=== PATIENT | female | born 1955 | race Caucasian/White ===

== ENCOUNTER → 2017-08-07 09:09 | Outpatient (POV) | payer MEDICARE, SELFPAY | PROVIDERS: PCP Family Medicine; Visit Provider Otolaryngology | DX: Z00.00 Encounter for general adult medical examination without abnormal findings (principal) ==

== ENCOUNTER → 2018-07-03 14:05 | Outpatient (CLI) | payer MEDICARE, SELFPAY ==
--- NOTE | 2018-07-03 14:16 | XR_ITS ---
XR ribs LT min 3V w CXR1V HISTORY: ITS.REASON: LT SIDE RIB PAIN ORDERING PHYSICIAN: Fanta Molina MD PATIENT AGE: 62 years Comparison: 12/15/2016 FINDINGS: A frontal view of the chest shows no acute finding. Multiple views of the Left ribs were obtained. No acute fracture or dislocation. No lytic or blastic change. There are old fractures of the right sixth and seventh ribs. IMPRESSION: Negative left RIBS. If pain persists, consider follow-up exam in 7-[address] with 3-D reformats.
--- NOTE | 2018-07-03 14:16 | XR_ITS ---
EXAM: XR thoracic spine 3V HISTORY: Posttraumatic pain ITS.REASON: THORACIC PAIN Comparison: 09/12/2016 FINDINGS: Normal alignment. No fracture or dislocation. No lytic or blastic change. Degenerative disc disease involves the mid and lower thoracic spine with prominent anterior osteophytes at T9, T10, and T11. IMPRESSION: Degenerative change, no acute finding
== END ==
PROVIDERS: PCP Family Medicine; Visit Provider Family Medicine
DX: M54.6 Pain in thoracic spine (principal); R07.81 Pleurodynia
CPT/HCPCS: 71101; 72072

== ENCOUNTER → 2018-12-09 12:07 | Outpatient (CLI) | payer MEDICARE, SELFPAY ==
--- NOTE | 2018-12-09 12:12 | XR_ITS ---
EXAM: XR cervical spine 5V HISTORY: Neck pain ITS.REASON: CERVICAL PAIN ORDERING PHYSICIAN: Carole Orozco APRN PATIENT AGE: 63 years COMPARISON: None FINDINGS: There is slight reversal of the cervical lordosis. This could be due to patient positioning or muscle spasm. There is minimal anterolisthesis of C3 on C4 with mild kyphosis at that level. No prevertebral soft tissue swelling. There is degenerative disc disease at C3 C4 C4 C5 C5 C6 and C6-C7. This is most severe at C5-C6 and C6-C7. There are anterior osteophytes at C4, C5, and C6. Foraminal narrowing is present on the right at C4-C5 and on the left at C4-C5 and C5-C6. Facet hypertrophic changes are present from C3 to C6. No fracture or dislocation. No lytic or blastic change. IMPRESSION: Spondylosis of the cervical spine with multilevel degenerative disc disease and facet arthritic change. Please see above for detailed description
== END ==
PROVIDERS: PCP Nurse Practitioner Family; Visit Provider Nurse Practitioner Family
DX: M54.2 Cervicalgia (principal)
CPT/HCPCS: 72050

== ENCOUNTER → 2018-12-10 08:42 | Outpatient (CLI) | payer MEDICARE, SELFPAY ==
[2018-12-10 09:05] LABS: Basophils % 0.5 % (0.1-2.0); Eosinophils # 0.2 K/mm3 (0.0-0.4); Eosinophils % 3.6 % (0.1-12.0); Hematocrit 43.2 % (37.0-47.0); Hemoglobin 13.9 g/dL (12.2-16.2); Lymphocytes # 1.4 K/mm3 (0.7-4.5); Lymphocytes % 25.5 % (10-50); Mean Corpuscular HGB Conc 32.1 g/dL (31.8-35.4); Mean Corpuscular Hemoglobin 25.7 pg (27.0-31.2); Mean Corpuscular Volume 80.1 fl (81-99); Mean Platelet Volume 8.9 fl (7.4-10.4); Monocytes # 0.4 K/mm3 (0.1-1.0); Monocytes % 7.2 % (1.7-9.3); Neutrophils # 3.4 K/mm3 (1.8-7.8); Neutrophils % 63.1 % (37.0-80.0); Platelet Count 166 K/mm3 (142-424); Red Blood Count 5.39 M/mm3 (4.20-5.40); Red Cell Distribution Width 13.3 % (11.5-17.5); White Blood Count 5.3 K/mm3 (4.8-10.8)
[2018-12-10 12:11] LABS: Alanine Aminotransferase 35 U/L (12-78); Albumin Level 3.9 gm/dL (3.4-5.0); Albumin/Globulin Ratio 1.3 (1.1-1.8); Alkaline Phosphatase 141 U/L (46-116); Aspartate Amino Transferase 17 U/L (15-37); Bilirubin,Total 0.4 mg/dL (0.2-1.0); Blood Urea Nitrogen 19 mg/dL (7-18); Calcium 8.9 mg/dL (8.5-10.1); Carbon Dioxide 28 mmol/L (21.0-32.0); Chloride 105 mmol/L (98-107); Chol/HDL Ratio 7.4 (1-3.5); Cholesterol 237 mg/dL (140-200); Creatinine,Serum 0.72 mg/dL (0.55-1.02); Estimated Glomerular Filt Rate 81 ml/min (>60); GFR (African American) 98 ML/MIN (>60); Glucose 188 mg/dL (74-106); HDL Cholesterol 32 mg/dL (29-89); Sodium 141 mmol/L (136-145); Total Protein,Serum 6.9 gm/dL (6.4-8.2)
[2018-12-10 12:20] LABS: Triglycerides 457 mg/dL (30-200)
[2018-12-10 12:21] LABS: Hemoglobin A1C 7.4 % (0.0-7.0)
== END ==
PROVIDERS: Visit Provider Nurse Practitioner Family
DX: E11.9 Type 2 diabetes mellitus without complications (principal); Z13.220 Encounter for screening for lipoid disorders
CPT/HCPCS: 36415; 80053; 80061; 83036; 85025

== ENCOUNTER → 2019-12-15 09:32 | Outpatient (CLI) | payer MEDICARE, SELFPAY ==
--- NOTE | 2019-12-15 09:42 | MR_ITS ---
PROCEDURE: MR HEAD/BRAIN WO/W CON CLINICAL INDICATION: IMBALANCE Imbalance when walking, shifts to the right COMPARISON: HWWO CT HEAD-W/WO CONTRAST from 04/19/2015 TECHNIQUE: Routine multiplanar multi echo sequences are performed without and with gadolinium enhancement. FINDINGS: No midline shift, mass effect, intracranial hemorrhage, or hydrocephalus. No evidence of acute infarction. The cerebellopontine angle, cerebellum, midbrain, and brainstem have an unremarkable appearance. No evidence of acute infarction. No enhancing lesions are evident. There are a few periventricular and subcortical T2 white matter hyperintensities noted. These do not demonstrate restricted diffusion and do not enhance with contrast. The pituitary, optic chiasm, corpus callosum, and craniocervical junction have an unremarkable appearance. No mastoid effusion or sinus air-fluid level. IMPRESSION: 1. No acute intracranial finding. 2. Nonspecific scattered periventricular and subcortical T2 white matter hyperintensities. This may represent ischemic gliotic foci from microvascular disease. Migraine headache also included in the differential diagnosis. Demyelinating process not totally excluded but felt to be less likely based on characteristics Dictated by: Edgar Otoole MD 12/16/2019 11:37 Electronically signed by Edgar Otoole MD in [place] 12/16/2019 11:37
--- NOTE | 2019-12-15 10:39 | CA_ITS ---
APPROVED REPORT Travel Professional: ELLEN Laterality: Bilateral Indications: imbalance Risk Factors Hypertension: Hyperlipidemia Doppler Spectral Velocity Analysis ECA (R) 111.40/15.40 cm/s ECA (L) 89.10/19.70 cm/s dICA (R) 77.10/24.40 cm/s dICA (L) 100.20/35.10 cm/s Lili (R) 80.30/28.30 cm/s Lili (L) 91.70/30.80 cm/s pICA (R) 71.30/18.00 cm/s pICA (L) 54.00/15.00 cm/s dCCA (R) 54.00/9.40 cm/s dCCA (L) 74.80/19.50 cm/s pCCA (R) 127.20/24.60 cm/s pCCA (L) 101.00/17.20 cm/s Vert (R) 51.40/9.00 cm/s Vert (L) 57.40/12.90 cm/s ICA/CCA 1.49 ICA/CCA 1.34 Findings Duplex evaluation demonstrates stenosis of the right proximal internal carotid artery <20% with PSV <140 cm/sec, EDV <100 cm/sec, and IC/CC Ratio <4.0.Duplex evaluation demonstrates stenosis of the left proximal internal carotid artery <20% with PSV <140 cm/sec, EDV <100 cm/sec, and IC/CC Ratio <4.0. Conclusion No increased velocities to suggest hemodynamically significant stenosis in either internal carotid artery. Electronically signed by : Edgar Otoole MD 12/15/2019 18:06:56
== END ==
PROVIDERS: PCP Family Medicine; Visit Provider Family Medicine
DX: R26.89 Other abnormalities of gait and mobility (principal)
CPT/HCPCS: 70553; 93880; A9576

== ENCOUNTER → 2020-08-03 11:26 | Outpatient (CLI) | payer MEDICARE, SELFPAY ==
--- NOTE | 2020-08-03 11:46 | CT_ITS ---
PROCEDURE: CT ABDOMEN PELVIS W CON CLINICAL INDICATION: DIVERTICULITIS Left sided abdominal pain with diarrhea COMPARISON: CT ABDPELW CT ABD PELVIS W/ CONTRAST from 05/19/2016 TECHNIQUE: IV Contrast: 75ML Isovue 370 Oral Contrast None Axial images obtained with sagittal and coronal reformats. All CT scans at the facility use one or more dose reduction, viz: automated exposure control, ma/kV adjustment per patient size (including targeted exams where dose is matched to indication, i.e. head), or iterative reconstruction technique. FINDINGS: LOWER THORAX: 12 mm noncalcified nodules present in the left lung base posteriorly. This has developed since the previous exam. ABDOMEN & PELVIS: The liver has an unremarkable appearance. There is a small hiatal hernia. The spleen is enlarged at 18 cm. There are some small periportal lymph nodes. The adrenal glands and pancreas have an unremarkable appearance. No renal or ureteral calculi. No hydronephrosis. There is diverticulosis of the transverse descending and sigmoid colon. There is focal thickening of the junction of the descending and sigmoid colon with stranding of the pericolic fat consistent with acute diverticulitis. No abscess. No free air.. Suspect hemangioma involvement of T9 with some mild compression changes. There are degenerative changes of the lumbar spine. IMPRESSION: 1. Acute diverticulitis of the junction of the descending and sigmoid colon in the left lower quadrant. No evidence of abscess or perforation. 2. Colonic diverticulosis 3. Small hiatal hernia. 4. Splenomegaly. 5. 12 mm noncalcified nodule left lower lobe. Nonemergent dedicated CT chest may provide further evaluation. This has developed since the previous exam. Neoplasm is not excluded. Dictated by: Edgar Otoole MD 08/03/2020 15:55 Edgar Otoole MD in [place] 08/03/2020 15:55
[2020-08-03 11:55] LABS: Blood Urea Nitrogen 10 mg/dl (7-17); Estimated Glomerular Filt Rate 100 ml/min (>60); GFR (African American) 121 ML/MIN (>60)
== END ==
PROVIDERS: Visit Provider Family Medicine
DX: K57.92 Diverticulitis of intestine, part unspecified, without perforation or abscess without bleeding (principal)
CPT/HCPCS: 36415; 74177; 82565; 84520; Q9967

== ENCOUNTER → 2020-08-06 11:13 | Outpatient (CLI) | payer MEDICARE, SELFPAY ==
--- NOTE | 2020-08-06 11:17 | CT_ITS ---
PROCEDURE: CT CHEST W CON CLINCAL INDICATION: LUNG NODULE lung nodule seen on ct a/p, 08/03/20 COMPARISON: CT ABDPELW CT ABD PELVIS W/ CONTRAST from 05/19/[address] ABDOMEN PELVIS W CON from 08/03/2020 TECHNIQUE: IV Contrast: 75ml Isovue 370 Axial images obtained with sagittal and coronal reformats. All CT scans at the facility use one or more dose reduction, viz: automated exposure control, ma/kV adjustment per patient size (including targeted exams where dose is matched to indication, i.e. head), or iterative reconstruction technique. FINDINGS: HEART AND MEDIASTINAL STRUCTURES: There are few small mediastinal lymph nodes. No dominant adenopathy. No mediastinal or hilar mass. 1 cm hypodensity left lobe of the thyroid gland with small calcification. The left lobe of the thyroid gland is slightly enlarged. LUNGS AND PLEURAL SPACES: There are scattered areas of scarring. Subpleural opacity is present in the left upper lobe laterally at 4 mm nonspecific. 4 mm nodular opacity is present in the lingula posteriorly image 36 series 3. There is a 15 mm spiculated nodule in the left lower lobe with some micro nodularity along its inferior aspect. This is suspicious for neoplasm. This nodule abuts the hemidiaphragm along its inferior margin. BONY STRUCTURES: There is sclerosis of the T10 vertebral body with a corrugated appearance which may be due to hemangiomatous involvement UPPER ABDOMEN: Unremarkable. ADDITIONAL FINDINGS: No other significant abnormalities. IMPRESSION: 15 mm spiculated nodule in the left lower lobe suspicious for neoplasm. Pulmonology consult may be in order. PET CT and or tissue sampling considered for further evaluation.. Dictated by: Edgar Otoole MD 08/08/2020 11:31 Edgar Otoole MD in [place] 08/08/2020 11:31
== END ==
PROVIDERS: PCP Family Medicine; Visit Provider Family Medicine
DX: R91.1 Solitary pulmonary nodule (principal)
CPT/HCPCS: 71260; Q9967

== ENCOUNTER → 2020-09-13 09:40 | Outpatient (CLI) | payer MEDICARE, SELFPAY ==
--- NOTE | 2020-09-13 10:45 | PC.NURSE ---
PFT completed without incident. Pt given Albuterol 0.083% via [facility] per written protocol, Pt tolerated tx well. 6 Minute Walk Test ordered however Pt refuses. 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 Contreras.
== END ==
PROVIDERS: PCP Family Medicine; Visit Provider Internal Medicine Pulmonary Disease
DX: R06.09 Other forms of dyspnea (principal)
CPT/HCPCS: 94060; 94726; 94729

== ENCOUNTER → 2020-10-19 09:40 | Outpatient (CLI) | payer MEDICARE, SELFPAY ==
--- NOTE | 2020-10-19 09:40 | US_ITS ---
PROCEDURE: US FNA THYROID CLINICAL INDICATION: Thyroid nodule COMPARISON: US US THYROID from 10/19/2020 TECHNIQUE: There is a dominant nodule in the lower pole on the left. This area was targeted for biopsy. Following obtaining informed consent, using aseptic technique and local anesthesia with buffered lidocaine, fine-needle aspiration was performed of the nodule of interest using sonographic guidance. 3 passes were made into the nodule with a 21 gauge needle. Specimen was given to cytology. The patient tolerated the procedure well without evidence of immediate complications and left the ultrasound suite in stable condition. FINDINGS: There is a dominant nodule in the lower pole on the left. CYTOLOGY: Atypical follicular lesion of undetermined significance, Hurthle cell type IMPRESSION: Uneventful ultrasound-guided fine needle aspiration the left thyroid nodule. 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
--- NOTE | 2020-10-19 10:06 | US_ITS ---
PROCEDURE: US THYROID CLINICAL INDICATION: LT THYROID NODULE COMPARISON: CT CT CHEST W CON from 08/06/2020 FINDINGS: Right lobe: 3.2 x 1.2 x 1 cm. Homogeneous echogenicity. No discrete nodule Left lobe: 3.9 x 1.9 x 1.9 cm. In the upper pole there is a slightly hyperechoic 5 mm nodule. In the mid polar region there is a 3 mm hypoechoic nodule. In the lower pole there is a dominant 2 x 1.8 cm nodule with some internal calcifications. The nodule is wider than tall with a lobular contour. T rads level 4. FNA recommended. Isthmus: Unremarkable Additional findings: IMPRESSION: Dominant 2 cm nodule in the lower pole of the left lobe of the thyroid gland T rads level 4. FNA suggested which was performed on the same day. Dictated by: Edgar Otoole MD 10/19/2020 11:03 Edgar Otoole MD in [place] 10/19/2020 11:03
== END ==
PROVIDERS: PCP Family Medicine; Visit Provider Internal Medicine Pulmonary Disease
DX: E04.1 Nontoxic single thyroid nodule (principal)
CPT/HCPCS: 10005; 76536; 88173

== ENCOUNTER → 2020-11-15 15:51 | Outpatient (CLI) | payer MEDICARE, SELFPAY ==
--- NOTE | 2020-11-15 15:57 | XR_ITS ---
PROCEDURE: XR ANKLE LT MIN 3V CLINICAL INDICATION: FELL OFF PORCH 24 HOURS AGO..PAIN AND SWELLING COMPARISON: CR FTL3 FOOT-LT-3 VIEWS from 07/22/2015 FINDINGS: Prominent soft tissue swelling is present along the lateral malleolus. There is a faint calcific density distal to the tip of the lateral malleolus suspicious for an avulsion fracture. The fracture fragment measures approximately 9 x 2 mm. The bone of origin is undetermined based on this exam. Bone of origin may be either from the talus or the distal fibula. There is also noted prior ORIF with fusion of the 1st carpal and medial cuneiform. The proximal screw within the bone plate is fractured and the screw fragments are distracted by 5 mm. The longitudinal screw within the 1st metacarpal and medial cuneiform is also fracture proximally. The prosthesis is incompletely imaged. IMPRESSION: 1. Avulsion fracture at the distal aspect of the fibula/proximal talus with soft tissue swelling 2. At least 2 screws fractured at the 1st metacarpal carpal bone plate. Dictated by: Edgar Otoole MD 11/15/2020 16:30 Edgar Otoole MD in [place] 11/15/2020 16:30
== END ==
PROVIDERS: PCP Family Medicine; Visit Provider Family Medicine
DX: M25.572 Pain in left ankle and joints of left foot (principal)
CPT/HCPCS: 73610

== ENCOUNTER 2020-11-17 09:24 | Outpatient (RCR) | payer MEDICARE, SELFPAY | END 2020-11-17 10:47 | disposition home or self-care (01) | LOC: PT 09:24 | PROVIDERS: Visit Provider Family Medicine | DX: S82.892A Other fracture of left lower leg, initial encounter for closed fracture (principal) | CPT/HCPCS: 97760 ==

== ENCOUNTER → 2020-11-17 09:56 | Outpatient (CLI) | payer MEDICARE, SELFPAY ==
--- NOTE | 2020-11-17 10:07 | XR_ITS ---
PROCEDURE: XR FOOT WT BEARING LT 3V CLINICAL INDICATION: Pain, hardware failure COMPARISON: CR FTL3 FOOT-LT-3 VIEWS from 05/13/2015 CR FTL3 FOOT-LT-3 VIEWS from 07/22/2015 CR FTL3 FOOT-LT-3 VIEWS from 02/15/2016 FINDINGS: Hallux valgus with osteoarthritis 1st metatarsophalangeal joint slightly worse. Two screws are present in the distal aspect of the 2nd metatarsal with an old fracture at this area. There is a dorsal bone plate at the 1st metatarsal tarsal junction with prominent zone of lucency deep to the bone plate. There is a fractured screw which is along the medial and proximal aspect of this bone plate. Along the distal and medial aspect of the bone plate there is an additional screw which appears to be distracting withdrawing approximately 4 mm from the surface of the bone plate. A longitudinal screw extending from the base of the 1st metatarsal into the medial cuneiform is fractured in the medial cuneiform area. There is pes planus. There is prominent bony spurring along the dorsal aspect of the 1st tarsal metatarsal junction. Osteoarthritic changes are present at the navicular cuneiform and tarsal metatarsal junction. There is pes planus. IMPRESSION: Findings are compatible with hardware failure from prior 1st tarsal metatarsal fusion as detailed above. Hallux valgus with osteoarthritis Prior ORIF distal aspect of 2nd metatarsal. Dictated by: Edgar Otoole MD 11/17/2020 12:18 Edgar Otoole MD in [place] 11/17/2020 12:18
== END ==
PROVIDERS: PCP Family Medicine; Visit Provider Podiatrist
DX: M79.673 Pain in unspecified foot (principal); Z96.9 Presence of functional implant, unspecified
CPT/HCPCS: 73630

== ENCOUNTER → 2020-12-03 14:53 | Outpatient (CLI) | payer MEDICARE, SELFPAY ==
--- NOTE | 2020-12-03 14:53 | CT_ITS ---
PROCEDURE: CT CHEST WO CON CLINICAL INDICATION: 3 moth F/U from 09/13/20 Follow-up pulmonary nodule COMPARISON: CT ABDPELW CT ABD PELVIS W/ CONTRAST from 04/05/[address] ABD PELVIS W/ CONTRAST from 05/19/[address] CHEST W CON from 08/06/2020 TECHNIQUE: Axial images obtained with sagittal and coronal reformats. All CT scans at the facility use one or more dose reduction, viz: automated exposure control, ma/kV adjustment per patient size (including targeted exams where dose is matched to indication, i.e. head), or iterative reconstruction technique. FINDINGS: HEART AND MEDIASTINAL STRUCTURES: Left lobe of the thyroid gland is prominent with a 1 cm nodule as previously described. No mediastinal or hilar mass. There are few small mediastinal nodes unchanged. Coronary artery calcifications are present. There is a small hiatal hernia. LUNGS AND PLEURAL SPACES: Scattered areas of scarring are once again noted. A spiculated nodule is once again noted in the left lower lobe in the lung base posteriorly. The nodule does not appear significantly changed in size and at the largest dimensions measures approximately 16 x 14 mm. No new nodules are evident. BONY STRUCTURES: There is mixed sclerotic and lucent changes of the T9 vertebral body with a corrugated appearance consistent with a hemangioma not significantly changed dating back to 04/05/2016. UPPER ABDOMEN: Fatty liver changes. Unremarkable adrenal glands. ADDITIONAL FINDINGS: There is a nodular density in the right breast superior and lateral to the nipple measuring approximately 8 mm. IMPRESSION: Overall stable CT appearance of the chest. No change in the sclerotic lesion of the left lower lobe. Continued follow-up suggested. Neoplasm is not excluded. 8 mm nodular opacity in the right breast laterally. Suggest mammogram and ultrasound for further evaluation. Dictated by: Edgar Otoole MD 12/06/2020 08:30 Edgar Otoole MD in [place] 12/06/2020 08:30
== END ==
PROVIDERS: PCP Family Medicine; Visit Provider Internal Medicine Pulmonary Disease
DX: R91.8 Other nonspecific abnormal finding of lung field (principal)
CPT/HCPCS: 71250

== ENCOUNTER → 2020-12-17 13:24 | Outpatient (CLI) | payer MEDICARE, SELFPAY ==
--- NOTE | 2020-12-17 13:25 | XR_ITS ---
PROCEDURE: XR DEXA AXIAL SKELETON CLINICAL HISTORY: surgical planning COMPARISON: CR BONE3 BONE DENSITOMETRY(HIP:LT SPINE from 09/15/2016 FINDINGS: The right hip BMD is 0.595 with a T-score of -2.3. The left hip BMD is 0.602 with a T-score of -2.2. The lumbar spine BMD is 0.988 with a T-score of -0.5. IMPRESSION: This patient is considered osteopenic according to the World Health Organization criteria. Bone density is between 10 and 25 percent below young normal. Fracture risk is moderate. Treatment is advised. Based on these results a follow-up exam is recommended in 2 years. Dictated by: Andrea Faulkner MD 12/17/2020 14:33 Andrea Faulkner MD in [place] 12/17/2020 14:33
--- NOTE | 2020-12-17 13:57 | CT_ITS ---
PROCEDURE INFORMATION: Exam: CT Left Lower Extremity Without Contrast, Foot Exam date and time: 12/17/2020 1:57 PM Age: 65 years old Clinical indication: Pain; Foot; Right; Prior surgery; Surgery date: 6+ months; Additional info: HX of bunionectomy, hardware failure. TECHNIQUE: Imaging protocol: CT of the Left lower extremity without contrast was performed. Exam focused on the foot. 3D rendering (Not supervised by radiologist): MIP and/or 3D reconstructed images were created by the technologist. Radiation optimization: All CT scans at this facility use at least one of these dose optimization techniques: automated exposure control; mA and/or kV adjustment per patient size (includes targeted exams where dose is matched to clinical indication); or iterative reconstruction. COMPARISON: EXTLLWO CT EXT.LOWER-LT-W/O CONTRAST 02/22/2016 8:00 AM FINDINGS: Bones/joints: Postoperative changes of the 1st tarsometatarsal joint are present with plate and screws in place. There is loosening of the hardware noted. There is a fracture of a screw along the medial bony plate at the 1st tarsometatarsal joint with a 2nd screw noted with slight distraction. There is a fracture of the screw present at the base of the 1st metatarsal into the medial cuneiform. Hallux valgus deformity is present. Postoperative changes of the distal 2nd metatarsal with pins in place. There is no evidence of acute fracture. There is no evidence of acute fracture. There is no evidence of joint malalignment or dislocation. Arthritic changes of the 1st metatarsophalangeal joint present. Soft tissues: Normal. IMPRESSION: 1. Postoperative changes of the 1st tarsometatarsal joint are present with plate and screws in place. There is loosening of the hardware noted. 2. There is a fracture of a screw along the medial bony plate at the 1st tarsometatarsal joint with a 2nd screw noted with slight distraction. 3. There is a fracture of the screw present at the base of the 1st metatarsal into the medial cuneiform. 4. Hallux valgus deformity is present. 5. Postoperative changes of the distal 2nd metatarsal with pins in place. 6. No evidence of acute fracture. 7. No evidence of acute fracture. 8. No evidence of acute dislocation. 9. Arthritic changes of the 1st metatarsophalangeal joint present.
== END ==
PROVIDERS: PCP Family Medicine; Visit Provider Nurse Practitioner
DX: M81.0 Age-related osteoporosis without current pathological fracture (principal); Z98.890 Other specified postprocedural states
CPT/HCPCS: 73700; 77080

== ENCOUNTER → 2021-01-12 15:22 | Outpatient (CLI) | payer MEDICARE, SELFPAY | PROVIDERS: Visit Provider Otolaryngology | DX: Z01.818 Encounter for other preprocedural examination (principal); Z11.52 Encounter for screening for COVID-19; E07.9 Disorder of thyroid, unspecified | CPT/HCPCS: U0003 ==

== ENCOUNTER → 2021-06-13 14:50 | Outpatient (CLI) | payer MEDICARE, SELFPAY ==
--- NOTE | 2021-06-13 14:50 | CT_ITS ---
PROCEDURE INFORMATION: Exam: CT Chest Without Contrast; Diagnostic Exam date and time: 06/13/2021 2:50 PM Age: 65 years old Clinical indication: Abnormal findings; Lung mass or nodule; Not specified; Patient HX: 6 month f/ u left lung nodule; Additional info: 6-month follow-up TECHNIQUE: Imaging protocol: Diagnostic computed tomography of the chest without contrast. Radiation optimization: All CT scans at this facility use at least one of these dose optimization techniques: automated exposure control; mA and/or kV adjustment per patient size (includes targeted exams where dose is matched to clinical indication); or iterative reconstruction. COMPARISON: CT CHEST WO CON 12/03/2020 3:[address] chest dated 08/06/2020 FINDINGS: Lungs: Irregular noncalcified nodule within the left lower lobe measuring 16 x 14 mm (series 3, image 56), not significantly changed from comparison studies. No new pulmonary nodules. Pleural spaces: Unremarkable. No pneumothorax. No pleural effusion. Heart: Mild three-vessel coronary artery atherosclerotic calcification. Aorta: No aortic aneurysm. Lymph nodes: No enlarged lymph nodes. Diaphragm: Small-sized hiatal hernia. Liver: Mild hepatic steatosis. Bones/joints: Hemangioma within the T9 vertebral body, unchanged. Multilevel thoracic spine degenerative disc space narrowing and osteophyte formation. Soft tissues: No significant change in previously described 8 mm soft tissue attenuation nodule within the right breast. IMPRESSION: 1. Irregular noncalcified nodule within the left lower lobe measuring 16 x 14 mm (series 3, image 56), not significantly changed from comparison studies. No new pulmonary nodules.For both low risk and high risk patients, consider CT Chest at 3 months, PET/CT, or biopsy. (Reference: Tory) 2. No acute thoracic abnormality. REFERENCES: Tory Marie et al. Guidelines for Management of Incidental Pulmonary Nodules Detected on CT Images: From the Fleischner Society 2017. Radiology. 2017;284(1):228-243.
== END ==
PROVIDERS: PCP Family Medicine; Visit Provider Internal Medicine Pulmonary Disease
DX: R91.8 Other nonspecific abnormal finding of lung field (principal)
CPT/HCPCS: 71250

== ENCOUNTER → 2021-08-12 09:25 | Outpatient (CLI) | payer MEDICARE, SELFPAY ==
[2021-08-12 10:19] LABS: Basophils # 0.1 K/mm3 (0-0.2); Basophils % 1.2 % (0.1-2.0); Eosinophils # 0.2 K/mm3 (0.0-0.4); Eosinophils % 4.1 % (0.1-12.0); Hematocrit 41.9 % (37.0-47.0); Hemoglobin 13.5 g/dL (12.2-16.2); Lymphocytes # 1.2 K/mm3 (0.7-4.5); Mean Corpuscular HGB Conc 32.1 g/dL (31.8-35.4); Mean Corpuscular Hemoglobin 28.8 pg (27.0-31.2); Mean Corpuscular Volume 89.5 fl (81-99); Monocytes # 0.3 K/mm3 (0.1-1.0); Monocytes % 5.3 % (1.7-9.3); Neutrophils # 3.5 K/mm3 (1.8-7.8); Neutrophils % 66.4 % (37.0-80.0); Platelet Count 154 K/mm3 (142-424); Red Blood Count 4.67 M/mm3 (4.20-5.40); Red Cell Distribution Width 14.1 % (11.5-17.5); White Blood Count 5.2 K/mm3 (4.8-10.8)
[2021-08-12 11:22] LABS: Alanine Aminotransferase 26 U/L (12-78); Albumin Level 4.6 g/dl (3.5-5.0); Albumin/Globulin Ratio 1.9 (1.1-1.8); Alkaline Phosphatase 104 U/L (38-126); Aspartate Amino Transferase 26 U/L (14-36); Bilirubin,Total 0.6 mg/dl (0.2-1.3); Blood Urea Nitrogen 12 mg/dl (7-17); Calcium 8.9 mg/dl (8.4-10.2); Carbon Dioxide 26 mmol/L (22.0-30.0); Chloride 104 mmol/L (98-107); Estimated Glomerular Filt Rate 83 ml/min (>60); GFR (African American) 101 ML/MIN (>60); Globulin 2.4 g/dL (1.3-3.2); Glucose 283 mg/dl (74-100); Sodium 138 mmol/L (136-145)
[2021-08-12 11:28] LABS: C-Reactive Protein 5.1 mg/L (0-4)
[2021-08-12 11:33] LABS: Intact Parathyroid Hormone 60.2 pg/mL (7.5-53.5)
[2021-08-12 11:38] LABS: T4 (Thyroxine) 6.5 ug/dl (5.53-11.0)
[2021-08-12 12:50] LABS: Erythrocyte Sedimentation Rate 25 mm/hr (0-30)
[2021-08-22 09:10] LABS: 1,25 Dihydroxy Vitamin D 66 pg/mL (.); 1,25-Dihydroxy, Vitamin D-2 <10 pg/mL (.); 1,25-Dihydroxy, Vitamin D-3 57 pg/mL (.)
[2021-08-26 21:43] LABS: Cotinine 19.8; Nicotine 1.6
== END ==
PROVIDERS: Podiatrist; PCP Family Medicine; Visit Provider Otolaryngology
DX: E04.1 Nontoxic single thyroid nodule (principal); E11.40 Type 2 diabetes mellitus with diabetic neuropathy, unspecified; M20.12 Hallux valgus (acquired), left foot; M21.612 Bunion of left foot; Z98.890 Other specified postprocedural states; L02.619 Cutaneous abscess of unspecified foot; L03.119 Cellulitis of unspecified part of limb; T85.698A Other mechanical complication of other specified internal prosthetic devices, implants and grafts, initial encounter; Z79.899 Other long term (current) drug therapy; Z79.84 Long term (current) use of oral hypoglycemic drugs
CPT/HCPCS: 36415; 80053; 80323; 82652; 83970; 84436; 84443; 85025; 85651; 86140

== ENCOUNTER → 2021-10-10 13:20 | Outpatient (CLI) | payer MEDICARE, SELFPAY ==
--- NOTE | 2021-10-10 13:24 | XR_ITS ---
FINAL REPORT CLINICAL HISTORY: LEFT FOOT PAIN COMPARISON: November 17, 2020 FINDINGS: 3 views of the left foot were obtained. There is a sideplate and screws securing the 1st tarsometatarsal joint. There are orthopedic screws in the 2nd metatarsal head. There are moderate hypertrophic changes at the 1st MTP joint. IMPRESSION: Postoperative changes, stable. Reviewed, Interpreted and Dictated by Meek Roy MD Transcribed by Kurt Herrera Authenticated by Meek Roy MD on 10/10/2021 02:41:42 PM [facility]
== END ==
PROVIDERS: PCP Family Medicine; Visit Provider Podiatrist
DX: M20.12 Hallux valgus (acquired), left foot (principal); M21.612 Bunion of left foot; Z96.9 Presence of functional implant, unspecified; Z98.890 Other specified postprocedural states
CPT/HCPCS: 73630

== ENCOUNTER 2021-10-19 17:01 | Emergency (ER) | payer MEDICARE, SELFPAY ==
[2021-10-19 19:15] VITALS: BP 0/0; PULSE 0; RESP 0; TEMP -17.7; TEMP 0; O2SAT 0
== END 2021-10-19 19:17 | disposition left against medical advice (07) ==
PROVIDERS: Emergency Provider Emergency Medicine; PCP Family Medicine
DX: Z53.21 Procedure and treatment not carried out due to patient leaving prior to being seen by health care provider (principal)
CPT/HCPCS: 99211

== ENCOUNTER → 2021-11-14 14:14 | Outpatient (CLI) | payer MEDICARE, SELFPAY ==
[2021-11-14 17:17] LABS: Free T4 (Free Thyroxine) 2.14 ng/dl (0.78-2.19)
== END ==
PROVIDERS: Visit Provider Otolaryngology
DX: E89.0 Postprocedural hypothyroidism (principal)
CPT/HCPCS: 36415; 84439; 84443

== ENCOUNTER → 2022-03-16 09:13 | Outpatient (CLI) | payer MEDICARE, SELFPAY ==
--- NOTE | 2022-03-16 09:17 | XR_ITS ---
FINAL REPORT TECHNIQUE: Bone densitometry calculations of the lumbar spine and left hip were obtained. CLINICAL HISTORY: .OSTEOPOROSIS COMPARISON: December 17, 2020 FINDINGS: DEXA BONE DENSITY AXIAL SKELETON Using L1-4, the bone mineral density of the spine is 0.955 g/cm2, corresponding to T-score of -0.8. Previously measured 0.988 g/cm2, corresponding to T-score of -0.5. Using the left hip, the bone mineral density of the femoral neck is 0.638 g/cm2, corresponding to a T-score of -1.9. Previously measured 0.602 g/cm2, corresponding to T-score of -2.2. NOTE: T-score: Standard deviation compared with peak bone mass of young adult mean. *Following the recommendations of the International Society of Bone densitometry, classification of hip BMD is based on the lower of two T-scores; total hip or femoral neck. IMPRESSION: Diminished bone mineral density of the lumbar spine and left hip consistent with osteopenia. FRAX 10 year fracture risk is 2.6% for a hip fracture and 11% for a major osteoporotic fracture. Reviewed, Interpreted and Dictated by Marco Herrera III, MD Transcribed by Heather Hamilton Authenticated and [facility]
== END ==
PROVIDERS: PCP Family Medicine; Visit Provider Family Medicine
DX: Z78.0 Asymptomatic menopausal state (principal)
CPT/HCPCS: 77080

== ENCOUNTER → 2022-06-07 10:59 | Outpatient (CLI) | payer MEDICARE, SELFPAY ==
--- NOTE | 2022-06-07 11:01 | CT_ITS ---
FINAL REPORT CLINICAL HISTORY: LUNG LESION COMPARISON: August 2020 FINDINGS: Before and after the administration of intravenous contrast, axial images through the chest were performed by computed tomography. This study was performed with techniques to keep radiation doses as low as reasonably achievable, (ALARA). Individualized dose reduction techniques using automated exposure control or adjustment of mA and/or kV according to the patient's size were employed. There is no axillary adenopathy. There is no hilar or mediastinal adenopathy. The heart size is normal. There is no pericardial or pleural effusion. Limited images of the upper abdomen demonstrate a small amount of ascites, new from prior. One there is a 16 mm left lower lobe nodule that previously measured 16 mm. No new infiltrate or nodule identified. IMPRESSION: Stable left lower lobe nodule is very likely benign. Additional follow-up in 1 year is recommended to evaluate for continued stability. Small amount of ascites in the upper abdomen, new. Reviewed, Interpreted and Dictated by Marco Herrera III, MD Transcribed by Kurt Herrera Authenticated and . [facility]
== END ==
PROVIDERS: PCP Family Medicine; Visit Provider Family Medicine
DX: R91.1 Solitary pulmonary nodule (principal)
CPT/HCPCS: 71270; Q9967

== ENCOUNTER → 2022-06-14 08:37 | Outpatient (CLI) | payer MEDICARE, SELFPAY ==
--- NOTE | 2022-06-14 08:43 | NM_ITS ---
FINAL REPORT CLINICAL HISTORY: DIFFUSE PAIN, lt hip pain, h/o breast cancer and thyroid cancer COMPARISON: Chest CT June 07, 2022 FINDINGS: Multiple projection images of the axial and appendicular skeleton were obtained after the intravenous injection of 26.2 mCi technetium 99m MDP. A focal area of increased tracer activity is seen in the lower thoracic spine. This corresponds to a mixed lytic and sclerotic lesion on the CT and is consistent with a bony metastasis. There is increased tracer activity involving the shoulders, knees and feet felt to represent degenerative change. No other area of abnormal tracer activity is identified to suggest neoplastic involvement. IMPRESSION: Focal increased tracer activity in the lower thoracic spine corresponding to a bony lesion on CT, and consistent with bony metastatic disease. No other abnormality identified to suggest neoplastic involvement. Authenticated and [facility]
== END ==
PROVIDERS: PCP Family Medicine; Visit Provider Family Medicine
DX: R52 Pain, unspecified (principal)
CPT/HCPCS: 78306; A9503

== ENCOUNTER → 2022-06-22 08:23 | Outpatient (CLI) | payer MEDICARE, SELFPAY ==
--- NOTE | 2022-06-22 08:25 | US_ITS ---
FINAL REPORT CLINICAL HISTORY: EPIGASTRIC PAIN FINDINGS: Limited sonographic images were obtained of the abdomen to evaluate the abdominal aorta and iliac arteries. The images are partially obscured secondary to bowel gas. There is no evidence of abdominal aortic aneurysm, the aorta measures up to 1.8 cm in greatest dimension. IMPRESSION: Partially obscured secondary to bowel gas. No evidence of abdominal aortic aneurysm. Reviewed, Interpreted and Dictated by Marco Herrera III, MD Transcribed by Heather Hamilton Authenticated and [facility]
== END ==
PROVIDERS: PCP Family Medicine; Visit Provider Family Medicine
DX: R10.13 Epigastric pain (principal)
CPT/HCPCS: 76705

== ENCOUNTER → 2022-06-29 08:14 | Outpatient (CLI) | payer MEDICARE, SELFPAY ==
--- NOTE | 2022-06-29 08:20 | US_ITS ---
FINAL REPORT CLINICAL HISTORY: PAIN FINDINGS: Sonographic images of the right upper quadrant were obtained. The pancreas is partially obscured. The liver has increased echogenicity consistent with fatty infiltration. The gallbladder appears normal without evidence of gallstones.There is no evidence of biliary ductal dilatation.The common duct measures 2 mm. Limited images of the right kidney are unremarkable. There is a small to moderate amount of ascites. IMPRESSION: Fatty liver. Small to moderate amount of ascites. Reviewed, Interpreted and Dictated by Marco Herrera III, MD Transcribed by Heather Hamilton Authenticated and [facility]
== END ==
PROVIDERS: PCP Family Medicine; Visit Provider Family Medicine
DX: R10.11 Right upper quadrant pain (principal)
CPT/HCPCS: 76705

== ENCOUNTER → 2022-07-07 10:47 | Outpatient (CLI) | payer MEDICARE, SELFPAY ==
--- NOTE | 2022-07-07 10:51 | CT_ITS ---
FINAL REPORT TECHNIQUE: Noncontrast CT exam of the abdomen and pelvis. This study was performed with techniques to keep radiation doses as low as reasonably achievable (ALARA). Individualized dose reduction techniques using automated exposure control or adjustment of mA and/or kV according to the patient''s size were employed. CLINICAL HISTORY: ABD PAIN COMPARISON: 08/03/2020 FINDINGS: Abdomen: There is a left lower lobe nodule measuring 16 mm, unchanged from prior. There is moderate hiatal hernia, significantly enlarged from prior. The gallbladder is present. There is mild splenomegaly. Liver, pancreas and adrenal glands have a normal CT appearance in their limited unenhanced state. There is moderate diffuse ascites of uncertain etiology. There is suggestion of omental nodularity raising question of underlying malignancy. The kidneys show no stone disease or obstruction. No obvious renal mass is present. No ureteral stones are present. Pelvis: There is distended small bowel suggesting partial obstruction although etiology of obstruction is not readily evident, ischemia is not excluded. There is a moderate amount fluid in the pelvis. There is fluid-filled mildly distended jejunum. Note is made of mild fecal impaction of the colon. Uterus is obstructed by free fluid. No distal ureteral stones are seen. Bladder is unremarkable. No adenopathy is seen. IMPRESSION: Distended fluid-filled small bowel, favor partial obstruction although ileus/ischemia could have a similar appearance. Moderate ascites with subtle omental nodularity, metastatic disease is not excluded. Follow-up CT with IV and oral contrast can better assess obstruction and potential malignancy. Reviewed, Interpreted and Dictated by Fanta Porter MD Transcribed by Carole Larios Authenticated and . [facility]
== END ==
PROVIDERS: PCP Family Medicine; Visit Provider Family Medicine
DX: R10.9 Unspecified abdominal pain (principal)
CPT/HCPCS: 74176

== ENCOUNTER 2022-07-24 09:57 | Observation (INO) | payer MEDICARE, SELFPAY ==
[2022-07-24] VITALS (22 sets, daily range): BP systolic 94–147; BP diastolic 47–85; PULSE 57–76; RESP 18–20; TEMP 36.4–36.8; O2SAT 93–100; BMI 30.9; BMI 31.2
--- NOTE | 2022-07-24 10:08 | CT_ITS ---
FINAL REPORT TECHNIQUE: Thin section axial images were obtained through the abdomen after intravenous contrast. Reconstruction images were obtained from the axial data. Exam was performed using dose reduction techniques. CLINICAL HISTORY: abdominal pain, new diagnosis of malignancy, vomit COMPARISON: 07/07/2022, 08/03/2020 FINDINGS: There is a stable 17 mm left lower lobe pulmonary nodule. The liver is fatty infiltrated without focal hepatic lesion. There is sludge or stones small stones in the gallbladder. The spleen, adrenal glands, and pancreas are without acute abnormality. The kidneys demonstrate no stones, mass, or hydronephrosis. A stable moderate hiatal hernia is seen. Proximal small bowel loops are decompressed. Again seen is distension of the more distal small bowel loops. There is a stable amount of abdominal ascites as described on the noncontrast exam from 07/07/2022. There is subtle nodularity to the omentum reason concern for peritoneal metastases. The uterus is either small or the patient has had partial hysterectomy. The ovaries are not well visualized. There is a mass in the right lower quadrant. A separate appendix is not identified. This is well seen on axial images 62-72. This lies along the inferior cecum and appears to contain some calcifications. This could be arising from the cecal wall or appendix, (separate appendix not identified), or may be a peritoneal metastasis. There is diverticulosis of the colon with no evidence of diverticulitis. No pelvic lymphadenopathy is seen. There are no acute osseous abnormalities. There is increased density to the entire T9 vertebral body. This is present on study from August 2020 and could be a large hemangioma. No additional bony lesions are seen. IMPRESSION: Stable left lower lobe pulmonary nodules. Metastasis is not excluded. Findings concerning for peritoneal metastases. Right lower quadrant cystic mass, organ origin unclear could be GI tract in origin, ovarian is not entirely excluded. Could also be a peritoneal metastasis. Persistent small bowel dilatation. Partial obstruction is not excluded. Stable ascites. Reviewed, Interpreted and Dictated by Mel Hopper MD Transcribed by Nidia Bhatia Authenticated and [facility]
--- NOTE | 2022-07-24 10:12 | PC.NURSE ---
spoke with dr thomas who states her concern for sending pt to ed was r/o sbo. dr thomas states she read a CT from 07/[address] littlejohn that suggested concern for sbo. in the office today pt reported to her she has been having abd pain x4 weeks and vomiting.
[2022-07-24 10:37] LABS: Basophils # 0.1 K/mm3 (0-0.2); Basophils % 0.8 % (0.1-2.0); Eosinophils # 0.1 K/mm3 (0.0-0.4); Eosinophils % 1.2 % (0.1-12.0); Hematocrit 40.1 % (37.0-47.0); Hemoglobin 13.3 g/dL (12.2-16.2); Lymphocytes # 0.8 K/mm3 (0.7-4.5); Mean Corpuscular HGB Conc 33.2 g/dL (31.8-35.4); Mean Corpuscular Hemoglobin 26.6 pg (27.0-31.2); Mean Corpuscular Volume 80.3 fl (81-99); Mean Platelet Volume 9.7 fl (7.4-10.4); Monocytes # 0.4 K/mm3 (0.1-1.0); Neutrophils # 4.9 K/mm3 (1.8-7.8); Platelet Count 267 K/mm3 (142-424); Red Cell Distribution Width 14.6 % (11.5-17.5); White Blood Count 6.1 K/mm3 (4.8-10.8)
[2022-07-24 10:41] LABS: Chloride 107 mmol/L (98-107); Potassium 4.4 mmoL/L (3.5-5.1); Sodium 139 mmol/L (136-145)
[2022-07-24 10:43] LABS: Alanine Aminotransferase 12 U/L (12-78); Alkaline Phosphatase 74 U/L (38-126); Anion Gap 11.4 mEq/L (5-15); Aspartate Amino Transferase 25 U/L (14-36); Bilirubin,Total 0.8 mg/dl (0.2-1.3); Blood Urea Nitrogen 16 mg/dl (7-17); Carbon Dioxide 25 mmol/L (22.0-30.0); Creatinine Clearance Estimated 65 mL/min (50-200); Estimated Glomerular Filt Rate 71 ml/min (>60); GFR (African American) 86 ML/MIN (>60); Lactic Acid 1.6 mmol/L (0.7-2.1)
[2022-07-24 10:44] LABS: Albumin Level 3.9 g/dl (3.5-5.0); Albumin/Globulin Ratio 1.2 (1.1-1.8); Calcium 8.9 mg/dl (8.4-10.2); Globulin 3.2 g/dL (1.3-3.2); Glucose 130 mg/dl (74-100); Lipase 28 U/L (23-300); Total Protein,Serum 7.1 g/dl (6.3-8.2)
[2022-07-24 10:46] LABS: Activated Partial Thrombo Time 26.6 seconds (22.8-30.6); INR 0.96 (0.9-1.1); Prothrombin Time 10.4 seconds (10.1-12.5)
[2022-07-24 10:50] LABS: Ethyl Alcohol < 10 mg/dl (0-10)
--- NOTE | 2022-07-24 10:58 | PC.NURSE ---
Rounded on patient, she is lying on ED stretcher and reports her pain is much better. No other needs at this time
--- NOTE | 2022-07-24 11:12 | PC.NURSE ---
pt to CT via wc with histotechnician
--- NOTE | 2022-07-24 11:22 | HMH.EDGENADL ---
Discharge Plan Disposition Patient Disposition: Admitted As Inpatient Condition: Good Clinical Impressions Clinical Impression: Intraabdominal mass, Peritoneal carcinomatosis, Partial small bowel obstruction, Multiple pulmonary nodules Abdominal ascites Qualifiers: Ascites type: malignant Qualified Code(s): R18.0 - Malignant ascites Discharge ED Provider: Ana Shah General Adult HPI General Chief complaint: Abdominal Pain Stated complaint: constipation,pain Time Seen by Provider: 07/24/22 10:00 Mode of Arrival: Ambulatory Source of Information: Patient Limitations: No Limitations Description of Symptoms (Recalled from ER Triage Doc. by RN): PT STATES SHE HAS HAD ABDOMINAL PAIN SINCE THE BEGINNING OF JUNE, SHE STATES SHE WAS DIAGNOSED WITH DIVERTICULITIS, REPORTS NAUSEA AND VOMITING, STATES PAIN IS EVERYWHERE AND DESCRIPTION CHANGES DAILY, TODAY SHE EXPLAIN IT MOSTLY IN HER RIGHT SIDE AND A DULL, ACHING PAIN, SHE REPORTS WEIGHT LOSS AND STATES SHE CAN'T EAT, ALSO REPORTS DIARRHEA, STATES SHE HASN'T HAD A BM IN 3 DAYS, REPORTS PASSING FLATUS, DENIES BLOOD IN STOOL, REPORTS HEARTBURN, SENT OVER FROM DR YAN'S OFFICE, PER HIM PT HAD CT SCAN ON THE AND WAS DIAGNOSED WITH SMALL BOWEL OBSTRUCTION THAT SHE WAS NEVER CALLED ABOUT AND DIAGNOSED WITH CANCER TODAY History of Present Illness HPI narrative: This patient is a 66-year-old female sent over from hematology/oncology, where she was being evaluated with concern for new metastatic disease, for evaluation of abdominal pain, nausea, and vomiting. She also states that she has had unintentional weight loss and significant abdominal bloating. She is not able to eat or drink. She states that she has been having significant heartburn as well. She has been taking Linzess in order to have bowel movements, she states that she is only able to pass straight water. She denies having any significant relieving bowel movements. She states she is vomiting every few days. Her last bowel movement was 3 days ago. She denies any blood in her stools or dark tarry stools. She is still passing gas. Nothing seems to make her symptoms better or worse. This started at the beginning of June, and she believes that it started with an episode of diverticulitis. She states that she had a CT scan done at that time, but she was never told anything. She had a CT scan done on 07/07/2022, which Dr. Yan reports is concerning for small bowel obstruction. Given this, that is why they sent her over today. Related Data Home Medications Medication Instructions Recorded Confirmed alprazolam 0.5 mg tablet 0.5 mg PO TID Anxiety 09/30/20 07/24/22 metoprolol succinate 50 mg 50 mg PO DAILY Hypertension 09/30/20 07/24/22 tablet,extended release 24 hr metformin 500 mg tablet 500 mg PO DAILY Diabetes 11/24/20 07/24/22 sertraline 100 mg tablet 100 mg PO DAILY Depression 11/24/20 07/24/22 naproxen 500 mg tablet 500 mg PO BID Pain 10/10/21 07/24/22 cholecalciferol (vitamin D3) 1,250 50,000 unit PO QWEEK Supplement 07/24/22 07/24/22 mcg (50,000 unit) capsule fentanyl 25 mcg/hr transdermal 1 patch transdermal Q48H Pain 07/24/22 07/24/22 patch glimepiride 2 mg tablet 2 mg PO DAILY Diabetes 07/24/22 07/24/22 levothyroxine 175 mcg tablet 175 mcg PO DAILY HYPOTHYROID 07/24/22 07/24/22 linaclotide 145 mcg capsule 145 mcg PO DAILY BOWEL ISSUES 07/24/22 07/24/22 (Linzess) omeprazole 40 mg capsule,delayed 40 mg PO DAILY GERD 07/24/22 07/24/22 release oxycodone-acetaminophen 5 mg-325 1 tab PO ONCE Pain 07/24/22 07/24/22 mg tablet pregabalin 75 mg capsule 75 mg PO DAILY Pain 07/24/22 07/24/22 Allergies Allergy/AdvReac Type Severity Reaction Status Date / Time No Known Allergies Allergy Verified 07/24/22 09:19 [facility] Disclaimer: The information contained in this section may have been updated after the patient was seen, as this information can be updated by other users. Medical History (Revi
[2022-07-24 11:41] LABS: Microscopic, Urine URINE MICROSCOPIC (MICROSCOPIC)
[2022-07-24 11:42] LABS: Appearance,Urine SL CLOUDY (Clear); Blood, Urine Negative (Negative); Color,Urine YELLOW (Yellow); Glucose,Urine (UA) Negative (Negative); Ketones,Urine TRACE (Negative); Leukocyte Esterase,Urine Negative (Negative); Nitrate,Urine Negative (Negative); Protein,Urine TRACE (Negative); Specific Gravity, Urine >= 1.030 (1.005-1.030)
[2022-07-24 11:45] LABS: Bilirubin,Urine 1+ (Negative)
[2022-07-24 11:56] LABS: Bacteria,Urine Trace /lpf; Calcium Oxalate Crystals,Urine 3+ /lpf; Squamous Epithelial Cell,Urine Occasional #/hpf (0-5)
[2022-07-24 11:57] LABS: Coronavirus 19, PCR Not Detected (NotDetected); Influenza A, PCR Not Detected (NotDetected); Influenza B, PCR Not Detected (NotDetected)
--- NOTE | 2022-07-24 13:32 | PC.NURSE ---
Consulting Dr. Patterson, waiting for call back to ER
--- NOTE | 2022-07-24 13:55 | PC.NURSE ---
ESTELLA JIMENEZ speaking with Dr. Patterson at this time
--- NOTE | 2022-07-24 14:05 | PC.NURSE ---
Consulting [facility]s
--- NOTE | 2022-07-24 14:48 | PC.NURSE ---
DR DIETRICH IS TALKING TO [facility] AT THIS TIME.
--- NOTE | 2022-07-24 14:55 | PC.NURSE ---
FACESHEET FAXED TO [facility].
--- NOTE | 2022-07-24 15:54 | PC.NURSE ---
DELORES SAVAGE AT BEDSIDE TALKING WITH PT.
--- NOTE | 2022-07-24 16:00 | PC.NURSE ---
ESTELLA JIMENEZ speaking with Dr. Molina
--- NOTE | 2022-07-24 16:04 | PC.NURSE ---
CALLED [facility] AND SPOKE WITH EILEEN ABOUT ADMISSION.
--- NOTE | 2022-07-24 16:47 | PC.NURSE ---
Called report to Génesis Damon RN.
--- NOTE | 2022-07-24 16:58 | PC.NURSE ---
arrived by wheelchair to [id number] from ED
--- NOTE | 2022-07-24 19:55 | EXP.HP ---
History of Present Illness *Admission Date: 07/24/22 *Reason for visit:: Abdominal distention and pain *History of present illness: This 66-year-old white female with a history of breast cancer (July 2007) and history of thyroid cancer and partial thyroidectomy (2020) was admitted today through the emergency room. She was seen today by Dr. Albert hematology oncology, on referral from Dr. Molina her primary care physician. The patient has been experiencing abdominal pain and distention since early June. An ultrasound on June 29 showed ascites. Subsequently a CT scan on July 07, 2022 showed a partial small bowel obstruction versus an ileus. It was suggested that omental nodularity seen on the scan was of concern for metastatic disease. With this report she was scheduled to see hematology oncology. She was seen today by Dr. Albert who sent her to the emergency room for possible transfer to [facility] for surgical oncology evaluation. Dr. Patterson was consulted. He reviewed her studies and concurred with need for transfer to [facility]. [facility] has accepted her on transfer but has no beds at the present time. Clinically the patient has had abdominal distention watery bowel movements over the past several weeks. She has been seen in Dr. Molina's office and treated for pain and for constipation. Recently she has been treated with a fentanyl patch which is given significant relief pending her evaluation by oncology. There is also concern on the CT for possible bony involvement of the spine but this may correlate with past images that were deemed to be hemangiomatous in nature. Also on the CT obtained today 07/24/2022 there was a comment about a right lower quadrant cystic mass. There is concerned that this could also be related to metastatic peritoneal disease. It should be mentioned however that in 2016 she suffered a ruptured appendix. She states that she was treated by Dr. Patterson at that time. The patient has been cared for by Dr. Grijalva for bunionectomy and for Charcot joint of the foot. Those notes are in her record. [facility] Disclaimer: The information contained in this section may have been updated after the patient was seen, as this information can be updated by other users. Medical History (Updated 07/24/22 @ 20:17 by Fanta Molina MD) Anxiety Cancer Diabetes mellitus History of breast cancer History of hypertension Surgical History H/O bilateral mastectomy History of appendectomy Family History Other Coronary artery disease Hypertension Stroke Social History (Updated 07/24/22 @ 17:35 by Génesis Damon, JULIETA) Smoking Status: Current every day smoker alcohol intake: never current occupational status: other Travel in the last 8 weeks: None Review of Systems Review of Systems Review of systems:: pertinent systems reviewed and negative unless documented below Constitutional Constitutional: Reports body ache(s), Reports difficulty sleeping, Denies fever(s), Denies frequent falls, Reports lethargy, Reports malaise and Reports weight loss Eyes Eyes: Reports system reviewed and no additional complaints, except as documented and Denies loss of vision ENT Ears, Nose, Mouth, and Throat: Denies disequilibrium, Denies dizziness, Denies dysphagia, Reports mouth lesions (Past history of a lip lesion, excised), Denies sore throat and Denies tongue swelling *Cardiovascular Cardiovascular: Reports system reviewed and no additional complaints, except as documented, Denies chest pain with activity, Denies dyspnea on exertion and Denies irregular heart rhythm *Respiratory Respiratory: Denies dyspnea on exertion *Gastrointestinal Gastrointestinal: Reports abdominal pain, Reports belching, Reports bloating, Reports change in bowel habits (Usually loose stool), Reports change in stool charact
--- NOTE | 2022-07-25 02:04 | PC.NURSE ---
Pt is resting in bed at this time, has been A/Ox 4. Resp even and non labored this morning lungs diminished. Pt has had one PRN dose of pain medication. Reports it did relieve back pain. Pt has had visitors this shift. Waiting on a bed at for a surgical Oncology eval. No updates on a bed this shift. Pt has ambulated to the restroom, tolerated well. Abdomen is firm and large, bowel sounds hypoactive. Pt has not reported any Diarrhea this shift. IV is patent. Educated pt on pain medications and Plan of care. Bed locked in low position, side rails up x 2, encouraged pt to report any needs.
[2022-07-25 04:00] VITALS: BP 136/66; PULSE 64; RESP 18; TEMP 36.8; O2SAT 99; BMI 31.1
[2022-07-25 06:49] LABS: Basophils % 0.3 % (0.1-2.0); Eosinophils # 0.1 K/mm3 (0.0-0.4); Eosinophils % 1.7 % (0.1-12.0); Hematocrit 36.9 % (37.0-47.0); Hemoglobin 12.1 g/dL (12.2-16.2); Lymphocytes # 0.7 K/mm3 (0.7-4.5); Lymphocytes % 21.9 % (10-50); Mean Corpuscular HGB Conc 32.8 g/dL (31.8-35.4); Mean Corpuscular Hemoglobin 26.3 pg (27.0-31.2); Mean Corpuscular Volume 80.2 fl (81-99); Mean Platelet Volume 9.6 fl (7.4-10.4); Monocytes # 0.2 K/mm3 (0.1-1.0); Neutrophils # 2.2 K/mm3 (1.8-7.8); Neutrophils % 69.1 % (37.0-80.0); Platelet Count 185 K/mm3 (142-424); Red Blood Count 4.61 M/mm3 (4.20-5.40); Red Cell Distribution Width 14.7 % (11.5-17.5); White Blood Count 3.2 K/mm3 (4.8-10.8)
[2022-07-25 06:56] LABS: Blood Urea Nitrogen 11 mg/dl (7-17); Calcium 8.5 mg/dl (8.4-10.2); Carbon Dioxide 28 mmol/L (22.0-30.0); Chloride 105 mmol/L (98-107); Creatinine Clearance Estimated 67 mL/min (50-200); Estimated Glomerular Filt Rate 71 ml/min (>60); GFR (African American) 86 ML/MIN (>60); Glucose 92 mg/dl (74-100); Sodium 138 mmol/L (136-145)
--- NOTE | 2022-07-25 07:43 | EXP.PN ---
Subjective *Date: 07/25/22 *Time: 07:43 Interval history: Patient states she has been sleeping well. She wants to sleep more. She has some abdominal pain relieved with meds. She denies any nausea. She may try the clear liquids. Exam Data for Last 24 hours Vital signs and Labs for Last 24 Hours: Temp Pulse Resp BP Pulse Ox 98.3 F 64 18 136/66 99 07/25/22 04:00 07/25/22 04:00 07/25/22 04:00 07/25/22 04:00 07/25/22 04:00 Laboratory Results - last 24 hr 07/24/22 10:15: WBC 6.1, RBC 5.00, Hgb 13.3, Hct 40.1, MCV 80.3 L, MCH 26.6 L, MCHC 33.2, RDW 14.6, Plt Count 267, MPV 9.7, Neut % (Auto) 79.0, Lymph % (Auto) 13.0, [place]ison % (Auto) 6.0, Eos % (Auto) 1.2, Baso % (Auto) 0.8, Neut # (Auto) 4.9, Lymph # (Auto) 0.8, Addison # (Auto) 0.4, Eos # (Auto) 0.1, Baso # (Auto) 0.1 07/24/22 10:15: PT 10.4, INR 0.96, APTT 26.6 07/24/22 10:15: Sodium 139, Potassium 4.4, Chloride 107, Carbon Dioxide 25, Anion Gap 11.4, BUN 16, Creatinine 0.80, Estimated Creat Clear 65, Estimated GFR 71, Est GFR ( Amer) 86, Glucose 130 H, Calcium 8.9, Total Bilirubin 0.8, AST 25, ALT 12, Alkaline Phosphatase 74, Total Protein 7.1, Albumin 3.9, Globulin 3.2, Albumin/Globulin Ratio 1.2, Lipase 28 07/24/22 10:15: Lactate 1.6 07/24/22 10:15: Plasma/Serum Alcohol < 10 07/24/22 10:15: SARS-CoV-2 (PCR) Not detected, Influenza A Untype (PCR) Not detected, Influenza Type B (PCR) Not detected 07/24/22 11:37: Urine Color Yellow, Urine Appearance Sl cloudy, Urine pH 5.0, Ur Specific [place] >= 1.030, Urine Protein Trace, Urine Glucose (UA) Negative, Urine Ketones Trace, Urine Blood Negative, Urine Nitrate Negative, Urine Bilirubin 1+ A, Urine Urobilinogen 1.0, Ur Leukocyte Esterase Negative, Urine RBC None, Urine WBC None, Ur Squamous Epith Cells Occasional, Calcium Oxalate Crystal 3+, Urine Bacteria Trace 07/25/22 06:34: WBC 3.2 L D, RBC 4.61, Hgb 12.1 L, Hct 36.9 L, MCV 80.2 L, MCH 26.3 L, MCHC 32.8, RDW 14.7, Plt Count 185 D, MPV 9.6, Neut % (Auto) 69.1, Lymph % (Auto) 21.9, Addison % (Auto) 7.0, Eos % (Auto) 1.7, Baso % (Auto) 0.3, Neut # (Auto) 2.2, Lymph # (Auto) 0.7, Addison # (Auto) 0.2, Eos # (Auto) 0.1, Baso # (Auto) 0.0 07/25/22 06:34: Sodium 138, Potassium 4.0, Chloride 105, Carbon Dioxide 28, Anion Gap 9.0, BUN 11 D, Creatinine 0.80, Estimated Creat Clear 67, Estimated GFR 71, Est GFR ( Amer) 86, Glucose 92 D, Calcium 8.5 I & O for Last 24 hours: Intake & Output 07/22/22 07/23/22 07/24/22 07/25/22 11:59 11:59 11:59 11:59 Intake Total 840 / 840 Output Total 0 / 0 Balance 840 / 840 Weight 169 lb 173 lb 15.115 oz Constitutional Constitutional: no acute distress Comments: Awakened for exam. She acts comfortable. *Routine Respiratory Exam Respiratory: Present CTA bilaterally *Routine Cardiovascular Exam Cardiovascular: Present RRR *Routine Abdominal Exam Abdominal: Present normoactive bowel sounds and distended *Routine Extremities Exam Extremities: Absent edema or calf tenderness *Routine Neurological Exam Neurological: Present alert and oriented X3 Assessment and Plan *Assessment and plan (1) Abdominal pain: Status: Acute Category: Medical Code(s): R10.9 - Unspecified abdominal pain (2) Abdominal ascites: Status: Acute Qualifiers: Ascites type: malignant Qualified Code(s): R18.0 - Malignant ascites Category: Medical Code(s): R18.8 - Other ascites (3) Peritoneal carcinomatosis: Status: Acute Category: Medical Code(s): C78.6 - Secondary malignant neoplasm of retroperitoneum and peritoneum (4) Partial small bowel obstruction: Status: Acute Category: Medical Code(s): K56.600 - Partial intestinal obstruction, unspecified as to cause (5) History of bunionectomy of left great toe: Status: Acute Category: Surgical Code(s): Z98.890 - Other specified postprocedural states (6) History of breast cancer: Status: Acute
[2022-07-25 08:00] VITALS: BP 119/62; PULSE 66; RESP 16; TEMP 36.3; O2SAT 98
--- NOTE | 2022-07-25 08:00 | HMH.PHAINT1 ---
Pharmacy Intervention Comments: MEDICATION RECONCILIATION COMPLETED ON PATIENT USING EXTERNAL FILL HISTORY FROM PHARMACY, [facility] REPORT, AND LIST FROM [facility] OFFICE. -JESUS MANUEL BELLD
--- NOTE | 2022-07-25 09:00 | PC.NURSE ---
Dr Molina ordered a dulcolax suppository, pt refused at this time stating that she doesn't feel like she needs to have a bm and doesn't feel constipated; She requests to hold off for now but says she will let me know if she changes her mind; She also refused her zoloft saying that she hasn't taken it in a long time, doesn't feel as though she needs it, and doesn't want to start taking it now;
--- NOTE | 2022-07-25 09:35 | PC.NURSE ---
[facility] called for update, stated they don't have any beds available at this time but will continue to call daily to get updates until one becomes available
--- NOTE | 2022-07-25 14:26 | PC.NURSE ---
Pt has requested the dulcolax suppository that was ordered this am. Dulcolax suppository administered.
--- NOTE | 2022-07-25 15:00 | EXP.SURG.CON ---
History of Present Illness *Admission Date: 07/24/22 *Reason for visit:: Paracentesis *History of present illness: This 66-year-old white female with a history of breast cancer in 2005 at which time she states she was recommended chemotherapy and radiation which she declined. She also has a history of thyroid cancer and partial thyroidectomy (2020). She was admitted yesterday through the emergency room. She was seen yesterday by Dr. Albert hematology oncology, on referral from Dr. Molina her primary care physician. The patient has been experiencing abdominal pain and distention for quite some time but much worse since early June. An ultrasound on June [address] scan on July 07, 2022 revealed distended fluid-filled small bowel which is felt to favor partial obstruction although ileus/ischemia could have similar appearance. Moderate ascites with subtle omental nodularity, metastatic disease is not excluded. With this report she was scheduled to see hematology oncology. She was seen yesterday by Dr. Albert who sent her to the emergency room. She was evaluated in the emergency department. I was contacted by the ER physician. After review of her studies with imaging findings consistent with probable malignant ascites with omental caking and findings of possible bony involvement it was felt that she would need to be served in a tertiary facility with medical oncology, surgical oncology and gynecology oncology. [facility] accepted her in transfer but has no beds at the present time. Patient was therefore admitted at this facility. I had previously seen the patient for perforated abscessed appendicitis. She presented with established peritonitis and retroperitoneal abscess consistent with perforated appendicitis and underwent laparoscopic drainage of abscess with placement of close suction drain April 2016. It appeared that the appendix was completely obliterated. Her cecum was actually in the right upper quadrant where her retroperitoneal abscess was located from presumed appendix. Plan was for follow-up CT scan imaging to ensure complete evacuation of abscess with planned ultimate colonoscopy. Patient was followed in the office for some time regularly postoperatively. Discussion was held with her for possible interval appendectomy and she wished to not pursue this. I also strongly advocated for colonoscopy on multiple occassions with the patient to evaluate any other pathology at the site of the appendix such as neoplasm. She never proceeded through with a colonoscopy. While awaiting transfer to [facility] surgery was consulted for possible paracentesis for cytology for diagnosis. [facility] Disclaimer: The information contained in this section may have been updated after the patient was seen, as this information can be updated by other users. Medical History (Updated 07/24/22 @ 20:17 by Fanta Molina MD) Anxiety Cancer Diabetes mellitus History of breast cancer History of hypertension Surgical History H/O bilateral mastectomy History of appendectomy Family History Other Coronary artery disease Hypertension Stroke Social History (Updated 07/24/22 @ 17:35 by Génesis Damon RN) Smoking Status: Current every day smoker alcohol intake: never current occupational status: other Travel in the last 8 weeks: None Review of Systems Constitutional Constitutional: Denies frequent falls Eyes Eyes: Denies loss of vision ENT Ears, Nose, Mouth, and Throat: Denies disequilibrium and Denies dizziness *Neurologic Neurologic: Denies behavioral changes, Denies disequilibrium, Denies dizziness, Denies frequent falls, Denies lack of coordination, Denies loss of vision and Denies seizure-like activity Psychiatric Psychiatric: Denies behavioral changes Meds Home Medicatio
[2022-07-25 15:22] VITALS: BP 140/58; PULSE 64; RESP 16; TEMP 36.9; O2SAT 96
--- NOTE | 2022-07-25 17:24 | PC.NURSE ---
Pt is alert and oriented x4. She ambulates independently to the bathroom and tolerates well. Abdomen is large, round and distended. She reports passing flatus. She also reports having a bm this shift after administration of suppository. She is tolerating clear liquid diet. No other complaints at this time. Bed is locked and in the lowest position, call light is within reach.
[2022-07-25 18:21] LABS: Chloride 107 mmol/L (98-107); Potassium 4.1 mmoL/L (3.5-5.1); Sodium 137 mmol/L (136-145)
[2022-07-25 18:24] LABS: Alanine Aminotransferase 10 U/L (12-78); Albumin Level 3.5 g/dl (3.5-5.0); Albumin/Globulin Ratio 1.3 (1.1-1.8); Alkaline Phosphatase 84 U/L (38-126); Anion Gap 10.1 mEq/L (5-15); Aspartate Amino Transferase 18 U/L (14-36); Bilirubin,Total 0.6 mg/dl (0.2-1.3); Blood Urea Nitrogen 9 mg/dl (7-17); Calcium 8.4 mg/dl (8.4-10.2); Carbon Dioxide 24 mmol/L (22.0-30.0); Creatinine Clearance Estimated 67 mL/min (50-200); Estimated Glomerular Filt Rate 83 ml/min (>60); GFR (African American) 101 ML/MIN (>60); Globulin 2.6 g/dL (1.3-3.2); Glucose 104 mg/dl (74-100); Total Protein,Serum 6.1 g/dl (6.3-8.2)
[2022-07-25 18:55] LABS: Lactate Dehydrogenase 115 U/L (313-618)
[2022-07-25 20:00] VITALS: BP 113/58; PULSE 61; RESP 20; TEMP 36.5; O2SAT 96
--- NOTE | 2022-07-26 01:56 | PC.NURSE ---
Pt has been A/O X 4 this shift. Had a shower, also had a BM. Pt has been NPO since Midnight. Pt will have Paracentesis this AM. Has had pain medication one time this shift. Resting well at this time. Pt has been educated on Plan of care and medications. Encouraged to report any needs. Bed locked in low position, side rails up x 2, call light in reach.
[2022-07-26 04:00] VITALS: BP 125/56; PULSE 65; RESP 17; TEMP 36.7; O2SAT 97; BMI 30.6
[2022-07-26 07:21] VITALS: BP 119/67; PULSE 66; RESP 18; TEMP 36.9; O2SAT 98
--- NOTE | 2022-07-26 07:58 | EXP.PN ---
Subjective *Date: 07/26/22 *Time: 07:58 Interval history: Patient states she is having a paracentesis today. Mostly her pain medicine is very helpful for her abdominal pain. She denies chest pain and shortness of breath. She had clear liquids yesterday with a good p.o. intake. She did have a suppository with small results. She is passing flatus. She does ambulate to the bathroom without difficulty. Exam Data for Last 24 hours Vital signs and Labs for Last 24 Hours: Temp Pulse Resp BP Pulse Ox 98.5 F 66 18 119/67 98 07/26/22 07:21 07/26/22 07:21 07/26/22 07:21 07/26/22 07:21 07/26/22 07:21 Laboratory Results - last 24 hr 07/25/22 17:53: Sodium 137, Potassium 4.1, Chloride 107, Carbon Dioxide 24, Anion Gap 10.1, BUN 9, Creatinine 0.70, Estimated Creat Clear 67, Estimated GFR 83, Est GFR ( Amer) 101, Glucose 104 H, Calcium 8.4, Total Bilirubin 0.6, AST 18 D, ALT 10 L, Alkaline Phosphatase 84, Lactate Dehydrogenase 115 L, Total Protein 6.1 L, Albumin 3.5 D, Globulin 2.6, Albumin/Globulin Ratio 1.3 I & O for Last 24 hours: Intake & Output 07/23/22 07/24/22 07/25/22 07/26/22 11:59 11:59 11:59 11:59 Intake Total 1080 / 1080 1080 / 1080 Output Total 0 / 0 0 / 0 Balance 1080 / 1080 1080 / 1080 Weight 169 lb 173 lb 15.115 oz 170 lb 9.6 oz Constitutional Constitutional: no acute distress *Routine Respiratory Exam Respiratory: Present CTA bilaterally (Anteriorly and posteriorly) *Routine Cardiovascular Exam Cardiovascular: Present RRR *Routine Abdominal Exam Abdominal: Present soft, normoactive bowel sounds, tenderness and distended (Girth is greater today.) *Routine Extremities Exam Extremities: Absent edema or calf tenderness *Routine Neurological Exam Neurological: Present alert and oriented X3 Assessment and Plan *Assessment and plan (1) Abdominal ascites: Status: Acute Qualifiers: Ascites type: malignant Qualified Code(s): R18.0 - Malignant ascites Category: Medical Code(s): R18.8 - Other ascites (2) History of breast cancer: Status: Acute Category: Medical Code(s): Z85.3 - Personal history of malignant neoplasm of breast (3) Abdominal pain: Status: Acute Category: Medical Code(s): R10.9 - Unspecified abdominal pain (4) Intraabdominal mass: Status: Acute Category: Medical Code(s): R19.00 - Intra-abdominal and pelvic swelling, mass and lump, unspecified site (5) Peritoneal carcinomatosis: Status: Acute Category: Medical Code(s): C78.6 - Secondary malignant neoplasm of retroperitoneum and peritoneum (6) Partial small bowel obstruction: Status: Acute Category: Medical Code(s): K56.600 - Partial intestinal obstruction, unspecified as to cause (7) Multiple pulmonary nodules: Status: Acute Category: Medical Code(s): R91.8 - Other nonspecific abnormal finding of lung field Plan Narrative as per Dr. Patterson yesterday 07/25/2022. Patient does have moderate amount of ascites. However, she also has some chronic diffuse bowel distention from partial obstruction. Given the potential for viscus injury as it is impossible to discern fluid from bowel blindly I feel that she would best be served with radiologic guided paracentesis. I will see if this can be set up for tomorrow morning for diagnostic and therapeutic paracentesis. Continue with pain management. Continues to await bed at .
--- NOTE | 2022-07-26 08:00 | US_ITS ---
FINAL REPORT CLINICAL HISTORY: ASCITES 2500 ml drained-- mercedez guerra FINDINGS: ULTRASOUND-GUIDED PARACENTESIS HISTORY: Ascites Procedure performed by LANCE Han under the supervision of Dr. Porter. TECHNIQUE: The left lower quadrant abdomen was prepped and routine sterile fashion. Appropriate pocket was localized for drainage. The patient was prepped and draped in routine fashion. Local anesthesia was achieved with 1% lidocaine. Using imaging guidance with images acquired, an 18-gauge sheath needle was directed into the peritoneal fluid. Approximately 2.5 liters of yellow serous fluid was aspirated. A portion of the fluid was sent for laboratory analysis. IMPRESSION: Successful ultrasound guided therapeutic and diagnostic paracentesis Authenticated and ERN
[2022-07-26 10:21] VITALS: BMI 30.4
--- NOTE | 2022-07-26 10:35 | PC.NURSE ---
PT WENT DOWN WITH RADIOLOGY
--- NOTE | 2022-07-26 12:23 | PC.NURSE ---
Addendum entered by Gale Bustillos RN 07/26/22 12:28: spoke with eron regarding pts wanting an advanced diet. per eron, pt can have full liquid diet Original Note: [facility] called, update given.
[2022-07-26 14:22] LABS: Appearance,Body Fld. Normal; Source, Body Fld. Peritoneal Fluid; Volume,Body Fld. 2500 mL
[2022-07-26 14:23] LABS: Mononuclear WBCs,Body Fluid 97 %; Polynuclear WBC,Body Fluid 3 %; RBC,Body Fluid < 10 cells/uL (< 10 X 10^3); TNC,Body Fluid 534 cells/uL (< 1000)
[2022-07-26 15:16] VITALS: BP 126/59; PULSE 63; RESP 17; TEMP 37; O2SAT 95
--- NOTE | 2022-07-26 17:02 | PC.NURSE ---
paracentesis today with 2500ml output according to radiology. pt tolerated it well and states she feels relief. no other changes from previous shift. c/o pain multiple times t/o shift in various places, abd, gunnar sides, back, legs, relieved with prescribed pain meds. c/o nausea x1, treated per aug. pt has no complaints at this time. still waiting for bed at .
[2022-07-27 08:45] LABS: CA 19-9 35 U/mL (0-35); CEA 16.4 ng/mL (0.0-4.7)
--- NOTE | 2022-07-27 11:05 | CARE MANAGER ---
CM called and spoke with patient regarding post discharge status. Patient stated that she is feeling better, no complaints or concerns at time of call. She has scheduled her f/u appt for Sunday with Dr. Molina.
[2022-07-27 13:12] LABS: Albumin, Body Fluid 2.6 g/dL (Not Estab.); Glucose, Body Fluid 99 mg/dL (.); LD, Body Fluid 166 IU/L (.); Protein, Body Fluid 4.2 g/dL (.)
--- NOTE | 2022-07-31 23:03 | EXP.DC.SUM ---
General Admission date:: 07/24/22 Discharge date: 07/26/22 HPI HPI HPI: This 66-year-old white female with a history of breast cancer in 2005 at which time she states she was recommended chemotherapy and radiation which she declined. She also has a history of thyroid cancer and partial thyroidectomy (2020). She was admitted yesterday through the emergency room. She was seen yesterday by Dr. Albert hematology oncology, on referral from Dr. Molina her primary care physician. The patient has been experiencing abdominal pain and distention for quite some time but much worse since early June. An ultrasound on June [address] scan on July 07, 2022 revealed distended fluid-filled small bowel which is felt to favor partial obstruction although ileus/ischemia could have similar appearance. Moderate ascites with subtle omental nodularity, metastatic disease is not excluded. With this report she was scheduled to see hematology oncology. She was seen yesterday by Dr. Albert who sent her to the emergency room. She was evaluated in the emergency department. I was contacted by the ER physician. After review of her studies with imaging findings consistent with probable malignant ascites with omental caking and findings of possible bony involvement it was felt that she would need to be served in a tertiary facility with medical oncology, surgical oncology and gynecology oncology. [facility] accepted her in transfer but has no beds at the present time. Patient was therefore admitted at this facility. I had previously seen the patient for perforated abscessed appendicitis. She presented with established peritonitis and retroperitoneal abscess consistent with perforated appendicitis and underwent laparoscopic drainage of abscess with placement of close suction drain April 2016. It appeared that the appendix was completely obliterated. Her cecum was actually in the right upper quadrant where her retroperitoneal abscess was located from presumed appendix. Plan was for follow-up CT scan imaging to ensure complete evacuation of abscess with planned ultimate colonoscopy. Patient was followed in the office for some time regularly postoperatively. Discussion was held with her for possible interval appendectomy and she wished to not pursue this. I also strongly advocated for colonoscopy on multiple occassions with the patient to evaluate any other pathology at the site of the appendix such as neoplasm. She never proceeded through with a colonoscopy. While awaiting transfer to [facility] surgery was consulted for possible paracentesis for cytology for diagnosis. Hospital Course Hospital Course Hospital Course: The patient was accepted at [facility] for transfer, but there were no beds available. She was therefore admitted to [facility] awaiting transfer. She was started on IV fluids, clear liquids, and IV pain medication. She was seen in consultation by Dr. Patterson and he felt she had a moderate amount of ascites along with chronic diffuse bowel distention from partial obstruction. Given the potential for viscus injury, he felt it was impossible to discern fluid from bowel blindly, therefore she would best be served with radiologic guided paracentesis. She had a suppository with small results and was able to pass flatus. Dr. Patterson was able to arrange paracentesis under fluoroscopy. She had 2500 cc removed by paracentesis and sent for cell pathology. She did feel somewhat better. It was felt she was stable to discharge as she had pain medications at home and she will follow-up at [facility]. Exam Data for Last 24 hours Vital signs and Labs for Last 24 Hours: Temp Pulse Resp BP Pulse Ox 98.6 F 63 17 126/59 L 95 07/26/22 15:16 07/26/22 15:16 07/26/22 15:16 07/26/22 15:16 07/26/22 15:16 Microbiology Reports for the Last 24 Hours: Microbiology 07/26/22 10:45 Ascites Fluid Gr
== END 2022-07-26 18:16 | disposition home or self-care (01) ==
LOC: ER 16:05 → 2ND 16:34
PROVIDERS: Surgery; Admitting Provider Family Medicine; Emergency Provider Emergency Medicine; PCP Family Medicine; Visit Provider Family Medicine
DX: K56.600 Partial intestinal obstruction, unspecified as to cause (principal); R18.0 Malignant ascites; R10.9 Unspecified abdominal pain; C78.6 Secondary malignant neoplasm of retroperitoneum and peritoneum; R19.00 Intra-abdominal and pelvic swelling, mass and lump, unspecified site; Z20.822 Contact with and (suspected) exposure to COVID-19; C50.919 Malignant neoplasm of unspecified site of unspecified female breast; R91.8 Other nonspecific abnormal finding of lung field; E11.9 Type 2 diabetes mellitus without complications; Z79.84 Long term (current) use of oral hypoglycemic drugs; F17.210 Nicotine dependence, cigarettes, uncomplicated; I10 Essential (primary) hypertension
CPT/HCPCS: G0378; 36415; 49083; 74177; 80048; 80053; 81001; 82042; 82378; 82945; 83605; 83615; 83690; 84155; 85025; 85610; 85730; 86316; 87070; 87205; 88112; 89051; 99285; C9803; J2405; Q9967; U0003; U0005

== ENCOUNTER → 2022-08-09 07:46 | Outpatient (CLI) | payer MEDICARE, SELFPAY ==
--- NOTE | 2022-08-09 07:50 | US_ITS ---
FINAL REPORT CLINICAL HISTORY: ASCITES-- FINDINGS: ULTRASOUND-GUIDED PARACENTESIS HISTORY:Ascites ATTENDING PHYSICIAN: Dr. Roy PHYSICIAN HEAD ORTHOPEDIC TEAM PHYSICIAN: Raciel Metzger PA-C FINDINGS: After informed consent was obtained and timeout procedure performed, fluid was localized in the right lower quadrant under ultrasound guidance and marked on the skin appropriately. The patient was then prepped and draped in the usual sterile fashion and the skin was anesthetized with 1% lidocaine. An ultrasound guided paracentesis was then performed using a Turkel needle. Approximately 2.7 liters of fluid was removed. No fluid was sent to lab. The patient tolerated the procedure well and there were no immediate complications. IMPRESSION: Ultrasound guided right lower quadrant paracentesis as discussed above. Films reviewed , interpreted and dictated by Dr. Roy. Transcribed by Raciel Metzger PA-C. Reviewed, Interpreted and Dictated by Meek Roy MD Transcribed by LANCE Han Authenticated and [facility]
== END ==
PROVIDERS: PCP Family Medicine; Visit Provider Internal Medicine Medical Oncology
DX: R18.8 Other ascites (principal); C78.6 Secondary malignant neoplasm of retroperitoneum and peritoneum
CPT/HCPCS: 49083

== ENCOUNTER 2022-08-21 15:28 | Emergency (ER) | payer MEDICARE, SELFPAY ==
[2022-08-21] VITALS (10 sets, daily range): BP systolic 117–156; BP diastolic 57–100; PULSE 73–104; RESP 16–20; TEMP 36.7–36.8; O2SAT 95–99; BMI 29.0
--- NOTE | 2022-08-21 16:00 | PC.NURSE ---
PT up to the bathroom, unable to give urine sample at this time
[2022-08-21 16:12] LABS: Basophils # 0.1 K/mm3 (0-0.2); Basophils % 0.8 % (0.1-2.0); Chloride 107 mmol/L (98-107); Eosinophils # 0.1 K/mm3 (0.0-0.4); Eosinophils % 1.8 % (0.1-12.0); Hematocrit 49.6 % (37.0-47.0); Hemoglobin 16.4 g/dL (12.2-16.2); Lymphocytes # 1.2 K/mm3 (0.7-4.5); Lymphocytes % 15.2 % (10-50); Mean Corpuscular HGB Conc 33.1 g/dL (31.8-35.4); Mean Corpuscular Hemoglobin 26.1 pg (27.0-31.2); Mean Corpuscular Volume 79.1 fl (81-99); Mean Platelet Volume 9.7 fl (7.4-10.4); Monocytes # 0.5 K/mm3 (0.1-1.0); Monocytes % 6.1 % (1.7-9.3); Neutrophils # 5.9 K/mm3 (1.8-7.8); Neutrophils % 76.1 % (37.0-80.0); Platelet Count 405 K/mm3 (142-424); Potassium 4.4 mmoL/L (3.5-5.1); Red Blood Count 6.27 M/mm3 (4.20-5.40); Red Cell Distribution Width 15.2 % (11.5-17.5); Sodium 137 mmol/L (136-145); White Blood Count 7.8 K/mm3 (4.8-10.8)
[2022-08-21 16:15] LABS: Alanine Aminotransferase 19 U/L (12-78); Albumin Level 3.8 g/dl (3.5-5.0); Albumin/Globulin Ratio 1.1 (1.1-1.8); Alkaline Phosphatase 124 U/L (38-126); Anion Gap 14.4 mEq/L (5-15); Aspartate Amino Transferase 29 U/L (14-36); Bilirubin,Total 0.8 mg/dl (0.2-1.3); Blood Urea Nitrogen 12 mg/dl (7-17); Carbon Dioxide 20 mmol/L (22.0-30.0); Creatinine Clearance Estimated 61 mL/min (50-200); Estimated Glomerular Filt Rate 71 ml/min (>60); GFR (African American) 86 ML/MIN (>60); Globulin 3.4 g/dL (1.3-3.2); Total Protein,Serum 7.2 g/dl (6.3-8.2)
[2022-08-21 16:16] LABS: Calcium 8.9 mg/dl (8.4-10.2); Glucose 208 mg/dl (74-100)
--- NOTE | 2022-08-21 16:42 | HMH.EDGENADL ---
Discharge Plan Disposition Chief Complaint: Abdominal Pain Prescriptions Prescriptions: No Action metoprolol succinate 50 mg tablet extended release 24 hr 50 mg PO DAILY alprazolam 0.5 mg tablet 0.5 mg PO DAILYP PRN (Reason: Anxiety) metformin 500 mg tablet 500 mg PO BIDWMEAL sertraline 100 mg tablet 200 mg PO DAILY Rx Instructions: pt states she hasn't taken this in along time naproxen 500 mg tablet 500 mg PO BID fentanyl 25 mcg/hr patch 72 hour 1 patch transdermal Q72H Rx Instructions: pt states she removed the patch at 1000 on 07/24/22 Linzess 145 mcg capsule 145 mcg PO DAILY oxycodone-acetaminophen 5-325 mg tablet 1 tab PO Q6HP PRN (Reason: Moderate Pain (Scale Score 5-6)) glimepiride 2 mg tablet 2 mg PO DAILY omeprazole 40 mg capsule,delayed release(DR/EC) 40 mg PO DAILY pregabalin 75 mg capsule 75 mg PO DAILY levothyroxine 175 mcg tablet 175 mcg PO DAILY cholecalciferol (vitamin D3) 1,250 mcg (50,000 unit) capsule 50,000 unit PO WEEKLY ondansetron HCl 4 mg tablet 4 mg PO Q6HP PRN (Reason: Nausea And Vomiting) Label Comments: TAKE ONE TABLET BY MOUTH EVERY 6 HOURS NEEDED FOR NAUSEA Referrals Follow up/Referrals: Fanta Molina MD [Primary Care Provider] - See instructions Instructions Patient Instructions: DI for Acute Abdominal Pain Discharge ED Provider: Richar Hand General Adult HPI General Chief complaint: Abdominal Pain Stated complaint: abdomina pain Time Seen by Provider: 08/21/22 16:42 Mode of Arrival: EMS Source of Information: Patient Limitations: No Limitations Description of Symptoms (Recalled from ER Triage Doc. by RN): pt to ED with abd. distention and pain accompanied by nausea and vomiting since last night. pt reports a current diagnosis of primary peritoneal carcinomatosis and is being treated at gen. oncology. pt had a paracentesis 2 weeks ago. History of Present Illness HPI narrative: Patient is a 66-year-old female followed at for peritoneal carcinomatosis. Presents with recurrent ascites and abdominal distention abdominal pain. States she has had to have 2 large-volume paracenteses over the last month and her ascites continues to reaccumulate. She states that this time it is more painful than normal and that she is very uncomfortable. Associated with nausea and vomiting. Pain is severe at the moment. No fevers or chills. Does not have a history of SBP that she is aware of. She has follow-up with at the beginning of next week. Related Data Home Medications Medication Instructions Recorded Confirmed alprazolam 0.5 mg tablet 0.5 mg PO DAILYP PRN Anxiety 09/30/20 08/04/22 metoprolol succinate 50 mg 50 mg PO DAILY Hypertension 09/30/20 08/04/22 tablet,extended release 24 hr metformin 500 mg tablet 500 mg PO BIDWMEAL Diabetes 11/24/20 08/04/22 sertraline 100 mg tablet 200 mg PO DAILY Depression 11/24/20 08/04/22 naproxen 500 mg tablet 500 mg PO BID Pain 10/10/21 08/04/22 cholecalciferol (vitamin D3) 1,250 50,000 unit PO WEEKLY Supplement 07/24/22 08/04/22 mcg (50,000 unit) capsule fentanyl 25 mcg/hr transdermal 1 patch transdermal Q72H Pain 07/24/22 08/04/22 patch glimepiride 2 mg tablet 2 mg PO DAILY Diabetes 07/24/22 08/04/22 levothyroxine 175 mcg tablet 175 mcg PO DAILY THYROID 07/24/22 08/04/22 linaclotide 145 mcg capsule 145 mcg PO DAILY CONSTIPATION 07/24/22 08/04/22 (Linzess) omeprazole 40 mg capsule,delayed 40 mg PO DAILY GERD 07/24/22 08/04/22 release oxycodone-acetaminophen 5 mg-325 1 tab PO Q6HP PRN Moderate Pain 07/24/22 08/04/22 mg tablet (Scale Score 5-6) pregabalin 75 mg capsule 75 mg PO DAILY Pain 07/24/22 08/04/22 ondansetron HCl 4 mg tablet 4 mg PO Q6HP PRN Nausea And 07/25/22 08/04/22 Vomiting Allergies Allergy/AdvReac Type Severity Reaction Status Date / Time No Known Allergies Allergy Verified 08/04/22 10:44
--- NOTE | 2022-08-21 17:47 | CT_ITS ---
PROCEDURE INFORMATION: Exam: CT Abdomen And Pelvis With Contrast Exam date and time: 08/21/2022 5:55 PM Age: 66 years old Clinical indication: Abdominal pain; Generalized; Patient HX: Abd distention, C/O pain all over w n/v; Additional info: Diffuse abd pain, n/v distention TECHNIQUE: Imaging protocol: Computed tomography of the abdomen and pelvis with contrast. Radiation optimization: All CT scans at this facility use at least one of these dose optimization techniques: automated exposure control; mA and/or kV adjustment per patient size (includes targeted exams where dose is matched to clinical indication); or iterative reconstruction. Contrast material: ISOVUE; Contrast volume: 75 ml; Contrast route: IV; Other protocol: This patient has received 3 known CTs and 0 known cardiac nuclear medicine studies in the 12 months prior to the current study. COMPARISON: CT ABDOMEN PELVIS W CON 07/24/2022 11:17 AM FINDINGS: Lungs: 17 mm left lower lobe solid pulmonary nodule is unchanged. Diaphragm: Moderate-sized hiatal hernia. Liver: Fatty infiltration of the liver. Gallbladder and bile ducts: Normal. No calcified stones. No ductal dilation. Pancreas: Normal. No ductal dilation. Spleen: Mild splenomegaly with 14 cm spleen is unchanged. Adrenal glands: Normal. No mass. Kidneys and ureters: Normal. No hydronephrosis. Stomach and bowel: Decompressed proximal small bowel loops with dilated distal small bowel loops containing numerous air-fluid levels in a similar configuration of the previous study. Maximum small bowel dimension is 5.3 cm in the left anterior midabdomen previously 4.1 cm in the same region increasing. The point of transition appears to be in the right lower quadrant near the mass at the ileocecal valve level. The colon is mostly decompressed with scattered diverticuli. Mass in the right lower quadrant which appears partly calcified and partly cystic potentially arising from the wall of the cecum measuring approximately 6 cm on series 3, image 70 is similar. Appendix: The appendix is not visualized and is not definitely seen separate from the right lower quadrant mass. Intraperitoneal space: Moderate volume ascites is similar to the comparison CT. Omental nodularity suspicious for peritoneal metastasis is again present. A prominent right-sided nodule in the pelvis measures 1.5 cm on series 3, image 94 which is similar. Vasculature: Unremarkable. No abdominal aortic aneurysm. Lymph nodes: 1 cm node in the candy hepatis on series 3, image 32 is unchanged. Urinary bladder: The bladder is decompressed. Reproductive: Small-sized of the uterus with probable partial hysterectomy changes again visualized. Bones/joints: Sclerosis of the T9 vertebrae is again present. Soft tissues: Unremarkable. IMPRESSION: 1. Mildly increasing small bowel dilatation with persistent apparent distal obstruction at the level of the right lower quadrant mass near the ileocecal valve. This mass is again unclear in origin potentially the cecum, appendix, or possibly the right adnexa. 2. Moderate volume ascites is unchanged. Stable findings suspicious for peritoneal metastasis. 3. Stable sclerosis of the T9 vertebrae suspicious for osseous metastasis. 4. Stable 17 mm left lower lobe pulmonary nodule suspicious for metastasis as well.
--- NOTE | 2022-08-21 19:17 | PC.NURSE ---
on the phone with @ this time.
--- NOTE | 2022-08-21 19:20 | PC.NURSE ---
pt accepted to ER by Dr. Ham
--- NOTE | 2022-08-21 19:20 | PC.NURSE ---
Kevan Sun MD accepted Patient to go to ER.
--- NOTE | 2022-08-21 20:23 | PC.NURSE ---
Addendum entered by Fabiana Aldrich RN 08/21/22 20:23: REPORT CALLED TO JULIETA HOBBS AT Original Note: JULIETA HOBBS
== END 2022-08-21 22:44 | disposition short-term general hospital (02) ==
PROVIDERS: Emergency Provider Student in an Organized Health Care Education/Training Program; PCP Family Medicine
DX: R10.9 Unspecified abdominal pain (principal); R11.2 Nausea with vomiting, unspecified; F41.9 Anxiety disorder, unspecified; E11.9 Type 2 diabetes mellitus without complications; I10 Essential (primary) hypertension; Z85.3 Personal history of malignant neoplasm of breast; Z90.49 Acquired absence of other specified parts of digestive tract; Z90.13 Acquired absence of bilateral breasts and nipples; Z82.3 Family history of stroke; Z82.49 Family history of ischemic heart disease and other diseases of the circulatory system
CPT/HCPCS: 74177; 80053; 85025; 96361; 96374; 96375; 96376; 99285; J2405; Q9967

== ENCOUNTER 2022-10-24 15:29 | Emergency (ER) | payer MEDICARE, SELFPAY ==
--- NOTE | 2022-10-24 15:44 | CT_ITS ---
PROCEDURE INFORMATION: Exam: CTA Neck With Contrast Exam date and time: 10/24/2022 4:42 PM Age: 67 years old Clinical indication: Vertigo TECHNIQUE: Imaging protocol: Computed tomographic angiography of the neck with contrast. 3D rendering (Not supervised by radiologist): MIP and/or 3D reconstructed images were created by the technologist. Radiation optimization: All CT scans at this facility use at least one of these dose optimization techniques: automated exposure control; mA and/or kV adjustment per patient size (includes targeted exams where dose is matched to clinical indication); or iterative reconstruction. Contrast material: ISOVUE; Contrast volume: 70 ml; Contrast route: INTRAVENOUS (IV); REPORTING DATA: Count of CT and Cardiac NM exams in prior 12 months: This patient has received 4 known CTs and 0 known cardiac nuclear medicine studies in the 12 months prior to the current study. COMPARISON: NM BONE SCAN WHOLE BODY 06/14/2022 12:42 PM FINDINGS: Limitations: Limited by artifact arising from metallic dental hardware/dental amalgam. Tubes, catheters and devices: There is right chest infusion port. Right common carotid artery: Mild plaquing and irregularity involving the right common carotid artery without significant stenosis. Right internal carotid artery: No stenosis of the extracranial segment. No dissection or occlusion. Right external carotid artery: No occlusion or stenosis of the origin. Left common carotid artery: There is mild plaquing and irregularity involving the left common carotid artery without significant stenosis. Left internal carotid artery: No stenosis of the extracranial segment. No dissection or occlusion. Left external carotid artery: No occlusion or stenosis of the origin. Right vertebral artery: No stenosis. No dissection or occlusion. Left vertebral artery: Left vertebral artery is dominant. Aorta: Aortic calcification. Thyroid: Previous thyroidectomy. Soft tissues: Normal. No significant soft tissue swelling. Bones/joints: There are degenerative changes involving the spine. IMPRESSION: No significant stenosis or dissection. REFERENCES: NASCET CRITERIA. The degree of stenosis in the cervical segment of the internal carotid artery is based on NASCET criteria. Normal is no stenosis. Mild is less than 50% stenosis. Moderate is 50-69% stenosis. Severe is 70% to 99% stenosis. Total occlusion is no detectable patent lumen.
--- NOTE | 2022-10-24 15:44 | CT_ITS ---
PROCEDURE INFORMATION: Exam: CTA Head With Contrast, Arteriography Exam date and time: 10/24/2022 4:42 PM Age: 67 years old Clinical indication: Vertigo TECHNIQUE: Imaging protocol: Computed tomographic angiography of the head with contrast. Exam focused on the arteries. 3D rendering (Not supervised by radiologist): MIP and/or 3D reconstructed images were created by the technologist. Radiation optimization: All CT scans at this facility use at least one of these dose optimization techniques: automated exposure control; mA and/or kV adjustment per patient size (includes targeted exams where dose is matched to clinical indication); or iterative reconstruction. Contrast material: 370; Contrast volume: 100 ml; Contrast route: INTRAVENOUS (IV); REPORTING DATA: Count of CT and Cardiac NM exams in prior 12 months: This patient has received 4 known CTs and 0 known cardiac nuclear medicine studies in the 12 months prior to the current study. COMPARISON: CT HEAD/BRAIN WO CON 10/24/2022 4:39 PM FINDINGS: ANTERIOR CIRCULATION: Right internal carotid artery: Calcification involving the right carotid siphon without significant stenosis. Right middle cerebral artery: No occlusion or significant stenosis. No aneurysm. Right anterior cerebral artery: No occlusion or significant stenosis. No aneurysm. Left internal carotid artery: Calcification involving the left carotid siphon without definite significant stenosis. Left middle cerebral artery: No occlusion or significant stenosis. No aneurysm. Left anterior cerebral artery: No occlusion or significant stenosis. No aneurysm. POSTERIOR CIRCULATION: Right vertebral artery: No occlusion or significant stenosis. No aneurysm. Left vertebral artery: Left vertebral artery is dominant. Basilar artery: No occlusion or significant stenosis. No aneurysm. Right posterior cerebral artery: No occlusion or significant stenosis. No aneurysm. Left posterior cerebral artery: No occlusion or significant stenosis. No aneurysm. IMPRESSION: No hemodynamically significant stenosis or large vessel occlusion.
--- NOTE | 2022-10-24 15:44 | CT_ITS ---
PROCEDURE INFORMATION: Exam: CT Head Without Contrast Exam date and time: 10/24/2022 4:39 PM Age: 67 years old Clinical indication: Dizziness; Additional info: Vertigo TECHNIQUE: Imaging protocol: Computed tomography of the head without contrast. Radiation optimization: All CT scans at this facility use at least one of these dose optimization techniques: automated exposure control; mA and/or kV adjustment per patient size (includes targeted exams where dose is matched to clinical indication); or iterative reconstruction. REPORTING DATA: Count of CT and Cardiac NM exams in prior 12 months: This patient has received 4 known CTs and 0 known cardiac nuclear medicine studies in the 12 months prior to the current study. COMPARISON: MR HEAD/BRAIN WO/W CON 12/15/2019 10:04 AM FINDINGS: Brain: Mild volume loss. No acute intracranial hemorrhage. No midline shift or intracranial mass effect. Cerebral ventricles: No hydrocephalus. Paranasal sinuses: Visualized sinuses are unremarkable. No fluid levels. Mastoid air cells: Visualized mastoid air cells are well aerated. Bones/joints: Unremarkable. No acute fracture. Soft tissues: Unremarkable. IMPRESSION: No acute intracranial abnormality.
[2022-10-24 15:45] VITALS: BP 127/72; PULSE 99; RESP 20; TEMP 36.5; O2SAT 98; BMI 24.7
--- NOTE | 2022-10-24 15:54 | ECG_ITS ---
APPROVED REPORT Exam: Resting ECG HR:90 bpm ECG Measurements Heart Rate 90 AXES MN 155 P 74 QRSd 81 QRS -66 QT 361 T 78 QTc 409 Conclusion SINUS RHYTHM PATTERN CONSISTENT WITH PULMONARY DISEASE POSSIBLE RIGHT VENTRICULAR CONDUCTION DELAY [RSR (QR) IN V1/V2] LEFT ANTERIOR FASCICULAR BLOCK [QRS AXIS <= -45, QR IN I, RS IN II] ABNORMAL ECG UNCONFIRMED REPORT Electronically signed by : Jerrell Ng MD 10/25/2022 20:30:26
[2022-10-24 16:00] VITALS: BP 115/74; PULSE 88; O2SAT 98
[2022-10-24 16:03] LABS: Basophils # 0.1 K/mm3 (0-0.2); Basophils % 0.9 % (0.1-2.0); Eosinophils # 0.3 K/mm3 (0.0-0.4); Eosinophils % 3.3 % (0.1-12.0); Hematocrit 39.8 % (37.0-47.0); Hemoglobin 13.5 g/dL (12.2-16.2); Lymphocytes # 1.5 K/mm3 (0.7-4.5); Lymphocytes % 17.6 % (10-50); Mean Corpuscular HGB Conc 33.8 g/dL (31.8-35.4); Mean Corpuscular Hemoglobin 26.7 pg (27.0-31.2); Mean Corpuscular Volume 78.9 fl (81-99); Mean Platelet Volume 8.9 fl (7.4-10.4); Monocytes # 0.5 K/mm3 (0.1-1.0); Monocytes % 5.7 % (1.7-9.3); Neutrophils # 6.3 K/mm3 (1.8-7.8); Neutrophils % 72.6 % (37.0-80.0); Platelet Count 345 K/mm3 (142-424); Red Blood Count 5.04 M/mm3 (4.20-5.40); White Blood Count 8.7 K/mm3 (4.8-10.8)
--- NOTE | 2022-10-24 16:10 | HMH.EDGENADL ---
Discharge Plan Disposition Patient Disposition: Home, Self-Care Prescriptions Prescriptions: New meclizine 25 mg tablet 25 mg PO TID PRN (Reason: dizziness) Qty: 15 0RF No Action metoprolol succinate 25 mg tablet extended release 24 hr 25 mg PO alprazolam 0.5 mg tablet 0.5 mg PO DAILYP PRN (Reason: Anxiety) metformin 500 mg tablet 500 mg PO BIDWMEAL sertraline 100 mg tablet 200 mg PO DAILY Rx Instructions: pt states she hasn't taken this in along time glimepiride 2 mg tablet 2 mg PO DAILY omeprazole 40 mg capsule,delayed release(DR/EC) 40 mg PO DAILY pregabalin 75 mg capsule 75 mg PO DAILY levothyroxine 175 mcg tablet 175 mcg PO DAILY Referrals Follow up/Referrals: Carole Orozco APRN [Primary Care Provider] - See instructions Activity Restrictions/Add. Instructions Additional Instructions/Restrictions: Drink fluids and take meclizine as needed for dizziness. Follow-up with your primary care physician within the next few days for repeat creatinine. Return for worsening pain fever or any other concerns within the next 8 hours Clinical Impressions Clinical Impression: Dizziness Discharge ED Provider: Filemon Harris General Adult HPI General Chief complaint: Dizziness Stated complaint: SOB Dizzy Time Seen by Provider: 10/24/22 15:30 Mode of Arrival: Ambulatory Source of Information: Patient Limitations: No Limitations Description of Symptoms (Recalled from ER Triage Doc. by RN): pt to ed c/o dizziness and nausea. pt reports she recently was d/c home from [facility] post colon surgery. pt states her dizziness was a gradual onset but is severe today. pt reports nausea associated. History of Present Illness HPI narrative: 67-year-old female presents with dizziness. She says that she had a recent bowel obstruction and abdominal tumor removed was at and then [facility] for a while. While she was at [facility] she started having dizziness when she turns her head however she did not tell them about it and was discharged home she has had frequent dizziness with moving her head. Associate with nausea no hearing changes or ringing in her ears. No fever chills or cough. No dysuria or hematuria. No chest pain or abdominal pain. No numbness weakness or tingling in arms or legs. Related Data Home Medications Medication Instructions Recorded Confirmed alprazolam 0.5 mg tablet 0.5 mg PO DAILYP PRN Anxiety 09/30/20 10/20/22 metformin 500 mg tablet 500 mg PO BIDWMEAL Diabetes 11/24/20 10/20/22 sertraline 100 mg tablet 200 mg PO DAILY Depression 11/24/20 10/20/22 glimepiride 2 mg tablet 2 mg PO DAILY Diabetes 07/24/22 10/20/22 levothyroxine 175 mcg tablet 175 mcg PO DAILY THYROID 07/24/22 10/20/22 omeprazole 40 mg capsule,delayed 40 mg PO DAILY GERD 07/24/22 10/20/22 release pregabalin 75 mg capsule 75 mg PO DAILY Pain 07/24/22 10/20/22 metoprolol succinate 25 mg 25 mg PO 10/20/22 10/20/22 tablet,extended release 24 hr Previous Rx's Medication Instructions Recorded meclizine 25 mg tablet 25 mg PO TID PRN dizziness #15 tabs 10/24/22 Allergies Allergy/AdvReac Type Severity Reaction Status Date / Time No Known Allergies Allergy Verified 10/20/22 14:44 [facility] Disclaimer: The information contained in this section may have been updated after the patient was seen, as this information can be updated by other users. Medical History Age-related osteoporosis without current pathological fracture Anxiety Cancer Diabetes mellitus History of breast cancer History of hypertension Osteoarthritis Surgical History H/O bilateral mastectomy History of appendectomy History of bunionectomy of left great toe Family History Other Coronary artery disease Hypertension St
[2022-10-24 16:15] LABS: Alanine Aminotransferase 25 U/L (12-78); Albumin Level 4.5 g/dl (3.5-5.0); Albumin/Globulin Ratio 1.3 (1.1-1.8); Alkaline Phosphatase 116 U/L (38-126); Aspartate Amino Transferase 24 U/L (14-36); Bilirubin,Total 0.5 mg/dl (0.2-1.3); Blood Urea Nitrogen 27 mg/dl (7-17); Calcium 9.6 mg/dl (8.4-10.2); Carbon Dioxide 21 mmol/L (22.0-30.0); Chloride 96 mmol/L (98-107); Creatinine Clearance Estimated 43 mL/min (50-200); Estimated Glomerular Filt Rate 45 ml/min (>60); GFR (African American) 54 ML/MIN (>60); Globulin 3.6 g/dL (1.3-3.2); Glucose 147 mg/dl (74-100); Magnesium 1.5 mg/dl (1.6-2.3); Sodium 131 mmol/L (136-145); Total Protein,Serum 8.1 g/dl (6.3-8.2)
[2022-10-24 16:27] LABS: Troponin I < 0.01 ng/ml (0.00-0.034)
[2022-10-24 16:30] VITALS: PULSE 82; O2SAT 98
--- NOTE | 2022-10-24 16:30 | PC.NURSE ---
pt to CT
[2022-10-24 17:01] VITALS: BP 125/69; PULSE 77; O2SAT 98
--- NOTE | 2022-10-24 18:07 | PC.NURSE ---
called to check on status of head CTA, matilda lucas told this nurse she would send message to radiologist for read.
[2022-10-24 18:43] VITALS: BP 131/71; PULSE 69; RESP 18; TEMP 36.5; O2SAT 97
== END 2022-10-24 18:44 | disposition home or self-care (01) ==
PROVIDERS: Emergency Provider Emergency Medicine; PCP Nurse Practitioner Family
DX: R42 Dizziness and giddiness (principal); R11.0 Nausea
CPT/HCPCS: 70450; 70496; 70498; 80053; 83735; 84443; 84484; 85025; 93005; 96361; 96374; 96375; 99285; J3475; Q9967

== ENCOUNTER 2022-11-09 10:02 | Outpatient (CLI) | payer MEDICARE, SELFPAY ==
[2022-11-09 10:07] VITALS: BMI 24.0
[2022-11-09 10:48] LABS: Basophils % 0.3 % (0.1-2.0); Eosinophils # 0.3 K/mm3 (0.0-0.4); Eosinophils % 3.9 % (0.1-12.0); Hematocrit 35.2 % (37.0-47.0); Hemoglobin 11.8 g/dL (12.2-16.2); Lymphocytes # 1.1 K/mm3 (0.7-4.5); Lymphocytes % 14.4 % (10-50); Mean Corpuscular HGB Conc 33.5 g/dL (31.8-35.4); Mean Corpuscular Hemoglobin 26.5 pg (27.0-31.2); Mean Corpuscular Volume 79.1 fl (81-99); Mean Platelet Volume 8.4 fl (7.4-10.4); Monocytes # 0.5 K/mm3 (0.1-1.0); Monocytes % 6.4 % (1.7-9.3); Neutrophils # 5.7 K/mm3 (1.8-7.8); Neutrophils % 75.1 % (37.0-80.0); Platelet Count 251 K/mm3 (142-424); Red Blood Count 4.44 M/mm3 (4.20-5.40); White Blood Count 7.5 K/mm3 (4.8-10.8)
[2022-11-09 10:53] LABS: Chloride 95 mmol/L (98-107); Potassium 3.9 mmoL/L (3.5-5.1); Sodium 133 mmol/L (136-145)
[2022-11-09 10:56] LABS: Alanine Aminotransferase 26 U/L (12-78); Albumin Level 3.8 g/dl (3.5-5.0); Albumin/Globulin Ratio 1.2 (1.1-1.8); Alkaline Phosphatase 109 U/L (38-126); Anion Gap 18.9 mEq/L (5-15); Aspartate Amino Transferase 27 U/L (14-36); Bilirubin,Total 0.4 mg/dl (0.2-1.3); Blood Urea Nitrogen 18 mg/dl (7-17); Carbon Dioxide 23 mmol/L (22.0-30.0); Creatinine Clearance Estimated 52 mL/min (50-200); Estimated Glomerular Filt Rate 71 ml/min (>60); GFR (African American) 86 ML/MIN (>60); Globulin 3.2 g/dL (1.3-3.2)
[2022-11-09 10:57] LABS: Calcium 9.3 mg/dl (8.4-10.2); Glucose 189 mg/dl (74-100)
== END 2022-11-09 10:35 | disposition home or self-care (01) ==
LOC: INF 10:03
PROVIDERS: PCP Family Medicine; Visit Provider Internal Medicine Medical Oncology
DX: Z45.2 Encounter for adjustment and management of vascular access device (principal); C18.9 Malignant neoplasm of colon, unspecified
CPT/HCPCS: 36591; 80053; 85025; J1642

== ENCOUNTER 2022-11-20 08:53 | Outpatient (CLI) | payer MEDICARE, SELFPAY ==
[2022-11-20 08:53] VITALS: BMI 23.6
--- NOTE | 2022-11-20 09:02 | CT_ITS ---
FINAL REPORT CLINICAL HISTORY: COLON CANCER COMPARISON: 06/07/2022 FINDINGS: Axial CT images of the chest were obtained with contrast. Coronal reformatted images were also obtained. This study was performed with techniques to keep radiation doses as low as reasonably achievable, (ALARA). Individualized dose reduction techniques using automated exposure control or adjustment of mA and/or KV according to the patient''''s size were employed. A right chest port is in place. Small mediastinal lymph nodes are stable. There is a small hiatal hernia. Mild wall thickening is seen of the thoracic esophagus which is nonspecific, favor inflammatory. There are small axillary lymph nodes. There is no evidence of adenopathy. A lobular nodule measuring 16 mm in the left lower lobe is stable in appearance. There is a stable, lytic and sclerotic area in the T9 vertebral body. Bony metastasis not excluded. IMPRESSION: No new pulmonary mass or nodule. Stable lytic and sclerotic area in the T9 vertebral body. Bony metastasis not excluded. Mild wall thickening of the distal esophagus which is nonspecific, favor inflammatory. Reviewed, Interpreted and Dictated by Marco Herrera III, MD Transcribed by Lulu Jay Authenticated and [facility]
--- NOTE | 2022-11-20 09:02 | CT_ITS ---
FINAL REPORT TECHNIQUE: After the administration of intravenous contrast, axial images were obtained through the abdomen and pelvis by computed tomography. Oral contrast was also administered. This study was performed with technique to keep radiation doses as low as reasonably achievable, (ALARA). Individualized dose reduction techniques using automated exposure control or adjustment of the MA and/or KV according to the patient's size were employed. CLINICAL HISTORY: COLON CANCER COMPARISON: 08/21/2022 FINDINGS: Abdomen: There is moderate ascites which has partially improved. The liver is normal in size and attenuation. The spleen is mildly enlarged at 15 cm, slightly worse from prior exam. There is diffuse, nonspecific gallbladder wall thickening.. The adrenals are normal. The pancreas is unremarkable. The kidneys enhance appropriately. The aorta is normal in caliber. There has been interval improvement of findings of small-bowel obstruction. There is worsening of widespread small bowel wall thickening. A mass in the right lateral abdomen is seen measuring 50 x 42 mm, significantly larger than on prior exam consistent with neoplastic involvement. Pelvis: The appendix is not identified. There is a new pelvis ileostomy. Marked worsening is seen of wall thickening of multiple small bowel loops with worsening soft tissue in the lower pelvis. Focus on the left measures 35 mm. This probably involves the left ovary. There is worsening, widespread peritoneal thickening. The urinary bladder is unremarkable. IMPRESSION: New pelvis ileostomy. Improved small bowel obstruction. 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 Reviewed, Interpreted and Dictated by Marco Herrera III, MD Transcribed by Lulu Jay Authenticated and . [facility]
[2022-11-20 09:06] LABS: Basophils % 0.4 % (0.1-2.0); Eosinophils # 0.2 K/mm3 (0.0-0.4); Eosinophils % 2.1 % (0.1-12.0); Hematocrit 37.3 % (37.0-47.0); Hemoglobin 12.5 g/dL (12.2-16.2); Lymphocytes # 1.4 K/mm3 (0.7-4.5); Lymphocytes % 15.4 % (10-50); Mean Corpuscular HGB Conc 33.5 g/dL (31.8-35.4); Mean Corpuscular Hemoglobin 26.7 pg (27.0-31.2); Mean Corpuscular Volume 79.5 fl (81-99); Mean Platelet Volume 8.4 fl (7.4-10.4); Monocytes # 0.6 K/mm3 (0.1-1.0); Monocytes % 6.2 % (1.7-9.3); Neutrophils # 6.9 K/mm3 (1.8-7.8); Neutrophils % 76.1 % (37.0-80.0); Platelet Count 358 K/mm3 (142-424); Red Cell Distribution Width 15.3 % (11.5-17.5); White Blood Count 9.1 K/mm3 (4.8-10.8)
[2022-11-20 09:18] LABS: Alanine Aminotransferase 26 U/L (12-78); Albumin Level 4.4 g/dl (3.5-5.0); Albumin/Globulin Ratio 1.4 (1.1-1.8); Alkaline Phosphatase 125 U/L (38-126); Anion Gap 16.7 mEq/L (5-15); Aspartate Amino Transferase 28 U/L (14-36); Bilirubin,Total 0.6 mg/dl (0.2-1.3); Blood Urea Nitrogen 29 mg/dl (7-17); Carbon Dioxide 26 mmol/L (22.0-30.0); Chloride 86 mmol/L (98-107); Creatinine Clearance Estimated 46 mL/min (50-200); Estimated Glomerular Filt Rate 49 ml/min (>60); GFR (African American) 60 ML/MIN (>60); Globulin 3.2 g/dL (1.3-3.2); Glucose 224 mg/dl (74-100); Potassium 3.7 mmoL/L (3.5-5.1); Sodium 125 mmol/L (136-145); Total Protein,Serum 7.6 g/dl (6.3-8.2)
== END 2022-11-20 10:00 | disposition home or self-care (01) ==
PROVIDERS: PCP Family Medicine; Visit Provider Internal Medicine Medical Oncology
DX: C18.9 Malignant neoplasm of colon, unspecified (principal); Z45.2 Encounter for adjustment and management of vascular access device
CPT/HCPCS: 36591; 71260; 74177; 80053; 85025; J1642; Q9967

== ENCOUNTER 2022-12-15 08:41 | Outpatient (CLI) | payer MEDICARE, SELFPAY ==
[2022-12-15 08:45] VITALS: BMI 23.6
[2022-12-15 09:03] LABS: Basophils % 0.3 % (0.1-2.0); Eosinophils # 0.2 K/mm3 (0.0-0.4); Eosinophils % 3.9 % (0.1-12.0); Hematocrit 31.8 % (37.0-47.0); Hemoglobin 10.6 g/dL (12.2-16.2); Lymphocytes # 1.2 K/mm3 (0.7-4.5); Lymphocytes % 19.7 % (10-50); Mean Corpuscular HGB Conc 33.4 g/dL (31.8-35.4); Mean Corpuscular Hemoglobin 27.2 pg (27.0-31.2); Mean Corpuscular Volume 81.4 fl (81-99); Mean Platelet Volume 8.1 fl (7.4-10.4); Monocytes # 0.4 K/mm3 (0.1-1.0); Monocytes % 6.9 % (1.7-9.3); Neutrophils # 4.3 K/mm3 (1.8-7.8); Neutrophils % 69.2 % (37.0-80.0); Platelet Count 353 K/mm3 (142-424); Red Cell Distribution Width 17.2 % (11.5-17.5); White Blood Count 6.2 K/mm3 (4.8-10.8)
[2022-12-15 09:22] LABS: Alanine Aminotransferase 27 U/L (12-78); Albumin/Globulin Ratio 1.3 (1.1-1.8); Alkaline Phosphatase 96 U/L (38-126); Anion Gap 15.9 mEq/L (5-15); Aspartate Amino Transferase 27 U/L (14-36); Bilirubin,Total 0.4 mg/dl (0.2-1.3); Blood Urea Nitrogen 19 mg/dl (7-17); Calcium 8.7 mg/dl (8.4-10.2); Carbon Dioxide 24 mmol/L (22.0-30.0); Chloride 97 mmol/L (98-107); Creatinine Clearance Estimated 51 mL/min (50-200); Estimated Glomerular Filt Rate 62 ml/min (>60); GFR (African American) 75 ML/MIN (>60); Globulin 3.1 g/dL (1.3-3.2); Glucose 161 mg/dl (74-100); Potassium 3.9 mmoL/L (3.5-5.1); Sodium 133 mmol/L (136-145); Total Protein,Serum 7.1 g/dl (6.3-8.2)
[2022-12-16 12:10] LABS: CEA 47.7 ng/mL (0.0-4.7)
== END 2022-12-15 08:59 | disposition home or self-care (01) ==
LOC: INF 08:43
PROVIDERS: PCP Family Medicine; Visit Provider Internal Medicine Medical Oncology
DX: C18.9 Malignant neoplasm of colon, unspecified (principal); Z45.2 Encounter for adjustment and management of vascular access device
CPT/HCPCS: 36591; 80053; 82378; 85025; J1642

== ENCOUNTER 2023-01-04 12:15 | Outpatient (CLI) | payer MEDICARE, SELFPAY ==
[2023-01-04 12:21] VITALS: BMI 23.7
[2023-01-04 12:37] LABS: Basophils % 0.5 % (0.1-2.0); Eosinophils # 0.2 K/mm3 (0.0-0.4); Eosinophils % 4.5 % (0.1-12.0); Hematocrit 32.2 % (37.0-47.0); Hemoglobin 10.8 g/dL (12.2-16.2); Lymphocytes % 19.6 % (10-50); Mean Corpuscular HGB Conc 33.4 g/dL (31.8-35.4); Mean Corpuscular Hemoglobin 28.7 pg (27.0-31.2); Mean Platelet Volume 8.1 fl (7.4-10.4); Monocytes # 0.3 K/mm3 (0.1-1.0); Monocytes % 6.5 % (1.7-9.3); Neutrophils # 3.5 K/mm3 (1.8-7.8); Neutrophils % 69.1 % (37.0-80.0); Platelet Count 259 K/mm3 (142-424); Red Blood Count 3.75 M/mm3 (4.20-5.40); Red Cell Distribution Width 20.5 % (11.5-17.5); White Blood Count 5.1 K/mm3 (4.8-10.8)
[2023-01-04 12:51] LABS: Alanine Aminotransferase 24 U/L (12-78); Albumin/Globulin Ratio 1.3 (1.1-1.8); Alkaline Phosphatase 91 U/L (38-126); Aspartate Amino Transferase 28 U/L (14-36); Bilirubin,Total 0.8 mg/dl (0.2-1.3); Blood Urea Nitrogen 21 mg/dl (7-17); Calcium 9.1 mg/dl (8.4-10.2); Carbon Dioxide 24 mmol/L (22.0-30.0); Chloride 102 mmol/L (98-107); Creatinine Clearance Estimated 46 mL/min (50-200); Estimated Glomerular Filt Rate 49 ml/min (>60); GFR (African American) 60 ML/MIN (>60); Glucose 134 mg/dl (74-100); Sodium 135 mmol/L (136-145)
== END 2023-01-04 12:29 | disposition home or self-care (01) ==
LOC: INF 12:16
PROVIDERS: PCP Family Medicine; Visit Provider Internal Medicine Medical Oncology
DX: C18.9 Malignant neoplasm of colon, unspecified (principal); Z45.2 Encounter for adjustment and management of vascular access device
CPT/HCPCS: 36591; 80053; 85025; J1642

== ENCOUNTER 2023-02-01 12:47 | Outpatient (CLI) | payer MEDICARE, SELFPAY ==
[2023-02-01 12:50] VITALS: BMI 23.3
[2023-02-01 13:12] LABS: Basophils % 0.5 % (0.1-2.0); Eosinophils # 0.4 K/mm3 (0.0-0.4); Eosinophils % 6.9 % (0.1-12.0); Hematocrit 34.8 % (37.0-47.0); Hemoglobin 11.4 g/dL (12.2-16.2); Lymphocytes % 16.6 % (10-50); Mean Corpuscular HGB Conc 32.7 g/dL (31.8-35.4); Mean Corpuscular Hemoglobin 30.6 pg (27.0-31.2); Mean Corpuscular Volume 93.8 fl (81-99); Mean Platelet Volume 8.4 fl (7.4-10.4); Monocytes # 0.3 K/mm3 (0.1-1.0); Monocytes % 5.7 % (1.7-9.3); Neutrophils # 4.2 K/mm3 (1.8-7.8); Neutrophils % 70.2 % (37.0-80.0); Platelet Count 230 K/mm3 (142-424); Red Blood Count 3.71 M/mm3 (4.20-5.40); Red Cell Distribution Width 18.6 % (11.5-17.5)
[2023-02-01 13:25] LABS: Alanine Aminotransferase 28 U/L (12-78); Albumin Level 4.2 g/dl (3.5-5.0); Albumin/Globulin Ratio 1.4 (1.1-1.8); Alkaline Phosphatase 114 U/L (38-126); Anion Gap 11.2 mEq/L (5-15); Aspartate Amino Transferase 37 U/L (14-36); Bilirubin,Total 0.5 mg/dl (0.2-1.3); Blood Urea Nitrogen 19 mg/dl (7-17); Calcium 9.3 mg/dl (8.4-10.2); Carbon Dioxide 26 mmol/L (22.0-30.0); Chloride 106 mmol/L (98-107); Creatinine Clearance Estimated 50 mL/min (50-200); Estimated Glomerular Filt Rate 62 ml/min (>60); GFR (African American) 75 ML/MIN (>60); Glucose 129 mg/dl (74-100); Potassium 4.2 mmoL/L (3.5-5.1); Sodium 139 mmol/L (136-145); Total Protein,Serum 7.2 g/dl (6.3-8.2)
[2023-02-02 08:18] LABS: CEA 11.5 ng/mL (0.0-4.7)
== END 2023-02-01 13:00 | disposition home or self-care (01) ==
LOC: INF 12:48
PROVIDERS: PCP Family Medicine; Visit Provider Internal Medicine Medical Oncology
DX: C18.9 Malignant neoplasm of colon, unspecified (principal); Z45.2 Encounter for adjustment and management of vascular access device
CPT/HCPCS: 36591; 80053; 82378; 85025; J1642

== ENCOUNTER → 2023-03-02 08:31 | Outpatient (CLI) | payer MEDICARE, SELFPAY ==
--- NOTE | 2023-03-02 08:37 | CT_ITS ---
FINAL REPORT TECHNIQUE: Routine axial images were obtained from the lung apices to below the diaphragm following IV contrast administration. Individualized dose reduction techniques using automated exposure control or adjustment of the mA and/or kV according to the patient size were employed. CLINICAL HISTORY: COLON CANCER COMPARISON: 11/20/2022 FINDINGS: The mediastinal vasculature is well opacified. There is no evidence of mediastinal mass or adenopathy. No pleural or pericardial effusion is seen. Chest port catheter tip terminates in the SVC. Redemonstrated is a lobular mass in the left lower lobe measuring 16 x 11 mm, stable from previous. Finding is best seen on image 64 of series 4. There is a mixed sclerotic and lucent lesion in the T9 vertebral body which is entirely stable. IMPRESSION: Stable mixed sclerotic and lucent lesion in T9 concerning for metastases. Stable left lower lobe mass. Recommend continued follow-up. Reviewed, Interpreted and Dictated by Meek Roy MD Transcribed by Carole Larios Authenticated and [facility]
--- NOTE | 2023-03-02 08:37 | CT_ITS ---
FINAL REPORT TECHNIQUE: After the administration of oral and intravenous contrast, axial images were obtained through the abdomen and pelvis by computed tomography. The study was performed with techniques to keep radiation dose as low as reasonably achievable, (ALARA). Individual dose reduction techniques using automated exposure control or adjustment of mA and/or kV according to the patient's size were employed. CLINICAL HISTORY: COLON CANCER COMPARISON: 11/20/2022 FINDINGS: Abdomen: The liver parenchyma is homogeneous. The gallbladder is present. The spleen is enlarged measuring up to 16 cm in craniocaudal dimension. The pancreas, adrenals and kidneys appear unremarkable. The aorta is normal in caliber. There is no adenopathy. There is a moderate amount of ascites throughout, similar to previous. There is mild diffuse bowel wall thickening. There is a multilocular partially calcified mass in the right hemiabdomen and pelvis measuring 7.1 x 5.5 cm, previously measured 7.7 x 5.9 cm. Pelvis: The appendix is not identified. The uterus is present. The ovaries are unremarkable. The urinary bladder is unremarkable. There is no adenopathy. IMPRESSION: Moderate ascites throughout, similar to previous. Splenomegaly. Diffuse bowel wall thickening. Slightly improved partially calcified mass in the right hemiabdomen and pelvis. Recommend continued follow-up. Reviewed, Interpreted and Dictated by Meek Roy MD Transcribed by Carole Larios Authenticated and [facility]
== END ==
LOC: RAD 08:32
PROVIDERS: PCP Family Medicine; Visit Provider Internal Medicine Medical Oncology
DX: C18.9 Malignant neoplasm of colon, unspecified (principal)
CPT/HCPCS: 71260; 74177; Q9967

== ENCOUNTER 2023-03-08 12:35 | Outpatient (CLI) | payer MEDICARE, SELFPAY ==
[2023-03-08 12:40] VITALS: BMI 23.0
[2023-03-08 13:00] VITALS: BP 148/67; PULSE 95; RESP 16; TEMP 36.8; O2SAT 100
[2023-03-08 13:07] LABS: Basophils % 0.3 % (0.1-2.0); Eosinophils # 0.2 K/mm3 (0.0-0.4); Eosinophils % 3.8 % (0.1-12.0); Hematocrit 36.6 % (37.0-47.0); Hemoglobin 12.3 g/dL (12.2-16.2); Lymphocytes # 1.1 K/mm3 (0.7-4.5); Lymphocytes % 20.1 % (10-50); Mean Corpuscular HGB Conc 33.6 g/dL (31.8-35.4); Mean Corpuscular Hemoglobin 32.2 pg (27.0-31.2); Mean Corpuscular Volume 96.1 fl (81-99); Mean Platelet Volume 8.8 fl (7.4-10.4); Monocytes # 0.4 K/mm3 (0.1-1.0); Monocytes % 7.4 % (1.7-9.3); Neutrophils # 3.7 K/mm3 (1.8-7.8); Neutrophils % 68.4 % (37.0-80.0); Platelet Count 201 K/mm3 (142-424); Red Blood Count 3.81 M/mm3 (4.20-5.40); Red Cell Distribution Width 15.1 % (11.5-17.5); White Blood Count 5.4 K/mm3 (4.8-10.8)
[2023-03-08 13:12] LABS: Chloride 104 mmol/L (98-107); Potassium 4.3 mmoL/L (3.5-5.1); Sodium 137 mmol/L (136-145)
[2023-03-08 13:14] LABS: Blood Urea Nitrogen 21 mg/dl (7-17); Creatinine Clearance Estimated 49 mL/min (50-200); Estimated Glomerular Filt Rate 55 ml/min (>60); GFR (African American) 67 ML/MIN (>60)
[2023-03-08 13:15] LABS: Alanine Aminotransferase 20 U/L (12-78); Albumin Level 4.1 g/dl (3.5-5.0); Albumin/Globulin Ratio 1.3 (1.1-1.8); Alkaline Phosphatase 92 U/L (38-126); Anion Gap 13.3 mEq/L (5-15); Aspartate Amino Transferase 22 U/L (14-36); Bilirubin,Total 0.6 mg/dl (0.2-1.3); Calcium 9.6 mg/dl (8.4-10.2); Carbon Dioxide 24 mmol/L (22.0-30.0); Globulin 3.1 g/dL (1.3-3.2); Glucose 151 mg/dl (74-100); Total Protein,Serum 7.2 g/dl (6.3-8.2)
[2023-03-08 14:00] VITALS: BP 132/79; PULSE 89; RESP 14; O2SAT 100
[2023-03-08 15:05] VITALS: BP 129/57; PULSE 79; RESP 16; TEMP 36.7; O2SAT 100
== END 2023-03-08 15:10 | disposition home or self-care (01) ==
LOC: INF 12:36
PROVIDERS: PCP Family Medicine; Visit Provider Internal Medicine Medical Oncology
DX: C18.9 Malignant neoplasm of colon, unspecified (principal); E86.0 Dehydration; Z45.2 Encounter for adjustment and management of vascular access device
CPT/HCPCS: 80053; 85025; 96360; 96361; J1642

== ENCOUNTER 2023-04-04 18:08 | Inpatient (IN) | payer MEDICARE, SELFPAY ==
[2023-04-04] VITALS (7 sets, daily range): BP systolic 130–155; BP diastolic 67–115; PULSE 74–92; RESP 16–20; TEMP 36.6–36.7; O2SAT 97–100; BMI 24.1
--- NOTE | 2023-04-04 18:10 | ECG_ITS ---
APPROVED REPORT Exam: Resting ECG HR:78 bpm ECG Measurements Heart Rate 78 AXES MS 141 P 51 QRSd 88 QRS -54 QT 382 T 59 QTc 416 Conclusion SINUS RHYTHM PATTERN CONSISTENT WITH PULMONARY DISEASE LEFT ANTERIOR FASCICULAR BLOCK [QRS AXIS <= -45, QR IN I, RS IN II] ABNORMAL ECG UNCONFIRMED REPORT Electronically signed by : Jerrell Ng MD 04/05/2023 07:30:11
[2023-04-04 18:34] LABS: Basophils % 0.4 % (0.1-2.0); Eosinophils # 0.2 K/mm3 (0.0-0.4); Eosinophils % 2.7 % (0.1-12.0); Hematocrit 39.3 % (37.0-47.0); Hemoglobin 13.3 g/dL (12.2-16.2); Lymphocytes % 17.6 % (10-50); Mean Corpuscular HGB Conc 33.8 g/dL (31.8-35.4); Mean Corpuscular Hemoglobin 30.2 pg (27.0-31.2); Mean Corpuscular Volume 89.3 fl (81-99); Mean Platelet Volume 9.5 fl (7.4-10.4); Monocytes # 0.4 K/mm3 (0.1-1.0); Monocytes % 7.2 % (1.7-9.3); Neutrophils % 72.1 % (37.0-80.0); Platelet Count 259 K/mm3 (142-424); Red Blood Count 4.41 M/mm3 (4.20-5.40); Red Cell Distribution Width 13.9 % (11.5-17.5); White Blood Count 5.5 K/mm3 (4.8-10.8)
[2023-04-04 18:38] LABS: Chloride 104 mmol/L (98-107)
[2023-04-04 18:39] LABS: Potassium 4.1 mmoL/L (3.5-5.1); Sodium 137 mmol/L (136-145)
[2023-04-04 18:42] LABS: Anion Gap 14.1 mEq/L (5-15); Calcium 9.6 mg/dl (8.4-10.2); Carbon Dioxide 23 mmol/L (22.0-30.0); Creatinine Clearance Estimated 50 mL/min (50-200); Estimated Glomerular Filt Rate 62 ml/min (>60); GFR (African American) 75 ML/MIN (>60); Glucose 141 mg/dl (74-100)
[2023-04-04 18:48] LABS: Blood Urea Nitrogen 17 mg/dl (7-17)
[2023-04-04 18:58] LABS: Lipase 93 U/L (23-300)
[2023-04-04 19:13] LABS: Troponin I < 0.01 ng/ml (0.00-0.034)
--- NOTE | 2023-04-04 20:10 | CT_ITS ---
PROCEDURE INFORMATION: Exam: CTA Abdomen and Pelvis With Contrast Exam date and time: 04/04/2023 8:21 PM Age: 67 years old Clinical indication: Abdominal pain; Generalized; Prior surgery; Surgery date: 6+ months; Surgery type: Colostomy in August 2022; Additional info: Severe acute abdominal pain TECHNIQUE: Imaging protocol: Computed tomographic angiography of the abdomen and pelvis with contrast. Exam focused on the arteries. 3D rendering (Not supervised by radiologist): MIP and/or 3D reconstructed images were created by the technologist. Radiation optimization: All CT scans at this facility use at least one of these dose optimization techniques: automated exposure control; mA and/or kV adjustment per patient size (includes targeted exams where dose is matched to clinical indication); or iterative reconstruction. Contrast material: ISOVUE; Contrast volume: 100 ml; Contrast route: INTRAVENOUS (IV); REPORTING DATA: Count of CT and Cardiac NM exams in prior 12 months: This patient has received 11 known CTs and 0 known cardiac nuclear medicine studies in the 12 months prior to the current study. COMPARISON: CT ABDOMEN PELVIS W CON 03/02/2023 8:55 AM FINDINGS: Lungs: Unchanged 16 x 11 mm left lower lobe noncalcified nodule adjacent to the hemidiaphragm. Aorta: Mild/moderate abdominal aortic atherosclerotic disease without aneurysm or dissection. Celiac trunk and mesenteric arteries: No occlusion or significant stenosis. Renal arteries: Normal-appearing left renal artery. There are 2 equal sized right renal arteries without significant atherosclerotic disease. Right iliac arteries: Mild atherosclerotic disease in the right common and internal iliac arteries without significant stenosis. Normal-appearing right external iliac artery. Right femoral/popliteal arteries: Mild atherosclerotic disease in the right common femoral artery with mild stenosis. Left iliac arteries: Mild atherosclerotic disease in the left common iliac artery without significant stenosis. Normal-appearing left internal and external iliac arteries. Left femoral/popliteal arteries: Normal-appearing left common femoral artery. Liver: Homogeneous liver without focal lesions. The liver appears slightly larger from prior study. Gallbladder and bile ducts: Decompressed gallbladder. No biliary ductal dilatation. Pancreas: Unremarkable. No mass. No ductal dilation. Spleen: Unchanged splenomegaly. The spleen measures 15.7 cm craniocaudal. Adrenal glands: Unremarkable. No mass. Kidneys and ureters: Unremarkable. No solid mass. No hydronephrosis. Stomach and bowel: Unchanged sigmoid colon mass. Diffuse colonic diverticulosis. Diverting ileostomy in the right abdomen. Diffuse small bowel dilatation up to 3.5 cm with multiple air-fluid levels. Mild hyperenhancement of the ileum just proximal to the diverting ileostomy. Appendix: No evidence of appendicitis. Intraperitoneal space: Mild increase in ascites. Unchanged diffuse peritoneal carcinomatosis with extensive thick tumor anterosuperior to the transverse colon and multilobulated partially calcified masses in the right paracolic gutter extending into the superior right iliac fossa. Lymph nodes: Unremarkable. No enlarged lymph nodes. Urinary bladder: Unremarkable. No mass. Reproductive: Unchanged bilateral ovarian enlargement. New 4.4 cm fluid collection/cystic structure along the superior aspect of the uterus. Bones/joints: Unchanged mixed lytic and sclerotic process at T9 which could be metastatic disease or Paget's disease. Soft tissues: Ventral midline laparotomy scar in the abdominal wall. Right abdominal ileostomy. IMPRESSION: 1. No evidence of acute vascular occlusion or active GI bleeding. 2. Interval
[2023-04-04 20:51] LABS: Chloride 104 mmol/L (98-107)
[2023-04-04 20:52] LABS: Potassium 4.1 mmoL/L (3.5-5.1); Sodium 138 mmol/L (136-145)
[2023-04-04 20:54] LABS: Alanine Aminotransferase 27 U/L (12-78); Albumin Level 4.3 g/dl (3.5-5.0); Albumin/Globulin Ratio 1.2 (1.1-1.8); Alkaline Phosphatase 123 U/L (38-126); Anion Gap 16.1 mEq/L (5-15); Aspartate Amino Transferase 44 U/L (14-36); Bilirubin,Total 0.6 mg/dl (0.2-1.3); Blood Urea Nitrogen 17 mg/dl (7-17); Carbon Dioxide 22 mmol/L (22.0-30.0); Creatinine Clearance Estimated 50 mL/min (50-200); Estimated Glomerular Filt Rate 62 ml/min (>60); GFR (African American) 75 ML/MIN (>60); Globulin 3.7 g/dL (1.3-3.2)
[2023-04-04 20:55] LABS: Calcium 9.6 mg/dl (8.4-10.2); Glucose 140 mg/dl (74-100)
--- NOTE | 2023-04-04 21:12 | PC.NURSE ---
spoke with lab re: drawing troponinkristel.
[2023-04-04 22:01] LABS: Troponin I < 0.01 ng/ml (0.00-0.034)
--- NOTE | 2023-04-04 22:26 | PC.NURSE ---
rounded on pt, pt complains of abdominal pain but no other concerns at this time.
--- NOTE | 2023-04-04 22:27 | PC.NURSE ---
call placed to surg onc at . waiting on return call
--- NOTE | 2023-04-05 01:50 | HMH.EDGENADL ---
Discharge Plan Disposition Patient Disposition: Admitted Clinical Impressions Clinical Impression: Small bowel obstruction Discharge ED Provider: Madhu Garcia General Adult HPI General Chief complaint: Abdominal Pain Stated complaint: chest pain Time Seen by Provider: 04/04/23 19:17 Mode of Arrival: EMS Source of Information: Patient and EMS Limitations: No Limitations Description of Symptoms (Recalled from ER Triage Doc. by RN): pt presents to ED c/o upper abdominal pain since lunch. pt states she ate tomato soup at lunch and since eating lunch she has had upper abdominal pain that feels like a band around her abdomen. pt denies vomiting. pt reports stage 4 terminal colon cancer. pt states she has to have a stoma revision April 18. pt reports decreased output out of ostomy. pt states she was taking oral chemo pills but not currently at this time. History of Present Illness HPI narrative: The patient presents with a chief complaint of severe back pain, which started around noon or 1 PM today. She reports that the pain is located around her back and possibly related to her gallbladder. The patient has a history of stage 4 colon cancer and currently has an ileostomy bag. She mentions that she has not experienced pain like this before and describes it as being sucker punched. The patient also reports waves of pain and used a heating pad on her back earlier today. The patient states that she is experiencing nausea and heartburn, and notes that her ileostomy bag is not functioning properly, with minimal output. She denies any history of gallstones and has not had this type of pain before. The patient has a history of nerve pain related to her colon cancer and is currently taking oxycodone for pain management. The patient is currently on chemotherapy with capecitabine (2,600 mg/day for two weeks on, two weeks off) and has completed five rounds. She has been off chemotherapy since March 08 due to an upcoming stoma revision surgery scheduled for April 18. The patient denies any blood thinner usage and reports that her heart, lungs, and kidneys are fine. She also mentions that her cancer markers (CEAs) have decreased from 47 to 11 and that an unknown mass has shrunk. The patient reports having a hiatal hernia and has been experiencing increased burping and belching. She also states that she is extremely dehydrated and would like to receive fluids. The patient receives most of her care at . Related Data Home Medications Medication Instructions Recorded Confirmed levothyroxine 200 mcg tablet 200 mcg PO DAILY Supplement 03/08/23 04/05/23 Previous Rx's Medication Instructions Recorded oxycodone-acetaminophen 5 mg-325 1 tab PO Q4-6H PRN cancer pain #60 03/08/23 mg tablet (Percocet) tabs Allergies Allergy/AdvReac Type Severity Reaction Status Date / Time No Known Allergies Allergy Verified 03/08/23 15:22 [facility] Disclaimer: The information contained in this section may have been updated after the patient was seen, as this information can be updated by other users. Medical History (Updated 04/05/23 @ 01:45 by Gale Sprague RN) Age-related osteoporosis without current pathological fracture Anxiety Cancer Colon cancer Diabetes mellitus History of breast cancer History of hypertension Lung nodule Osteoarthritis Thyroid cancer Surgical History (Updated 04/05/23 @ 01:45 by Gale Sprague RN) H/O bilateral mastectomy H/O thyroidectomy History of appendectomy History of bunionectomy of left great toe Total knee replacement status Family History Other Coronary artery disease Hypertension Stroke Social History (Updated 04/05/23 @ 01:46 by Gale Sprague RN) Smoking Status: Current every day smoker tobacco type: cigarettes packs per day: 1 alcohol intake: never current occupational status: other Travel in the last 8
--- NOTE | 2023-04-05 01:52 | PC.NURSE ---
Pt refused NG tube insertion in ED @9242 pt arrived to floor via wheelchair @8950
--- NOTE | 2023-04-05 02:06 | PC.NURSE ---
pt arrived to floor via wheelchair @23;18
[2023-04-05 04:00] VITALS: BP 126/64; PULSE 66; RESP 16; TEMP 36.6; O2SAT 98; BMI 24.3
--- NOTE | 2023-04-05 05:22 | PC.NURSE ---
Dr Malloy notified @3848 this morning of pt c/o nausea. Pt had 2 episodes of vomiting. Orders received for Zofran 4mg IV Q8HR PRN. Order for general surgery consult also put in at this time. Pt has also c/o abdominal pain. Pt medicated PRN per AUG. Pt has had to empty ostomy bag multiple times since admission. Liquid stool noted. Ostomy bag changed multiple times since admission as well. Pt states she has a hard time getting bags to stick to her skin. NS infusing @75ml/hr. Pt is independent, tolerates ambulation well. Pt saturating approp on RA. A&OX4.
[2023-04-05 07:49] VITALS: BP 119/68; PULSE 79; RESP 18; TEMP 36.6; O2SAT 97
[2023-04-05 08:00] VITALS: O2SAT 98
--- NOTE | 2023-04-05 08:37 | HMH.PHAINT1 ---
Pharmacy Intervention Comments: MEDICATION RECONCILIATION COMPLETED ON PATIENT USING EXTERNAL FILL HISTORY FROM PHARMACY AND LIST FROM ONCOLOGY OFFICE. -TASHA SORENSEN, JESUS MANUELD
--- NOTE | 2023-04-05 08:49 | EXP.HP ---
History of Present Illness *Admission Date: 04/04/23 *Reason for visit:: Abdominal pain, vomiting *History of present illness: Ms. Lisa is a 67-year-old female with a history of stage IV colon cancer who currently has an ileostomy bag. She states she ate tomato soup yesterday at noon and took a nap. When she woke up, she was having severe upper abdominal pain that was radiating into her back. She put a heating pad on her back and went back to sleep. When she woke up again, she stated the pain was worse and she felt like she was sucker punched. She called her family and an ambulance transported her to the hospital. She began having nausea and heartburn. She did note that her ileostomy bag had not been functioning properly for the past few days and had had minimal output. She does take pain medications on a regular basis for nerve damage related to her colon cancer. She felt dehydrated and requested fluids in the emergency room. Work-up revealed a possible bowel obstruction and was contacted for transfer. She was placed on a waiting list and was admitted for conservative management while awaiting transfer. Of note, she is currently on chemotherapy and has completed 5 rounds. She has been off since March 08 due to an upcoming stoma revision which is scheduled for April 18 at . [facility] Disclaimer: The information contained in this section may have been updated after the patient was seen, as this information can be updated by other users. Medical History (Updated 04/05/23 @ 09:07 by LANCE Birch) Age-related osteoporosis without current pathological fracture Anxiety Cancer Colon cancer Diabetes mellitus History of breast cancer History of hypertension Lung nodule Osteoarthritis Thyroid cancer Surgical History (Updated 04/05/23 @ 09:00 by LANCE Birch) H/O bilateral mastectomy H/O thyroidectomy History of appendectomy History of bunionectomy of left great toe History of ileostomy Total knee replacement status Family History Coronary artery disease Hypertension Stroke Social History Smoking Status: Current every day smoker tobacco type: cigarettes packs per day: 1 alcohol intake: never current occupational status: other Travel in the last 8 weeks: None Review of Systems Constitutional Constitutional: Denies body ache(s), Denies chills, Reports fatigue, Denies fever(s), Denies headache(s), Reports malaise and Reports weakness Eyes Eyes: Denies blurry vision and Denies diplopia ENT Ears, Nose, Mouth, and Throat: Reports dry mouth, Denies headache(s), Denies nasal congestion, Denies sore throat and Denies vertigo *Cardiovascular Cardiovascular: Denies chest pain and Reports dyspnea *Respiratory Respiratory: Denies cough, Reports dyspnea and Denies wheezing *Gastrointestinal Gastrointestinal: Reports abdominal pain, Reports belching, Reports bloating, Reports change in stool character, Reports dyspepsia, Reports nausea and Reports vomiting *Genitourinary Genitourinary: Denies difficulty voiding and Denies dysuria *Musculoskeletal Musculoskeletal: Denies arthralgias and Reports back pain *Neurologic Neurologic: Denies headache(s), Denies vertigo and Reports weakness Endocrine Endocrine: Reports fatigue Allergic/Immunologic Allergic/Immunologic: Denies wheezing Meds Home Medications and Allergies Home Medications Medication Instructions Recorded Confirmed Type levothyroxine 200 mcg tablet 200 mcg PO DAILY Thyroid 03/08/23 04/05/23 History oxycodone-acetaminophen 5 mg-325 1 tab PO Q4HP PRN cancer pain 04/05/23 04/05/23 History mg tablet (Percocet) New Prescriptions to Start Prescriptions: Allergies Allergy/AdvReac Type Severity Reaction Status Date / Time No Known Allergies Allergy Verified 03/08/23 15:22 Exam Data for Last 24 hours Vital signs and Labs
--- NOTE | 2023-04-05 09:07 | PC.NURSE ---
Dr. Molina's office called about pt needing more nausea meds and made aware of her emesis x3.
--- NOTE | 2023-04-05 13:35 | EXP.SURG.CON ---
History of Present Illness *Admission Date: 04/04/23 *Reason for visit:: Bowel obstruction *History of present illness: Patient is a very pleasant 67-year-old female. She had been admitted in August of this year with abdominal pain and vomiting with distention. Evaluation at that time revealed large volume of ascites and paracentesis was negative for malignancy. CA125 was elevated. She ultimately was evaluated at [facility] in August of this year for bowel obstruction and underwent exploratory laparotomy on 09/25/[address] Gallegos at which time she was found to have extensive peritoneal disease and obstruction in the right colon. She did have resection and ileostomy. She therefore has known diagnosis of stage IV colon cancer with diffuse peritoneal carcinomatosis and ascites. Recently she had developed some significant upper abdominal pain radiating into her back and therefore was transported to the emergency department at [facility] in the very late evening of 04/04/2023. She had noted that she had had decreased output from her ileostomy over several days. She had symptoms consistent with symptomatic dehydration. Work-up in the emergency department revealed findings of possible bowel obstruction. CT angiogram of the abdomen and pelvis revealed diffuse small bowel dilatation with air-fluid levels extending to the level of the diverting ileostomy which could be due to an ileus or obstruction at the level of the ileostomy. There is note of mild hyperenhancement of the ileum just proximal to the ileostomy and mild increase in ascites. There is unchanged diffuse peritoneal carcinomatosis. Please see CT scan report for complete details and findings. [facility] was contacted for transfer. Patient was accepted but reportedly placed on waiting list and admitted for conservative management while awaiting transfer. She has had some problems with retraction of the ileostomy and she is scheduled for stoma revision on 04/18/2023 at [facility]. Patient apparently refusing nasogastric tube. Surgical consultation was ordered and I was contacted regarding consultation this afternoon. She is on a clear liquid diet. [facility] Disclaimer: The information contained in this section may have been updated after the patient was seen, as this information can be updated by other users. Medical History (Updated 04/05/23 @ 09:07 by LANCE Birch) Age-related osteoporosis without current pathological fracture Anxiety Cancer Colon cancer Diabetes mellitus History of breast cancer History of hypertension Lung nodule Osteoarthritis Thyroid cancer Surgical History (Updated 04/05/23 @ 09:00 by LANCE Birch) H/O bilateral mastectomy H/O thyroidectomy History of appendectomy History of bunionectomy of left great toe History of ileostomy Total knee replacement status Family History Coronary artery disease Hypertension Stroke Social History Smoking Status: Current every day smoker tobacco type: cigarettes packs per day: 1 alcohol intake: never current occupational status: other Travel in the last 8 weeks: None Review of Systems Constitutional Constitutional: Denies headache(s) and Reports weakness ENT Ears, Nose, Mouth, and Throat: Denies headache(s) and Denies vertigo *Neurologic Neurologic: Denies headache(s), Denies vertigo and Reports weakness Meds Home Medications and Allergies Home Medications Medication Instructions Recorded Confirmed Type levothyroxine 200 mcg tablet 200 mcg PO DAILY Thyroid 03/08/23 04/05/23 History oxycodone-acetaminophen 5 mg-325 1 tab PO Q4HP PRN cancer pain 04/05/23 04/05/23 History mg tablet (Percocet) New Prescriptions to Start Prescriptions: Allergies Allergy/AdvReac Type Se
--- OUTSIDE RECORDS SUMMARY | 2023-04-05 14:49 | XMS_ITS | Continuity of Care Document ---
Author Name Unknown Address [address] [place], [place] [id number] Organization [facility] Phone Care Team Providers Care Food Service Hotel Runner Name Role Phone KARINE ROWAN Primary Attending GABBY KEITH Primary Care KARINE ROWAN Admitting KARINE ROWAN Unavailable RESULTS Patient: MARGY Ryan Date of : [birth year] 6 LABORATORY RESULTS ORDER 200: THYROID STIMULATI NG HORMONE (LOINC: 3016-3) ORDER DATE: April 03, 2023 3:27:00 PM UTC Specimen Source: Serum/Plasm a PERFORMING LAB: [address] [id number] Result Comment: Final Result Date: April 03, 2023 3:56:00 PM UTC (TECH: RJV) LOINC TEST FLAG RESULT REFERENCE RANGE UPDA JAMI BY 3016-3 Thyrotropin [Units/volume] in Serum or Plasma L 0.30 mIU/mL 0.34 mIU/mL - 4.80 mIU/mL April 03, 2023 3:56:00 PM UTC (TECH: RJV) ORDER 300: T4 FREE (LOINC: 3 024-7) ORDER DATE: April 03, 2023 3:27:00 PM UTC Specimen Source: Serum/Plasm a PERFORMING LAB: [address] [id number] Result Comment: Final Result Date: April 03, 2023 3:56:00 PM UTC (TECH: RJV) LOINC TEST FLAG RESULT REFERENCE RANGE UPDA JAMI BY 3024-7 Thyroxine (T4) free [Mass/volume] in Serum or Plasma H 1.84 ng/dl 0.76 ng/dl - 1.46 ng/dl April 03, 2023 3:56:00 PM UTC (TECH: MARCOS)
--- OUTSIDE RECORDS SUMMARY | 2023-04-05 14:49 | XMS_ITS | Summary of Care ---
Author Name Unknown Organization [facility] Address [address] [place] [address]- Care Team Providers Care Space Planner Name Role Phone Gustavo Molina Primary Care Physician Unavailab le Encounter 10/09/22 - 10/17/22 [facility] [address] [place] [address] Discharge Disposition: Home with Home Health Care Attending Physician: Deny Steel MD Admitting Physician: Deny Steel MD Allergies, Adverse Reactions, Alerts Substance Reaction Severity Status No Known Allergies Active Medications acetaminophen 500 mg oral tablet 500 mg = 1 tab, Tab, Oral, TID PRN, 0 Refill(s), PAIN (Scale 1-10) Start Date: 10/17/22 Status: Ordered enoxaparin 40 mg/0.4 mL injectable solution 40 mg, = 0.4 mL, Soln-Inj, Subcutaneous, Daily, 4.8 mL, 0 Refill(s), Dispense: 12 day, Stop date 10/29/22 9:54:00 EDT, Route to Pharmacy Electronically, [id number], [id number], 10/15/22 18:06:00 EDT, Height/Length Dosing, cm, 61.1, Weight Dosing, 0... Start Date: 10/17/22 Stop Date: 10/29/22 Status: Ordered FiberCon 625 mg = 1 tab, Tab, Oral, Daily, 0 Refill(s) Start Date: 10/17/22 Status: Ordered levothyroxine 175 mcg (0.175 mg) oral tablet 175 mcg = 1 tab, Tab, Oral, Daily, 30 tab, 0 Refill(s), Route to Pharmacy Electronically, [facility], 157, 10/15/22 18:06:00 EDT, Height/Length Dosing, cm, 61.1, 10/15/22 18:06:00 EDT, Weight Dosing, kg Start Date: 10/17/22 Status: Ordered loperamide 2 mg oral capsule 2 mg = 1 cap, Cap, Oral, TID PRN, 0 Refill(s), Other (see comment) Start Date: 10/17/22 Status: Ordered metoprolol succinate 25 mg oral tablet, extended release 50 mg = 2 tab, Tab-ER, Oral, Daily, 60 tab, 0 Refill(s), Route to Pharmacy Electronically, [facility], 157, 10/15/22 18:06:00 EDT, Height/Length Dosing, cm, 61.1, 10/15/22 18:06:00 EDT, Weight Dosing, kg Start Date: 10/17/22 Status: Ordered NovoLOG STANDARD Sliding Scale Insulin Standard, Indication: Hyperglycemia, Subcutaneous, Start date 10/15/22 17:00:00 EDT, For BS <200= 0 units BS 200-250 = 2 units BS 251-300 = 4 units BS 301-350 = 6 units BS >350 = 8 units and call MD Start Date: 10/15/22 Stop Date: 10/15/22 Status: Completed NovoLOG STANDARD Sliding Scale Insulin Standard, Indication: Hyperglycemia, Subcutaneous,
--- OUTSIDE RECORDS SUMMARY | 2023-04-05 14:49 | XMS_ITS | Continuity of Care Document ---
Author Name Unknown Address [address] [place], [place] [id number] Organization [facility] Phone Care Team Providers Care Infantryman Name Role Phone KARINE ROWAN Primary Attending GABBY KEITH Primary Care KARINE ROWAN Admitting KARINE ROWAN Unavailable RESULTS Patient: MARGY Ryan Date of : [birth year] 6 LABORATORY RESULTS ORDER 200: THYROID STIMULATI NG HORMONE (LOINC: 3016-3) ORDER DATE: April 03, 2023 3:27:00 PM UTC Specimen Source: Serum/Plasm a PERFORMING LAB: [address] [id number] Result Comment: Final Result Date: April 03, [...] UTC Specimen Source: Serum/Plasm a PERFORMING LAB: [address] [id number] Result Comment: Final Result Date: April 03, 2023 3:56:00 PM UTC (TECH: RJV) LOINC TEST FLAG RESULT REFERENCE RANGE UPDA JAMI BY 3024-7 Thyroxine (T4) free [Mass/volume] in Serum or Plasma H 1.84 ng/dl 0.76 ng/dl - 1.46 ng/dl April 03, 2023 3:56:00 PM UTC (TECH: MARCOS)
[2023-04-05 16:00] VITALS: BP 109/55; PULSE 73; RESP 18; TEMP 37.2; O2SAT 99
[2023-04-05 19:49] VITALS: BP 121/59; PULSE 83; RESP 18; TEMP 38; O2SAT 99
[2023-04-05 20:15] VITALS: TEMP 37.4
[2023-04-06 04:00] VITALS: BP 114/56; PULSE 94; RESP 18; TEMP 38.4; O2SAT 96; BMI 24.5
[2023-04-06 08:00] VITALS: BP 126/63; PULSE 87; RESP 18; TEMP 37.6; O2SAT 96
--- NOTE | 2023-04-06 08:39 | EXP.ACUTE.PN ---
Subjective *Date: 04/06/23 *Time: 08:39 Interval history: Patient denies any pain today. She states her ostomy bag has been leaking. She does not want to eat until she can get another bag. Has not had much output except for some small liquid stools. Has been sleeping most of the day and night. Medical Exam Vital signs and Labs for Last 24 Hours: Vital Signs Temp Pulse Resp BP Pulse Ox O2 Del Method 04/06/23 08:00 99.6 F 87 18 126/63 96 Room Air 04/06/23 04:00 101.1 F H 94 H 18 114/56 L 96 Room Air 04/05/23 20:15 99.4 F 04/06/23 06:48 Room Air 04/06/23 05:00 Room Air 04/06/23 03:00 Room Air 04/06/23 01:00 Room Air 04/05/23 23:00 Room Air 04/05/23 21:00 Room Air 04/05/23 20:00 Room Air 04/05/23 19:49 100.4 F H 83 18 121/59 L 99 Room Air 04/05/23 18:51 Room Air 04/05/23 16:39 Room Air 04/05/23 14:52 Room Air 04/05/23 16:00 98.9 F 73 18 109/55 L 99 Room Air 04/05/23 12:43 Room Air 04/05/23 11:00 Room Air 04/05/23 09:00 Room Air Intake and Output 04/05/23 04/06/23 04/06/23 19:59 03:59 11:59 Intake Total 1175 / 1925 750 / 1925 Output Total 0 / 0 0 / 0 0 / 0 Balance 1175 / 1925 750 / 1925 0 / 1925 Intake: Intake, Oral Amount 0 / 150 150 / 150 Intake, Total IV Amount 1175 / 1775 600 / 1775 0.9 % Sodium Chloride 1000ML 1, 1175 / 1775 600 / 1775 000 ml @ 125 mls/hr IV .Q8H [facility] Rx#:[id number] Output: Output, Urine Amount 0 / 0 0 / 0 0 / 0 Other: Number of Voids 1 0 Number of Unmeasured Voids 0 1 Number of Bowel Movements 1 Weight 133 lb 1.6 oz Patient Weight 10/06/23 11:59 Weight 133 lb 1.6 oz I & O for Labs for Last 24 Hours: Intake & Output 04/03/23 04/04/23 04/05/23 04/06/23 11:59 11:59 11:59 11:59 Intake Total 422 / 422 1924 Output Total 500 / 500 0 / 0 Balance -78 / -78 1924 Weight 131 lb 15.993 oz 133 lb 1.6 oz Constitutional: Present no acute distress Respiratory: Present CTA bilaterally Cardiac: Present Reg Rate and Rhythm GI: Present soft, tenderness (around ostomy) and diminished bowel sounds; Absent distention, guarding or rigidity Comments:: ostomy bag is not sealed well and stool is leaking on the surrounding skin, a towel was placed under it Extremities: Absent tenderness or edema Skin: Present intact Neuro: Present alert, awake and oriented x 3 Assessment and Plan *Assessment and plan (1) Abdominal pain: Status: Acute Category: Medical Code(s): R10.9 - Unspecified abdominal pain (2) Bowel obstruction: Status: Acute Category: Medical Code(s): K56.609 - Unspecified intestinal obstruction, unspecified as to partial versus complete obstruction (3) Peritoneal carcinomatosis: Status: Acute Category: Medical Code(s): C78.6 - Secondary malignant neoplasm of retroperitoneum and peritoneum (4) Abdominal ascites: Status: Chronic Qualifiers: Ascites type: malignant Qualified Code(s): R18.0 - Malignant ascites Category: Medical Code(s): R18.8 - Other ascites (5) Multiple pulmonary nodules: Status: Chronic Category: Medical Code(s): R91.8 - Other nonspecific abnormal finding of lung field (6) 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 Has been given clear liquids but she will not drink them
--- NOTE | 2023-04-06 09:38 | PC.NURSE ---
[place] updated on Pt.
--- NOTE | 2023-04-06 10:09 | XR_ITS ---
FINAL REPORT CLINICAL HISTORY: ileus/obstruction FINDINGS: Chest: Single view was obtained. A right-sided chest port is present. The heart and mediastinum are within normal limits. There is mild bibasilar atelectasis or scarring. There is no pneumothorax. Abdomen: 2 views were obtained. There are scattered air-fluid levels in a nonspecific pattern which may represent ileus or enteritis. There is no free air. There are no abnormal calcifications. IMPRESSION: Scattered air-fluid levels in a nonspecific pattern may represent ileus or enteritis. Reviewed, Interpreted and Dictated by Marco Herrera III, MD Transcribed by Nidia Bhatia Authenticated and [facility]
[2023-04-06 11:19] LABS: Alanine Aminotransferase 15 U/L (12-78); Albumin Level 3.3 g/dl (3.5-5.0); Albumin/Globulin Ratio 1.1 (1.1-1.8); Alkaline Phosphatase 84 U/L (38-126); Anion Gap 7.4 mEq/L (5-15); Aspartate Amino Transferase 19 U/L (14-36); Bilirubin,Total 0.8 mg/dl (0.2-1.3); Blood Urea Nitrogen 10 mg/dl (7-17); Calcium 8.3 mg/dl (8.4-10.2); Carbon Dioxide 26 mmol/L (22.0-30.0); Chloride 106 mmol/L (98-107); Creatinine Clearance Estimated 51 mL/min (50-200); Estimated Glomerular Filt Rate 62 ml/min (>60); GFR (African American) 75 ML/MIN (>60); Globulin 2.9 g/dL (1.3-3.2); Glucose 124 mg/dl (74-100); Potassium 3.4 mmoL/L (3.5-5.1); Sodium 136 mmol/L (136-145); Total Protein,Serum 6.2 g/dl (6.3-8.2)
[2023-04-06 11:34] LABS: Basophils % 0.2 % (0.1-2.0); Eosinophils % 0.7 % (0.1-12.0); Hemoglobin 10.4 g/dL (12.2-16.2); Lymphocytes # 0.3 K/mm3 (0.7-4.5); Lymphocytes % 12.5 % (10-50); Mean Corpuscular HGB Conc 33.5 g/dL (31.8-35.4); Mean Corpuscular Hemoglobin 29.9 pg (27.0-31.2); Mean Corpuscular Volume 89.1 fl (81-99); Mean Platelet Volume 9.2 fl (7.4-10.4); Monocytes # 0.2 K/mm3 (0.1-1.0); Monocytes % 8.4 % (1.7-9.3); Neutrophils # 1.8 K/mm3 (1.8-7.8); Neutrophils % 78.2 % (37.0-80.0); Platelet Count 153 K/mm3 (142-424); Red Blood Count 3.49 M/mm3 (4.20-5.40); Red Cell Distribution Width 13.7 % (11.5-17.5); White Blood Count 2.3 K/mm3 (4.8-10.8)
[2023-04-06 11:59] VITALS: BMI 24.4
--- NOTE | 2023-04-06 13:12 | PC.NURSE ---
MD notified via office that pt is c/o sharp pain with rating of 7. Reglan and tylenol administered.
[2023-04-06 13:58] LABS: Coronavirus 19, PCR Not Detected (NotDetected); Influenza A, PCR Not Detected (NotDetected); Influenza B, PCR Not Detected (NotDetected)
--- NOTE | 2023-04-06 15:23 | P.PN_ITS ---
Subjective Narrative: Patient has had some more abdominal discomfort and pain. Has had issues with keeping an ostomy appliance in place due to the nature of her ostomy as there is leakage. Developed fever this morning. Exam Data for Last 24 hours Vital signs and Labs for Last 24 Hours: Temp Pulse Resp BP Pulse Ox O2 Del Method 99.6 F 87 18 126/63 96 Room Air 04/06/23 08:00 04/06/23 08:00 04/06/23 08:00 04/06/23 08:00 04/06/23 08:00 04/06/23 12:54 Laboratory Results - last 24 hr 04/06/23 10:42: Sodium 136, Potassium 3.4 L, Chloride 106, Carbon Dioxide 26, Anion Gap 7.4, BUN 10 D, Creatinine 0.90, Estimated Creat Clear 51, Estimated GFR 62, Est GFR ( Amer) 75, Glucose 124 H, Calcium 8.3 L, Total Bilirubin 0.8, AST 19 D, ALT 15 D, Alkaline Phosphatase 84, Total Protein 6.2 L, Albumin 3.3 L, Globulin 2.9, Albumin/Globulin Ratio 1.1 04/06/23 10:48: WBC 2.3 L D, RBC 3.49 L, Hgb 10.4 L, Hct 31.0 L, MCV 89.1, MCH 29.9, MCHC 33.5, RDW 13.7, Plt Count 153 D, MPV 9.2, Neut % (Auto) 78.2, Lymph % (Auto) 12.5, Estill % (Auto) 8.4, Eos % (Auto) 0.7, Baso % (Auto) 0.2, Neut # (Auto) 1.8, Lymph # (Auto) 0.3 L, Estill # (Auto) 0.2, Eos # (Auto) 0.0, Baso # (Auto) 0.0 I & O for Last 24 hours: Intake & Output 04/04/23 04/05/23 04/06/23 04/07/23 11:59 11:59 11:59 11:59 Intake Total 422 / 422 1924 Output Total 500 / 500 0 / 0 0 / 0 Balance -78 / -78 1924 0 / 0 Weight 131 lb 15.993 oz 132 lb 15.02 oz Constitutional Comments: Currently resting *Routine Abdominal Exam Abdominal: Present distended Progress Note: A&P Assessment and plan (1) Abdominal pain: Status: Acute (2) Bowel obstruction: Status: Acute Assessment and plan: Awaiting bed availability at [facility] for definitive surgical management. Concerning that this could become more of an urgent issue with her development of fevers and increasing abdominal discomfort. Recommend expeditious transfer. 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
[2023-04-06 16:00] VITALS: BP 109/42; PULSE 79; RESP 17; TEMP 37.7; O2SAT 95
--- NOTE | 2023-04-06 17:55 | PC.NURSE ---
Pt has a bed at [facility] Room [address]. MD Costa is accepting physician.
--- NOTE | 2023-04-06 18:01 | PC.NURSE ---
notified of accepting Physician and hospital.
--- NOTE | 2023-04-06 18:17 | PC.NURSE ---
Report called to Travis at [facility]
[2023-04-06 19:56] VITALS: BP 140/66; PULSE 86; RESP 18; TEMP 37.8; O2SAT 98
--- NOTE | 2023-04-06 20:19 | PC.NURSE ---
pt empty ostomy at toilet, amount unmeasured.
--- NOTE | 2023-04-06 20:34 | PC.NURSE ---
Patient updated that we are waiting for transport. She is not happy about the wait; however, she stated she understood. Patient has no needs or other concerns at this time. Ostomy device was changed r/t leakage noted.
--- NOTE | 2023-04-06 23:16 | PC.NURSE ---
Patient resting after pain medication prior- see AUG. Did not disturb her at this time
--- NOTE | 2023-04-07 02:39 | PC.NURSE ---
Patient updated that we are still awaiting transport to [facility]. She is understanding, but still agitated about waiting.
--- NOTE | 2023-04-07 03:29 | PC.NURSE ---
Addendum entered by Souleymane Eastman RN 04/07/23 03:32: Phone number used was [phone] Original Note: EMS is here for transport to , [facility]. I've attempted to reach the unit patient is going to; however, there hasn't been anyone to pickup my call. EMS notified of this.
--- NOTE | 2023-04-16 20:41 | EXP.DC.SUM ---
General Admission date:: 04/04/23 Discharge date: 04/06/23 HPI HPI HPI: Ms. Lisa is a 67-year-old female with a history of stage IV colon cancer who currently has an ileostomy bag. She states she ate tomato soup yesterday at noon and took a nap. When she woke up, she was having severe upper abdominal pain that was radiating into her back. She put a heating pad on her back and went back to sleep. When she woke up again, she stated the pain was worse and she felt like she was sucker punched. She called her family and an ambulance transported her to the hospital. She began having nausea and heartburn. She did note that her ileostomy bag had not been functioning properly for the past few days and had had minimal output. She does take pain medications on a regular basis for nerve damage related to her colon cancer. She felt dehydrated and requested fluids in the emergency room. Work-up revealed a possible bowel obstruction and was contacted for transfer. She was placed on a waiting list and was admitted for conservative management while awaiting transfer. Of note, she is currently on chemotherapy and has completed 5 rounds. She has been off since March 08 due to an upcoming stoma revision which is scheduled for April 18 at . Hospital Course Hospital Course Hospital Course: The patient's abdominal/pelvic CT showed ileus versus obstruction at the level of her ileostomy. There was also mild increase in ascites. There was bilateral ovarian enlargement which could be due to metastatic disease and a new 4.4 cm cystic structure that had developed along the superior aspect of the uterus. The patient was kept n.p.o. and started on IV fluids, pain medication, and antiemetics. She refused the NG tube and surgery was consulted. She was seen by Dr. Patterson who felt she would need transfer to for definitive management. She was given clear liquids. She had a repeat abdominal x-ray showing air-fluid levels. She was excepted for transfer and was discharged to for further evaluation and treatment. Exam Data for Last 24 hours Vital signs and Labs for Last 24 Hours: Temp Pulse Resp BP Pulse Ox O2 Del Method 100.0 F H 86 18 140/66 98 Room Air 04/06/23 19:56 04/06/23 19:56 04/06/23 19:56 04/06/23 19:56 04/06/23 19:56 04/07/23 02:38 Narrative: Constitutional Constitutional: no acute distress *Routine HEENT Exam Head: Present normocephalic Eye: Present PERRL ENT: Present mucous membranes dry *Routine Neck Exam Neck: Present full ROM; Absent JVD, carotid bruit or tracheal deviation Routine Chest/Breast/Axilla Exam Chest wall: Absent tenderness or mass Breast: Present scars and right mastectomy; Absent tenderness Axillae: Absent lymphadenopathy *Routine Respiratory Exam Respiratory: Present CTA bilaterally, able to speak in complete sentences and symmetric chest movement; Absent respiratory distress *Routine Cardiovascular Exam Cardiovascular: Present RRR; Absent murmur or rubs *Routine Abdominal Exam Abdominal: Present soft, tenderness (epigastric area and around stoma), distended and ostomy (with some irritation of skin around the ostomy); Absent normoactive bowel sounds (hypoactive), rebound or guarding *Routine Rectal Exam Rectal:: deferred *Routine Genitalia Exam Genitalia:: deferred *Routine Extremities Exam Extremities: Absent cyanosis, clubbing or edema Routine Back/Spine/Pelvis Exam Back/Spine: Present scoliosis Pelvis: Present buttock tenderness and SI joint tenderness *Routine Skin Exam Skin: Present intact; Absent cyanosis Comments: Tattoo of the left breast area *Routine Neurological Exam Neurological: Present alert, oriented X3 and CN II-XII intact DS: Diagnosis Discharge Diagnosis (1) Abdominal pain: Status: Acute Code(s): R10.9 - Unspecified abdominal pain (2) Bowel obstruction: Status: Acute Code(s): K56.609 - Unspecified intestinal obstruction, unspecified as
== END 2023-04-07 03:34 | disposition short-term general hospital (02) | DRG 389 ==
LOC: ER 21:05 → 2ND 04-05 02:32
PROVIDERS: Physician Assistant; Admitting Provider Family Medicine; Emergency Provider Emergency Medicine; PCP Family Medicine; Visit Provider Family Medicine
DX: K56.609 Unspecified intestinal obstruction, unspecified as to partial versus complete obstruction (principal); C18.9 Malignant neoplasm of colon, unspecified; C77.2 Secondary and unspecified malignant neoplasm of intra-abdominal lymph nodes; C78.6 Secondary malignant neoplasm of retroperitoneum and peritoneum; R18.0 Malignant ascites; N85.8 Other specified noninflammatory disorders of uterus; Z85.3 Personal history of malignant neoplasm of breast; F17.210 Nicotine dependence, cigarettes, uncomplicated; Z85.850 Personal history of malignant neoplasm of thyroid
CPT/HCPCS: 36415; 74021; 74174; 80048; 80053; 83690; 84484; 85025; 87040; 87636; 93005; 99285; J2405; Q9967

== ENCOUNTER 2023-04-23 15:05 | Outpatient (CLI) | payer MEDICARE, SELFPAY ==
[2023-04-23 15:27] VITALS: BP 96/65; PULSE 93; RESP 20; TEMP 36.6; O2SAT 97
[2023-04-23 15:57] VITALS: BP 102/69; PULSE 91; RESP 20; O2SAT 97
[2023-04-23 16:28] VITALS: BP 108/62; PULSE 88; RESP 20; O2SAT 97
== END 2023-04-23 16:33 | disposition home or self-care (01) ==
LOC: INF 15:06
PROVIDERS: PCP Family Medicine; Visit Provider Internal Medicine Medical Oncology
DX: E86.0 Dehydration (principal)
CPT/HCPCS: 96365; J1642

== ENCOUNTER 2023-04-27 06:08 | Emergency (ER) | payer MEDICARE, SELFPAY ==
[2023-04-27] VITALS (11 sets, daily range): BP systolic 118–165; BP diastolic 71–92; PULSE 68–107; RESP 10–20; TEMP 36.6–36.9; O2SAT 96–100; BMI 29.2
--- NOTE | 2023-04-27 06:16 | CT_ITS ---
FINAL REPORT CLINICAL HISTORY: cp, sob, tachy, cancer COMPARISON: 03/02/2023 FINDINGS: Thin section axial CT images of the chest were obtained with contrast. 3D reformatted images were also obtained. This study was performed with techniques to keep radiation doses as low as reasonably achievable (ALARA). Individualized dose reduction techniques using automated exposure control or adjustment of mA and/or kV according to the patient''s size were employed. There is no evidence of pulmonary embolism. There is no evidence of thoracic aortic aneurysm or dissection. Right jugular port is present. There are borderline sized mediastinal nodes which are stable. There is a 16 mm left lung base nodule which is stable, likely represents pulmonary metastases. Mild right base atelectasis or scar is identified. IMPRESSION: No evidence of pulmonary embolism. Stable left lung base nodule, likely represents pulmonary metastasis. Reviewed, Interpreted and Dictated by Marco Herrera III, MD Transcribed by Carole Larios Authenticated and [facility]
--- NOTE | 2023-04-27 06:16 | CT_ITS ---
FINAL REPORT CLINICAL HISTORY: abd pain/n/v. hx colon cx COMPARISON: 04/04/2023 FINDINGS: CT OF THE ABDOMEN AND PELVIS WITH CONTRAST Axial CT images of the abdomen and pelvis were obtained after the administration of IV contrast. Coronal reformatted images were also obtained and reviewed. This study was performed with techniques to keep radiation doses as low as reasonably achievable (ALARA). Individualized dose reduction techniques using automated exposure control or adjustment of mA and/or kV according to the patient's size were employed. Abdomen: The 16 mm nodule at the left lung base is stable but worrisome for metastasis. The heart is normal in size. The liver has an unremarkable appearance, without evidence of mass or biliary ductal dilatation. The gallbladder is collapsed with wall thickening. The spleen is unremarkable. No adrenal mass is present. The pancreas has an unremarkable appearance. The kidneys are normal, without evidence of mass or hydronephrosis. The aorta is normal in caliber. There is a small amount of ascites which has partially improved from prior. There are persistently dilated fluid-filled small bowel loops with widespread wall thickening which may be inflammatory versus metastatic disease. There are stable areas of soft tissue in the abdomen consistent with peritoneal metastatic disease. Stable T9 sclerosis which is nonspecific. Pelvis: The appendix is not well-visualized. The urinary bladder is unremarkable. There is a heterogeneous mass in the right iliac fossa measuring measuring 4.7 x 4.0 cm which is stable and consistent with metastases. There is stable bilateral ovarian enlargement likely representing metastatic disease. There is a partially cystic mass in the midline of the pelvis which is stable. IMPRESSION: Overall stable metastatic disease of the abdomen and pelvis. Persistent improved ascites. Slightly worsened small bowel wall thickening may be inflammatory versus diffuse metastatic disease. Reviewed, Interpreted and Dictated by Marco Herrera III, MD Transcribed by Lilia Sebastian Authenticated and [facility]
--- NOTE | 2023-04-27 06:21 | HMH.EDGENADL ---
Discharge Plan Disposition Patient Disposition: Xfer Short-Term Hosp Prescriptions Prescriptions: No Action levothyroxine 200 mcg tablet 200 mcg PO DAILY Patient Comments: TAKE 1 TABLET BY MOUTH ONCE DAILY IN THE MORNING ON AN EMPTY STOMACH Clinical Impressions Clinical Impression: Alkalosis, metabolic, Acute dehydration, CHRISTIANO (acute kidney injury), Acute hypokalemia, Metastatic disease Discharge ED Provider: Gene Graf General Adult HPI <Santiago yL MD - Last Filed: 04/27/23 07:06> General Chief complaint: Abdominal Pain Stated complaint: N/V Time Seen by Provider: 04/27/23 06:15 Mode of Arrival: EMS Source of Information: Patient Limitations: No Limitations Description of Symptoms (Recalled from ER Triage Doc. by RN): pt states she has stage 4 colon cancer and was admitted 2 weeks ago for SBO and transfer to . pt c/o unable to eat since sunday and n/v History of Present Illness HPI narrative: 67-year-old female, history of stage IV colon cancer with peritoneal carcinomatosis status post resection, recently stopped chemotherapy, recent admission and transfer to the [facility] for bowel obstruction presents for worsening abdominal pain, nausea vomiting, p.o. intolerance. She reports that her ostomy has still had some output but less than normal. She reports chest pain and shortness of breath, not significantly different from normal. She reports no fevers at home. She reports that she was supposed to have an ostomy revision at , but they elected not to perform the revision. Related Data Home Medications Medication Instructions Recorded Confirmed levothyroxine 200 mcg tablet 200 mcg PO DAILY Thyroid 03/08/23 04/23/23 Allergies Allergy/AdvReac Type Severity Reaction Status Date / Time No Known Allergies Allergy Verified 04/23/23 15:32 PFS <Santiago Ly MD - Last Filed: 04/27/23 07:06> [facility] Disclaimer: The information contained in this section may have been updated after the patient was seen, as this information can be updated by other users. Medical History (Updated 04/27/23 @ 10:46 by Gene Graf MD) Age-related osteoporosis without current pathological fracture Anxiety BMI 32.0-32.9,adult Cancer Colon cancer Diabetes mellitus Dizziness History of breast cancer History of hypertension Lung nodule Osteoarthritis Thyroid cancer Surgical History H/O bilateral mastectomy H/O thyroidectomy History of appendectomy History of bunionectomy of left great toe History of ileostomy Total knee replacement status Family History Coronary artery disease Hypertension Stroke Social History (Updated 04/23/23 @ 15:19 by Luther Buckley, RN) Smoking Status: Never smoker alcohol intake: never current occupational status: disabled and other Travel in the last 8 weeks: None <Santiago Ly MD - Last Filed: 04/27/23 07:06> ROS Obtained: Yes All systems reviewed & no additional complaints except as documented Physical Exam <Santiago Ly MD - Last Filed: 04/27/23 07:06> General General appearance: alert and in distress Head Head exam: atraumatic and normocephalic Eye Eye exam: Present normal appearance, PERRL and EOMI ENT ENT exam: Present normal oropharynx and normal external ear exam Neck Neck exam: Present normal inspection and full ROM Chest Chest inspection: Present normal inspection and symmetric chest wall rise; Absent tenderness Respiratory Respiratory exam: Present normal lung sounds bilaterally; Absent respiratory distress Cardiovascular Cardiovascular exam: Present normal rhythm and tachycardia Abdominal Exam Abdominal exam: Present distention and tenderness (Diffusely tender); Absent guarding Comment: Ostomy with nonbloody output noted Extremities Exam Extremities exam: Present normal inspection; Absent edema or joint swellin
[2023-04-27 06:34] LABS: Basophils % 0.4 % (0.1-2.0); Eosinophils # 0.1 K/mm3 (0.0-0.4); Hematocrit 42.9 % (37.0-47.0); Hemoglobin 14.9 g/dL (12.2-16.2); Lymphocytes # 0.9 K/mm3 (0.7-4.5); Lymphocytes % 13.3 % (10-50); Mean Corpuscular HGB Conc 34.8 g/dL (31.8-35.4); Mean Corpuscular Hemoglobin 29.2 pg (27.0-31.2); Mean Corpuscular Volume 83.9 fl (81-99); Mean Platelet Volume 9.2 fl (7.4-10.4); Monocytes # 0.4 K/mm3 (0.1-1.0); Monocytes % 6.6 % (1.7-9.3); Neutrophils # 5.3 K/mm3 (1.8-7.8); Neutrophils % 78.6 % (37.0-80.0); Platelet Count 311 K/mm3 (142-424); Red Blood Count 5.11 M/mm3 (4.20-5.40); Sodium 131 mmol/L (136-145); White Blood Count 6.7 K/mm3 (4.8-10.8)
[2023-04-27 06:35] LABS: Potassium 3.3 mmoL/L (3.5-5.1)
[2023-04-27 06:37] LABS: Alanine Aminotransferase 20 U/L (12-78); Albumin Level 4.9 g/dl (3.5-5.0); Albumin/Globulin Ratio 1.3 (1.1-1.8); Alkaline Phosphatase 104 U/L (38-126); Aspartate Amino Transferase 26 U/L (14-36); Bilirubin,Total 1.1 mg/dl (0.2-1.3); Blood Urea Nitrogen 28 mg/dl (7-17); Calcium 10.1 mg/dl (8.4-10.2); Creatinine Clearance Estimated 30 mL/min (50-200); Estimated Glomerular Filt Rate 25 ml/min (>60); GFR (African American) 30 ML/MIN (>60); Globulin 3.8 g/dL (1.3-3.2); Glucose 218 mg/dl (74-100); Lipase 91 U/L (23-300); Total Protein,Serum 8.7 g/dl (6.3-8.2)
[2023-04-27 06:49] LABS: Troponin I < 0.01 ng/ml (0.00-0.034)
[2023-04-27 06:50] LABS: Anion Gap 20.3 mEq/L (5-15); Carbon Dioxide 44 mmol/L (22.0-30.0)
[2023-04-27 06:52] LABS: Chloride 70 mmol/L (98-107)
--- NOTE | 2023-04-27 06:54 | PC.NURSE ---
notified of critical chloride of 68
[2023-04-27 07:04] LABS: VBG Base Excess 17.4 mmol/L (-2.4-2.3); VBG HCO3 37.6 mmol/L (23-30); VBG Oxygen Saturation 98.7 % (50-70); VBG PCO2 32.3 mmol/L (35-51); VBG PO2 100.3 mmol/L (28-40); VBG Total CO2 38.6 mmol/L (23-27)
[2023-04-27 07:08] LABS: VBG PH 7.68 mmol/L (7.31-7.41)
--- NOTE | 2023-04-27 07:15 | PC.NURSE ---
Dr. Graf at bedside
--- NOTE | 2023-04-27 07:22 | HMH.ITSTN ---
I spoke with ER nurse regarding patients current labs. GFR is below our protocol, they will let us know to continue or discontinue the exam.
--- NOTE | 2023-04-27 07:34 | PC.NURSE ---
Dr Graf advised to ct pt , rad advised
--- NOTE | 2023-04-27 07:41 | PC.NURSE ---
pt requesting ice chips, confirmed with Dr. Graf she could have these he states it was ok. Ice chips given to pt, Lab at bedside for CMP re-collect.
--- NOTE | 2023-04-27 08:04 | PC.NURSE ---
Pt arrived back to room from CT
[2023-04-27 08:09] LABS: Alanine Aminotransferase 17 U/L (12-78); Albumin Level 4.4 g/dl (3.5-5.0); Albumin/Globulin Ratio 1.4 (1.1-1.8); Alkaline Phosphatase 86 U/L (38-126); Aspartate Amino Transferase 23 U/L (14-36); Blood Urea Nitrogen 27 mg/dl (7-17); Calcium 9.5 mg/dl (8.4-10.2); Creatinine Clearance Estimated 36 mL/min (50-200); Estimated Glomerular Filt Rate 30 ml/min (>60); GFR (African American) 36 ML/MIN (>60); Globulin 3.1 g/dL (1.3-3.2); Glucose 182 mg/dl (74-100); Sodium 130 mmol/L (136-145); Total Protein,Serum 7.5 g/dl (6.3-8.2)
[2023-04-27 08:10] LABS: Anion Gap 14.8 mEq/L (5-15); Carbon Dioxide 45 mmol/L (22.0-30.0)
[2023-04-27 08:11] LABS: Chloride 73 mmol/L (98-107); Potassium 2.8 mmoL/L (3.5-5.1)
--- NOTE | 2023-04-27 08:21 | PC.NURSE ---
pt had a bm and urine output(unmeasured) pt was Cleaned up with Eulalio hsieh new stetcher sheet,samreen brief and warm blanket no other needs
[2023-04-27 10:20] LABS: Reflex Lactic Add Lactic Reflex
--- NOTE | 2023-04-27 10:26 | PC.NURSE ---
called rad to [employer] to [employer] and burn a disc
--- NOTE | 2023-04-27 10:34 | PC.NURSE ---
placed call to [facility] for oncology for transfer.
--- NOTE | 2023-04-27 10:40 | PC.NURSE ---
faxed facesheet to [facility]
--- NOTE | 2023-04-27 10:41 | PC.NURSE ---
Dr Graf speaking with [facility]
--- NOTE | 2023-04-27 11:21 | PC.NURSE ---
Report called to [facility] ER.
--- NOTE | 2023-04-27 11:34 | PC.NURSE ---
EMS here for pt transport
== END 2023-04-27 11:35 | disposition short-term general hospital (02) ==
PROVIDERS: Emergency Medicine; Emergency Provider Emergency Medicine; PCP Family Medicine
DX: E87.3 Alkalosis (principal); E87.6 Hypokalemia; E86.0 Dehydration; E87.1 Hypo-osmolality and hyponatremia; R10.9 Unspecified abdominal pain; R11.2 Nausea with vomiting, unspecified; N17.9 Acute kidney failure, unspecified; C79.9 Secondary malignant neoplasm of unspecified site
CPT/HCPCS: 71275; 74177; 80053; 82803; 83605; 83690; 83735; 84484; 85025; 96361; 96365; 96366; 96375; 99291; J2405; Q9967

== ENCOUNTER 2023-05-02 08:57 | Outpatient (CLI) | payer MEDICARE, SELFPAY ==
[2023-05-02 09:02] VITALS: BMI 23.0
[2023-05-02 09:20] LABS: Basophils % 0.2 % (0.1-2.0); Eosinophils # 0.1 K/mm3 (0.0-0.4); Eosinophils % 1.8 % (0.1-12.0); Hematocrit 38.4 % (37.0-47.0); Hemoglobin 13.2 g/dL (12.2-16.2); Lymphocytes # 1.6 K/mm3 (0.7-4.5); Lymphocytes % 21.2 % (10-50); Mean Corpuscular HGB Conc 34.3 g/dL (31.8-35.4); Mean Corpuscular Hemoglobin 29.1 pg (27.0-31.2); Mean Corpuscular Volume 84.9 fl (81-99); Mean Platelet Volume 8.5 fl (7.4-10.4); Monocytes # 0.5 K/mm3 (0.1-1.0); Monocytes % 6.3 % (1.7-9.3); Neutrophils # 5.4 K/mm3 (1.8-7.8); Neutrophils % 70.6 % (37.0-80.0); Platelet Count 278 K/mm3 (142-424); Red Blood Count 4.53 M/mm3 (4.20-5.40); White Blood Count 7.6 K/mm3 (4.8-10.8)
[2023-05-02 09:34] LABS: Alanine Aminotransferase 27 U/L (12-78); Albumin Level 4.1 g/dl (3.5-5.0); Albumin/Globulin Ratio 1.4 (1.1-1.8); Alkaline Phosphatase 76 U/L (38-126); Aspartate Amino Transferase 33 U/L (14-36); Bilirubin,Total 0.3 mg/dl (0.2-1.3); Blood Urea Nitrogen 18 mg/dl (7-17); Calcium 8.6 mg/dl (8.4-10.2); Carbon Dioxide 33 mmol/L (22.0-30.0); Chloride 91 mmol/L (98-107); Creatinine Clearance Estimated 41 mL/min (50-200); Estimated Glomerular Filt Rate 45 ml/min (>60); GFR (African American) 54 ML/MIN (>60); Globulin 2.9 g/dL (1.3-3.2); Glucose 175 mg/dl (74-100); Sodium 133 mmol/L (136-145)
== END 2023-05-02 10:45 | disposition home or self-care (01) ==
LOC: INF 08:59
PROVIDERS: Internal Medicine Medical Oncology; PCP Family Medicine; Visit Provider Internal Medicine Medical Oncology
DX: C18.9 Malignant neoplasm of colon, unspecified (principal); Z45.2 Encounter for adjustment and management of vascular access device; Z79.899 Other long term (current) drug therapy
CPT/HCPCS: 36591; 80053; 85025; J1642

== ENCOUNTER 2023-05-04 10:23 | Outpatient (CLI) | payer MEDICARE, SELFPAY ==
[2023-05-04 11:10] VITALS: BP 116/68; PULSE 71; RESP 16; O2SAT 99
[2023-05-04 11:40] VITALS: BP 133/70; PULSE 63; RESP 16
[2023-05-04 12:10] VITALS: BP 141/101; PULSE 65; RESP 16
== END 2023-05-04 12:15 | disposition home or self-care (01) ==
LOC: INF 10:24
PROVIDERS: PCP Family Medicine; Visit Provider Internal Medicine Medical Oncology
DX: C18.9 Malignant neoplasm of colon, unspecified (principal); C77.2 Secondary and unspecified malignant neoplasm of intra-abdominal lymph nodes; E86.0 Dehydration; Z45.2 Encounter for adjustment and management of vascular access device
CPT/HCPCS: 96365; J1642

== ENCOUNTER 2023-05-07 14:52 | Outpatient (CLI) | payer MEDICARE, SELFPAY ==
[2023-05-07 14:59] VITALS: BMI 21.9
[2023-05-07 15:15] VITALS: BP 122/70; PULSE 81; RESP 18; TEMP 36.8; O2SAT 97
[2023-05-07 15:26] LABS: Alanine Aminotransferase 30 U/L (12-78); Albumin/Globulin Ratio 1.5 (1.1-1.8); Alkaline Phosphatase 66 U/L (38-126); Anion Gap 12.8 mEq/L (5-15); Aspartate Amino Transferase 32 U/L (14-36); Bilirubin,Total 0.3 mg/dl (0.2-1.3); Blood Urea Nitrogen 25 mg/dl (7-17); Calcium 8.9 mg/dl (8.4-10.2); Carbon Dioxide 28 mmol/L (22.0-30.0); Chloride 96 mmol/L (98-107); Creatinine Clearance Estimated 43 mL/min (50-200); Estimated Glomerular Filt Rate 49 ml/min (>60); GFR (African American) 60 ML/MIN (>60); Globulin 2.7 g/dL (1.3-3.2); Glucose 186 mg/dl (74-100); Potassium 3.8 mmoL/L (3.5-5.1); Sodium 133 mmol/L (136-145); Total Protein,Serum 6.7 g/dl (6.3-8.2)
[2023-05-07 16:15] VITALS: BP 124/72; PULSE 79; RESP 18; O2SAT 99
== END 2023-05-07 16:18 | disposition home or self-care (01) ==
LOC: INF 14:53
PROVIDERS: PCP Family Medicine; Visit Provider Internal Medicine Medical Oncology
DX: C18.9 Malignant neoplasm of colon, unspecified (principal); E86.0 Dehydration; Z45.2 Encounter for adjustment and management of vascular access device
CPT/HCPCS: 80053; 96360; J1642

== ENCOUNTER 2023-05-10 13:19 | Outpatient (CLI) | payer MEDICARE, SELFPAY ==
[2023-05-10 13:53] VITALS: BP 147/47; PULSE 95; RESP 17; O2SAT 95
[2023-05-10 14:53] VITALS: BP 142/79; PULSE 78; RESP 16
== END 2023-05-10 15:00 | disposition home or self-care (01) ==
LOC: INF 13:21
PROVIDERS: PCP Family Medicine; Visit Provider Internal Medicine Medical Oncology
DX: C18.9 Malignant neoplasm of colon, unspecified (principal); Z45.2 Encounter for adjustment and management of vascular access device
CPT/HCPCS: 96365; J1642

== ENCOUNTER 2023-05-14 13:23 | Outpatient (CLI) | payer MEDICARE, SELFPAY ==
[2023-05-14 13:45] VITALS: BMI 21.7
[2023-05-14 14:25] VITALS: BP 126/74; PULSE 77; RESP 18; O2SAT 97
[2023-05-14 14:58] LABS: Alanine Aminotransferase 28 U/L (12-78); Albumin Level 3.8 g/dl (3.5-5.0); Albumin/Globulin Ratio 1.4 (1.1-1.8); Alkaline Phosphatase 70 U/L (38-126); Anion Gap 10.7 mEq/L (5-15); Aspartate Amino Transferase 32 U/L (14-36); Bilirubin,Total 0.4 mg/dl (0.2-1.3); Blood Urea Nitrogen 20 mg/dl (7-17); Calcium 9.6 mg/dl (8.4-10.2); Carbon Dioxide 30 mmol/L (22.0-30.0); Chloride 94 mmol/L (98-107); Creatinine Clearance Estimated 39 mL/min (50-200); Estimated Glomerular Filt Rate 45 ml/min (>60); GFR (African American) 54 ML/MIN (>60); Globulin 2.7 g/dL (1.3-3.2); Glucose 153 mg/dl (74-100); Potassium 3.7 mmoL/L (3.5-5.1); Sodium 131 mmol/L (136-145); Total Protein,Serum 6.5 g/dl (6.3-8.2)
[2023-05-14 15:31] VITALS: BP 156/69; PULSE 72; RESP 18
== END 2023-05-14 15:31 | disposition home or self-care (01) ==
LOC: INF 13:24
PROVIDERS: PCP Family Medicine; Visit Provider Internal Medicine Medical Oncology
DX: C18.9 Malignant neoplasm of colon, unspecified (principal); E86.0 Dehydration
CPT/HCPCS: 80053; 96360; J1642

== ENCOUNTER 2023-05-16 13:20 | Outpatient (CLI) | payer MEDICARE, SELFPAY ==
[2023-05-16 13:50] VITALS: BP 116/72; PULSE 82; RESP 16; O2SAT 98
[2023-05-16 14:50] VITALS: BP 114/62; PULSE 73; RESP 17; O2SAT 98
== END 2023-05-16 14:59 | disposition home or self-care (01) ==
LOC: INF 13:21
PROVIDERS: PCP Family Medicine; Visit Provider Internal Medicine Medical Oncology
DX: E87.6 Hypokalemia (principal); Z45.2 Encounter for adjustment and management of vascular access device; N17.9 Acute kidney failure, unspecified
CPT/HCPCS: 96365; J1642

== ENCOUNTER 2023-05-18 12:54 | Outpatient (CLI) | payer MEDICARE, SELFPAY ==
[2023-05-18 13:20] VITALS: BP 129/74; PULSE 75; RESP 18; O2SAT 98
[2023-05-18 14:20] VITALS: BP 130/64; PULSE 71
== END 2023-05-18 14:40 | disposition home or self-care (01) ==
LOC: INF 12:56
PROVIDERS: PCP Family Medicine; Visit Provider Internal Medicine Medical Oncology
DX: C18.9 Malignant neoplasm of colon, unspecified (principal); E86.0 Dehydration; Z45.2 Encounter for adjustment and management of vascular access device
CPT/HCPCS: 96360; J1642

== ENCOUNTER 2023-05-23 08:53 | Outpatient (CLI) | payer MEDICARE, SELFPAY ==
[2023-05-23] VITALS (9 sets, daily range): BP systolic 106–121; BP diastolic 52–76; PULSE 69–74; RESP 18; TEMP 37; O2SAT 97; BMI 21.9
[2023-05-23 09:29] LABS: Basophils % 0.4 % (0.1-2.0); Eosinophils # 0.1 K/mm3 (0.0-0.4); Hematocrit 34.2 % (37.0-47.0); Hemoglobin 11.9 g/dL (12.2-16.2); Lymphocytes # 0.9 K/mm3 (0.7-4.5); Lymphocytes % 23.1 % (10-50); Mean Corpuscular HGB Conc 34.8 g/dL (31.8-35.4); Mean Corpuscular Hemoglobin 28.7 pg (27.0-31.2); Mean Corpuscular Volume 82.4 fl (81-99); Mean Platelet Volume 8.8 fl (7.4-10.4); Monocytes # 0.3 K/mm3 (0.1-1.0); Monocytes % 6.4 % (1.7-9.3); Neutrophils # 2.7 K/mm3 (1.8-7.8); Neutrophils % 68.1 % (37.0-80.0); Platelet Count 194 K/mm3 (142-424); Red Blood Count 4.15 M/mm3 (4.20-5.40); Red Cell Distribution Width 16.8 % (11.5-17.5); White Blood Count 3.9 K/mm3 (4.8-10.8)
[2023-05-23 09:31] LABS: Alanine Aminotransferase 19 U/L (12-78); Albumin Level 3.7 g/dl (3.5-5.0); Albumin/Globulin Ratio 1.3 (1.1-1.8); Alkaline Phosphatase 107 U/L (38-126); Aspartate Amino Transferase 23 U/L (14-36); Bilirubin,Total 0.6 mg/dl (0.2-1.3); Blood Urea Nitrogen 20 mg/dl (7-17); Chloride 78 mmol/L (98-107); Creatinine Clearance Estimated 21 mL/min (50-200); Estimated Glomerular Filt Rate 22 ml/min (>60); GFR (African American) 27 ML/MIN (>60); Globulin 2.9 g/dL (1.3-3.2); Glucose 147 mg/dl (74-100); Sodium 130 mmol/L (136-145); Total Protein,Serum 6.6 g/dl (6.3-8.2)
[2023-05-23 09:45] LABS: Anion Gap 10.5 mEq/L (5-15); Carbon Dioxide 44 mmol/L (22.0-30.0)
[2023-05-23 09:46] LABS: Calcium 12.8 mg/dl (8.4-10.2); Potassium 2.5 mmoL/L (3.5-5.1)
[2023-05-23 12:03] LABS: Calcium 11.8 mg/dl (8.4-10.2)
[2023-05-24 08:17] LABS: CEA 99.3 ng/mL (0.0-4.7)
== END 2023-05-23 13:15 | disposition home or self-care (01) ==
LOC: INF 08:55
PROVIDERS: Visit Provider Internal Medicine Medical Oncology
DX: C18.9 Malignant neoplasm of colon, unspecified (principal)
CPT/HCPCS: 80053; 82310; 82378; 85025; 96360; 96361; J1642

== ENCOUNTER 2023-05-25 10:19 | Inpatient (IN) | payer MEDICARE, SELFPAY ==
[2023-05-25] VITALS (30 sets, daily range): BP systolic 120–168; BP diastolic 56–91; PULSE 67–93; RESP 14–22; TEMP 36.6–37.2; O2SAT 94–100; BMI 21.9; BMI 22.0
--- NOTE | 2023-05-25 10:53 | PC.NURSE ---
er at bedside
[2023-05-25 10:58] LABS: Basophils % 0.3 % (0.1-2.0); Eosinophils # 0.1 K/mm3 (0.0-0.4); Eosinophils % 2.8 % (0.1-12.0); Hematocrit 32.6 % (37.0-47.0); Hemoglobin 11.1 g/dL (12.2-16.2); Lymphocytes # 0.8 K/mm3 (0.7-4.5); Mean Corpuscular Volume 82.4 fl (81-99); Mean Platelet Volume 8.8 fl (7.4-10.4); Monocytes # 0.2 K/mm3 (0.1-1.0); Monocytes % 5.5 % (1.7-9.3); Neutrophils # 2.2 K/mm3 (1.8-7.8); Neutrophils % 67.3 % (37.0-80.0); Platelet Count 193 K/mm3 (142-424); Red Blood Count 3.95 M/mm3 (4.20-5.40); Red Cell Distribution Width 16.7 % (11.5-17.5); White Blood Count 3.3 K/mm3 (4.8-10.8)
--- NOTE | 2023-05-25 11:04 | HMH.EDGENADL ---
Discharge Plan Disposition Patient Disposition: Admitted Chief Complaint: Weakness Prescriptions Prescriptions: No Action levothyroxine 200 mcg tablet 200 mcg PO DAILY Patient Comments: TAKE 1 TABLET BY MOUTH ONCE DAILY IN THE MORNING ON AN EMPTY STOMACH dicyclomine 10 mg/5 mL solution 10 mg PO DAILY dexamethasone 2 mg tablet 2 mg PO DAILY olanzapine 2.5 mg tablet 2.5 mg PO DAILY metoclopramide HCl 5 mg tablet 2.5 mg PO TID Patient Comments: TAKE 1/2 (ONE-HALF) TABLET BY MOUTH THREE TIMES DAILY alprazolam 0.25 mg tablet 0.25 mg PO TID Patient Comments: TAKE 1 TABLET BY MOUTH THREE TIMES DAILY ketoconazole 2 % cream 1 applic topical DAILY potassium chloride 20 mEq tablet,ER particles/crystals 20 meq PO BID Referrals Follow up/Referrals: Fanta Molina MD [Primary Care Provider] - See instructions Clinical Impressions Clinical Impression: Vomiting, Diarrhea, CHRISTIANO (acute kidney injury), Acute hypokalemia Discharge ED Provider: Lan Brewer General Adult HPI General Chief complaint: Weakness Stated complaint: vomiting, dehydration Time Seen by Provider: 05/25/23 10:23 Mode of Arrival: Wheelchair Source of Information: Patient and Relative Limitations: No Limitations Description of Symptoms (Recalled from ER Triage Doc. by RN): pt comes in with c/o weakness. pt reports that she gets fluid infusions at infusion clinic [facility]. due to them being closed for the holiday, pt reports that she received 2 bag of fluid on sunday. pt reports that she still feels weak. pt was diagnosed with flu on sunday. History of Present Illness HPI narrative: 67-year-old female with history of colon cancer with port in place currently following with hematology/oncology as well as surgical oncology at [facility] presenting with dehydration. Patient states she had a GI bug this week on Sunday, throughout Sunday and Sunday and was unable to make it out to get her fluid infusion on Sunday. Got double fluids on Sunday as well as potassium. Has been throwing up intermittently and having vomiting since Sunday. Because of the holiday on 05/24, patient was unable to get fluids infused so called her section supervisor. Rn Care Manager that if she feels like she is unable to make it until Sunday, 05/28, come to the emergency department for further evaluation. Related Data Home Medications Medication Instructions Recorded Confirmed levothyroxine 200 mcg tablet 200 mcg PO DAILY Thyroid 03/08/23 05/25/23 alprazolam 0.25 mg tablet 0.25 mg PO TID 05/02/23 05/25/23 dexamethasone 2 mg tablet 2 mg PO DAILY 05/02/23 05/25/23 dicyclomine 10 mg/5 mL oral 10 mg PO DAILY 05/02/23 05/25/23 solution ketoconazole 2 % topical cream 1 applic topical DAILY 05/02/23 05/25/23 metoclopramide HCl 5 mg tablet 2.5 mg PO TID 05/02/23 05/25/23 olanzapine 2.5 mg tablet 2.5 mg PO DAILY 05/02/23 05/25/23 potassium chloride 20 mEq 20 meq PO BID 05/23/23 05/25/23 tablet,extended release(part/cryst) Allergies Allergy/AdvReac Type Severity Reaction Status Date / Time No Known Allergies Allergy Verified 05/25/23 10:55 [facility] Disclaimer: The information contained in this section may have been updated after the patient was seen, as this information can be updated by other users. Medical History Age-related osteoporosis without current pathological fracture Anxiety BMI 32.0-32.9,adult Cancer Colon cancer Diabetes mellitus Dizziness History of breast cancer History of hypertension Lung nodule Osteoarthritis Thyroid cancer Surgical History H/O bilateral mastectomy H/O thyroidectomy History of appendectomy History of bunionectomy of left great toe History of ileostomy Total knee replacement status left and right Family History (Reviewed 05/23/23 @ 09:19 by Kimberly
[2023-05-25 11:10] LABS: Alanine Aminotransferase 14 U/L (12-78); Albumin Level 3.2 g/dl (3.5-5.0); Albumin/Globulin Ratio 1.3 (1.1-1.8); Alkaline Phosphatase 89 U/L (38-126); Aspartate Amino Transferase 23 U/L (14-36); Bilirubin,Total 0.6 mg/dl (0.2-1.3); Blood Urea Nitrogen 22 mg/dl (7-17); Calcium 11.7 mg/dl (8.4-10.2); Chloride 85 mmol/L (98-107); Creatinine Clearance Estimated 21 mL/min (50-200); Estimated Glomerular Filt Rate 22 ml/min (>60); GFR (African American) 27 ML/MIN (>60); Globulin 2.5 g/dL (1.3-3.2); Glucose 105 mg/dl (74-100); Magnesium 1.7 mg/dl (1.6-2.3); Sodium 130 mmol/L (136-145); Total Protein,Serum 5.7 g/dl (6.3-8.2)
[2023-05-25 11:17] LABS: Anion Gap 9.5 mEq/L (5-15); Carbon Dioxide 38 mmol/L (22.0-30.0)
[2023-05-25 11:18] LABS: Potassium 2.5 mmoL/L (3.5-5.1)
--- NOTE | 2023-05-25 12:06 | PC.NURSE ---
pt given meal tray, then asked for blanket and lights out
[2023-05-25 15:02] LABS: Creatinine Clearance Estimated 22 mL/min (50-200)
[2023-05-25 15:11] LABS: Sodium 135 mmol/L (136-145)
[2023-05-25 15:12] LABS: Anion Gap 8.2 mEq/L (5-15); Blood Urea Nitrogen 20 mg/dl (7-17); Calcium 11.1 mg/dl (8.4-10.2); Carbon Dioxide 37 mmol/L (22.0-30.0); Chloride 93 mmol/L (98-107); Estimated Glomerular Filt Rate 23 ml/min (>60); GFR (African American) 28 ML/MIN (>60); Glucose 132 mg/dl (74-100); Potassium 3.2 mmoL/L (3.5-5.1)
--- NOTE | 2023-05-25 15:18 | PC.NURSE ---
andre borjas speaking with dr bruce at this time.
--- NOTE | 2023-05-25 16:14 | HMH.PHAINT1 ---
Pharmacy Intervention Comments: MEDICATION RECONCILIATION COMPLETE USING LIST FROM MOST RECENT MD OFFICE VISIT AND EXTERNAL PHARMACY FILL HISTORY.
--- NOTE | 2023-05-25 16:29 | PC.NURSE ---
called report to Trinh RENDON
--- NOTE | 2023-05-25 17:18 | PC.NURSE ---
Patient state she doesn't take any home meds at all except for oxycodone.
--- NOTE | 2023-05-26 02:09 | PC.NURSE ---
pt c/o indigestion, requesting tums, @[phone] paged MD Ng park recreation manager for MD Molina, no response at this time
[2023-05-26 04:00] VITALS: BP 136/72; PULSE 69; RESP 17; TEMP 36.5; O2SAT 96; BMI 22.5
[2023-05-26 07:51] LABS: Basophils % 0.3 % (0.1-2.0); Eosinophils # 0.1 K/mm3 (0.0-0.4); Eosinophils % 2.2 % (0.1-12.0); Hematocrit 32.8 % (37.0-47.0); Hemoglobin 11.2 g/dL (12.2-16.2); Lymphocytes # 0.7 K/mm3 (0.7-4.5); Mean Corpuscular HGB Conc 34.1 g/dL (31.8-35.4); Mean Corpuscular Hemoglobin 28.8 pg (27.0-31.2); Mean Corpuscular Volume 84.6 fl (81-99); Mean Platelet Volume 8.7 fl (7.4-10.4); Monocytes # 0.2 K/mm3 (0.1-1.0); Monocytes % 5.8 % (1.7-9.3); Neutrophils # 2.9 K/mm3 (1.8-7.8); Neutrophils % 73.8 % (37.0-80.0); Platelet Count 170 K/mm3 (142-424); Red Blood Count 3.88 M/mm3 (4.20-5.40); Red Cell Distribution Width 16.9 % (11.5-17.5); White Blood Count 3.9 K/mm3 (4.8-10.8)
[2023-05-26 07:54] LABS: Blood Urea Nitrogen 20 mg/dl (7-17); Calcium 10.6 mg/dl (8.4-10.2); Chloride 93 mmol/L (98-107); Creatinine Clearance Estimated 21 mL/min (50-200); Estimated Glomerular Filt Rate 22 ml/min (>60); GFR (African American) 27 ML/MIN (>60); Glucose 109 mg/dl (74-100); Potassium 3.1 mmoL/L (3.5-5.1); Sodium 132 mmol/L (136-145)
[2023-05-26 07:58] VITALS: BP 146/76; PULSE 72; RESP 18; TEMP 36.6; O2SAT 99
[2023-05-26 08:01] LABS: Anion Gap 6.1 mEq/L (5-15); Carbon Dioxide 36 mmol/L (22.0-30.0)
--- NOTE | 2023-05-26 10:24 | EXP.HP ---
History of Present Illness *History of present illness: 67-year-old female with history of metastatic colon cancer presented to [facility] ER with nausea, vomiting, dehydration. She has an ileostomy and a port in place. She is currently following with hematology/oncology as well as surgical oncology at [facility]. Patient states she had a GI bug this week on Sunday, throughout Sunday and Sunday and was unable to get her fluid infusion on Sunday at [facility]. She did receive double amount of fluids on Sunday as well as potassium. Has been throwing up intermittently since Sunday. Because of the holiday on 05/24, patient was unable to get fluids infused. She contacted her oncologist. Oncologist suggested she come to the emergency department for further evaluation. ER NOTE: On arrival, patient hemodynamically stable, alert, oriented x4, appropriate, GCS 15, moving all extremities spontaneously, pupils equal and reactive to light. Full physical exam performed and significant for tachycardic woman who is in no acute distress. Intermittently retching, but abdomen is soft, nontender. Lungs are clear to auscultation. Pulses equal and symmetric Differential includes CHRISTIANO, metabolic, PUD, gastritis, enteritis, gastroenteritis, pancreatitis, SBO, colitis, diverticulitis, nephrolithiasis, UTI, aortic pathology, mesenteric ischemia, , cholecystitis, appendicitis, hepatitis, among others. Patient was given 2 L of fluid, 40 mEq IV potassium, 40 mEq p.o. potassium for symptomatic management and correction of underlying abnormalities. Workup independently interpreted and significant for HCRISTIANO and hypokalemia. Repeat labs showed improved kidney function and improved potassium up to 3.2. See radiology read for full review of final results. On reevaluation, patient resting comfortably, but remains with CHRISTIANO. Given patient presentation, workup, history, this most likely represents CHRISTIANO in the setting of chronic vomiting and dehydration with associated hypokalemia. Because patient high risk for clinical decompensation, deemed appropriate for inpatient admission. Results were relayed to patient who voiced understanding and patient was agreeable to inpatient admission and management. Patient was admitted to the hospital for further definitive management, and remained hemodynamically stable during entire stay in the emergency department. THIS AM: The patient is crying out, complaining of severe heartburn and states she is having difficulty finding words. She is in uncharacteristic distress. [facility] Disclaimer: The information contained in this section may have been updated after the patient was seen, as this information can be updated by other users. Medical History Age-related osteoporosis without current pathological fracture Anxiety BMI 32.0-32.9,adult Cancer Colon cancer Diabetes mellitus Dizziness History of breast cancer History of hypertension Lung nodule Osteoarthritis Thyroid cancer Surgical History H/O bilateral mastectomy H/O thyroidectomy History of appendectomy History of bunionectomy of left great toe History of ileostomy Total knee replacement status left and right Family History Other Coronary artery disease Hypertension Stroke Social History (Updated 05/25/23 @ 17:20 by Shanel Ceron RN) Smoking Status: Current every day smoker tobacco type: cigarettes packs per day: 1 alcohol intake: former current occupational status: disabled and other Travel in the last 8 weeks: None Review of Systems Review of Systems Review of systems:: unable to obtain (due to patient's distress and confusion.) *Cardiovascular Cardiovascular: Reports dyspnea *Respiratory Respiratory: Reports dyspnea *Gastrointestinal Gastrointestinal: Reports abdominal pain and Rep
--- NOTE | 2023-05-26 10:49 | CT_ITS ---
PROCEDURE INFORMATION: Exam: CT Abdomen And Pelvis Without Contrast Exam date and time: 05/26/2023 11:00 AM Age: 67 years old Clinical indication: Prior oncological treatment - colon cancer. Abdominal pain; Prior surgery; Surgery date: 6+ months; Surgery type: Colostomy; Additional info: Metastatic colon carcinoma TECHNIQUE: Imaging protocol: Computed tomography of the abdomen and pelvis without contrast. Radiation optimization: All CT scans at this facility use at least one of these dose optimization techniques: automated exposure control; mA and/or kV adjustment per patient size (includes targeted exams where dose is matched to clinical indication); or iterative reconstruction. REPORTING DATA: Count of CT and Cardiac NM exams in prior 12 months: This patient has received 14 known CTs and 0 known cardiac nuclear medicine studies in the 12 months prior to the current study. COMPARISON: CT ABDOMEN PELVIS W CON 04/27/2023 7:58 AM FINDINGS: Lungs: Opacities in the right lower lobe may represent atelectasis or pneumonia.. 16 mm pulmonary nodule in the left lower lobe may represent metastatic disease.. Pleural spaces: Moderate right pleural effusion. Smaller left pleural effusion . Heart: Pericardial effusion Diaphragm: Small hiatal hernia Liver: Normal. No mass. Gallbladder and bile ducts: Possible gallstones in the gallbladder Pancreas: Pancreatic atrophy Spleen: Normal. No splenomegaly. Adrenal glands: Normal. No mass. Kidneys and ureters: Normal. No hydronephrosis. Stomach and bowel: Multiple linear collections of air in loops of bowel could represent pneumatosis. For example series 3, image [id number] -[id number] This is worrisome for ischemic bowel in the appropriate clinical setting.. Suboptimal study due to significant dilatation of bowel without oral or IV contrast. Diverticulosis of the rectosigmoid. No diverticulitis. Dilated loops of small bowel with multiple air-fluid levels may represent obstruction or ileus. Appendix: No evidence of appendicitis. Intraperitoneal space: Large amount of ascites throughout the abdomen and pelvis. Vasculature: Unremarkable. No abdominal aortic aneurysm. Lymph nodes: Unremarkable. No enlarged lymph nodes. Urinary bladder: Unremarkable as visualized. Reproductive: Unremarkable as visualized. Bones/joints: Stable appearance of the osseous structures. No acute fracture. Soft tissues: Soft tissue densities extending to the surface of the skin from the intraperitoneal cavity may represent colostomies.. IMPRESSION: 1. Multiple linear collections of air in loops of bowel could represent pneumatosis. For example series 3, image [id number] -[id number] This is worrisome for ischemic bowel in the appropriate clinical setting.. 2. Moderate right pleural effusion. Smaller left pleural effusion . 3. Opacities in the right lower lobe may represent atelectasis or pneumonia.. 4. 16 mm pulmonary nodule in the left lower lobe may represent metastatic disease.. 5. Large amount of ascites throughout the abdomen and pelvis. 6. Soft tissue densities extending to the surface of the skin from the intraperitoneal cavity may represent colostomies.. 7. Suboptimal study due to significant dilatation of bowel without oral or IV contrast. 8. Dilated loops of small bowel with multiple air-fluid levels may represent obstruction or ileus.
--- NOTE | 2023-05-26 12:06 | PC.NURSE ---
pt has refused multiple times to be cleaned up
--- NOTE | 2023-05-26 13:57 | CT_ITS ---
PROCEDURE INFORMATION: Exam: CT Head Without Contrast Exam date and time: 05/26/2023 2:21 PM Age: 67 years old Clinical indication: Other: R/O brain mets TECHNIQUE: Imaging protocol: Computed tomography of the head without contrast. Radiation optimization: All CT scans at this facility use at least one of these dose optimization techniques: automated exposure control; mA and/or kV adjustment per patient size (includes targeted exams where dose is matched to clinical indication); or iterative reconstruction. REPORTING DATA: Count of CT and Cardiac NM exams in prior 12 months: This patient has received 14 known CTs and 0 known cardiac nuclear medicine studies in the 12 months prior to the current study. COMPARISON: CT ANGIO HEAD 10/24/2022 4:42 PM FINDINGS: Brain: No acute intracranial hemorrhage.. There is mild diffuse heterogeneity of the white matter attenuation, consistent with chronic white matter ischemic changes. Mild cerebral atrophy Cerebral ventricles: No ventriculomegaly. Paranasal sinuses: Visualized sinuses are unremarkable. No fluid levels. Mastoid air cells: Visualized mastoid air cells are well aerated. Bones/joints: Unremarkable. No acute fracture. Soft tissues: Unremarkable. IMPRESSION: No acute intracranial hemorrhage..
[2023-05-26 14:21] LABS: Basophils % 0.1 % (0.1-2.0); Eosinophils # 0.1 K/mm3 (0.0-0.4); Eosinophils % 3.6 % (0.1-12.0); Hematocrit 32.4 % (37.0-47.0); Lymphocytes # 0.6 K/mm3 (0.7-4.5); Lymphocytes % 17.8 % (10-50); Mean Corpuscular Hemoglobin 28.8 pg (27.0-31.2); Mean Corpuscular Volume 84.7 fl (81-99); Mean Platelet Volume 8.6 fl (7.4-10.4); Monocytes # 0.1 K/mm3 (0.1-1.0); Monocytes % 2.5 % (1.7-9.3); Neutrophils # 2.6 K/mm3 (1.8-7.8); Neutrophils % 75.9 % (37.0-80.0); Platelet Count 167 K/mm3 (142-424); Red Blood Count 3.82 M/mm3 (4.20-5.40); Red Cell Distribution Width 16.9 % (11.5-17.5); White Blood Count 3.4 K/mm3 (4.8-10.8)
[2023-05-26 14:22] LABS: Chloride 95 mmol/L (98-107)
[2023-05-26 14:23] LABS: Potassium 3.2 mmoL/L (3.5-5.1); Sodium 135 mmol/L (136-145)
[2023-05-26 14:26] LABS: Anion Gap 4.2 mEq/L (5-15); Blood Urea Nitrogen 19 mg/dl (7-17); Calcium 10.5 mg/dl (8.4-10.2); Carbon Dioxide 39 mmol/L (22.0-30.0); Creatinine Clearance Estimated 21 mL/min (50-200); Estimated Glomerular Filt Rate 22 ml/min (>60); GFR (African American) 27 ML/MIN (>60); Glucose 99 mg/dl (74-100); Lactic Acid 0.8 mmol/L (0.7-2.1)
[2023-05-26 14:31] LABS: C-Reactive Protein 24.1 mg/L (0-4)
--- NOTE | 2023-05-26 14:44 | CT_ITS ---
PROCEDURE INFORMATION: Exam: CT Abdomen And Pelvis Without Contrast Exam date and time: 05/26/2023 5:06 PM Age: 67 years old Clinical indication: Abdominal pain; Epigastric; Prior surgery; Surgery date: 1-6 months; Surgery type: Colon cancer, with ileostomy; Additional info: Abdominal pain and distention TECHNIQUE: Imaging protocol: Computed tomography of the abdomen and pelvis without contrast. Radiation optimization: All CT scans at this facility use at least one of these dose optimization techniques: automated exposure control; mA and/or kV adjustment per patient size (includes targeted exams where dose is matched to clinical indication); or iterative reconstruction. Other contrast: Oral, gastrographin, 30 ml mixed with sprite; REPORTING DATA: Count of CT and Cardiac NM exams in prior 12 months: This patient has received 14 known CTs and 0 known cardiac nuclear medicine studies in the 12 months prior to the current study. COMPARISON: CT ABDOMEN PELVIS WO CON 05/26/2023 11:00 AM FINDINGS: Lungs: Again noted is the 16 mm nodule in the left lower lobe. Pleural spaces: Moderate size right pleural effusion again noted. Small left pleural effusion again noted. Diaphragm: Moderate sized hiatal hernia again noted. Liver: Normal. No mass. Gallbladder and bile ducts: Again noted are possible small gallstones. Pancreas: Diffuse atrophy again noted. No acute changes or focal lesions. Spleen: Normal. No splenomegaly. Adrenal glands: Normal. No mass. Kidneys and ureters: Normal. No hydronephrosis. Stomach and bowel: Again noted is diffuse mucosal edema throughout the stomach. Again noted are dilated loops of small intestine. Dilated loops are present from the upper abdomen to the mid pelvis. Again noted is the right-sided ostomy. Again noted is prominent gas in some of the loops of small intestine. The gas probably represents pneumatosis. The affected loops are proximal to very inflamed loops of small intestine proximal to the ostomy. This finding was present previously. Diverticula of the sigmoid colon again noted. No associated inflammatory changes. Appendix: No evidence for appendicitis. Intraperitoneal space: Moderate amount of free fluid in the abdomen and pelvis. The amount of fluid is similar to previous. Vasculature: Unremarkable. No abdominal aortic aneurysm. Lymph nodes: Unremarkable. No enlarged lymph nodes. Urinary bladder: Unremarkable as visualized. Reproductive: Unremarkable as visualized. Bones/joints: Unremarkable. No acute fracture. Soft tissues: Unremarkable. IMPRESSION: 1. Inflammatory changes of the small bowel as described. The differential diagnosis includes infectious enterocolitis and inflammatory bowel disease. Pneumatosis of some small bowel loops proximal to the inflamed loops again noted. This probably is secondary to the inflamed intestine rather than ischemic bowel. 2. Moderate amount of nonspecific free fluid in the abdomen and pelvis. 3. Colonic diverticular disease without diverticulitis. 4. Moderate size right pleural effusion.
--- NOTE | 2023-05-26 14:53 | EXP.SURG.CON ---
History of Present Illness *Admission Date: 05/26/23 *History of present illness: Patient is a very pleasant unfortunate 67-year-old female. She had been admitted in August of this year with abdominal pain, vomiting, distention. She was found to have large volume ascites. CA125 was elevated. She ultimately underwent evaluation at [facility] in August of this year at which time she underwent laparotomy by Dr. Meek Gallegos on 09/25/2022 at which time she was found to have extensive peritoneal disease and obstruction in the right colon. She underwent resection with end ileostomy. She has a known diagnosis of stage IV colon cancer with diffuse peritoneal carcinomatosis and ascites. She did have an admission to this facility last month with bowel obstruction symptoms as she had been awaiting transfer to [facility] and ultimately once a bed was made available she was transferred. She had been noted to have significant retraction of her ileostomy at that time and there was plans for ileostomy revision. Patient is currently followed with hematology oncology at this facility and with surgical oncology at the [facility]. She has required IV fluid infusion via venous access port at [facility] due to chronic vomiting. Recently she had possible gastrointestinal illness and due to holiday was unable to get fluids infused. She apparently did not undergo her infusion on 05/21/23 as she felt she didn't need it. She was seen by oncology on 05/23/2023. She had developed progressive weakness and symptoms of dehydration. She was instructed by her oncologist to present to the emergency department at [facility]. She was evaluated in the emergency department yesterday on 05/25/2023. Workup was significant for acute kidney injury and hypokalemia. She was therefore admitted for inpatient management. At that time the patient was reportedly in no acute distress but with her dehydration and hypokalemia it was felt that she warranted inpatient admission. Dr. Molina ordered CT scan of the abdomen and pelvis this morning. This revealed, multiple linear collections of air and loops of bowel could represent pneumatosis. . . 16 mm pulmonary nodule in left lower lobe may represent metastatic disease. Large amount of ascites throughout the abdomen and pelvis. Soft tissue densities extending to the surface of the skin from the intraperitoneal cavity may represent colostomies. Suboptimal study due to significant dilatation of bowel without oral or IV contrast. Dilated loops of small bowel with multiple air-fluid levels may represent obstruction or ileus. Patient denies any vomiting at this time. She has had some belching and hiccups. Ostomy is functioning. Denies any significant abdominal pain. [facility] Disclaimer: The information contained in this section may have been updated after the patient was seen, as this information can be updated by other users. Medical History Age-related osteoporosis without current pathological fracture Anxiety BMI 32.0-32.9,adult Cancer Colon cancer Diabetes mellitus Dizziness History of breast cancer History of hypertension Lung nodule Osteoarthritis Thyroid cancer Surgical History H/O bilateral mastectomy H/O thyroidectomy History of appendectomy History of bunionectomy of left great toe History of ileostomy Total knee replacement status left and right Family History Other Coronary artery disease Hypertension Stroke Social History (Updated 05/25/23 @ 17:20 by Shanel Ceron RN) Smoking Status: Current every day smoker tobacco type: cigarettes packs per day: 1 alcohol intake: former current occupational status: disabled and other Travel in the last 8 weeks:
--- NOTE | 2023-05-26 15:22 | EXP.ACUTE.PN ---
Subjective *Date: 05/26/23 *Time: 15:22 Interval history: Internal medicine cross cover note: Called by virtual radiology physician and by nurse on duty today about the noncontrast CT of abdomen that was ordered earlier by Dr. Molina. Suspicion for radiologist for air within bowel loops, possibly in the bowel wall suspicious for pneumatosis. In discussion with radiologist she noted this was a noncontrast scan but she was concerned about the possibility of ischemic bowel. I came and talk to patient, examined patient and talked with surgery consultation personally. Medical Exam Vital signs and Labs for Last 24 Hours: Vital Signs Temp Pulse Pulse Resp BP BP Pulse Ox 05/26/23 14:50 05/26/23 13:00 05/26/23 11:00 05/26/23 08:54 05/26/23 08:00 05/26/23 07:58 97.9 F 72 18 146/76 H 99 05/26/23 07:00 05/26/23 05:00 05/26/23 04:00 97.7 F 69 17 136/72 96 05/26/23 03:00 05/26/23 01:00 05/25/23 20:00 99.0 F 72 18 148/74 H 97 05/25/23 23:00 05/25/23 21:00 05/25/23 20:00 05/25/23 18:05 05/25/23 17:29 05/25/23 17:08 98.3 F 93 H 22 135/73 99 05/25/23 16:36 98.2 F 81 18 151/68 H 05/25/23 16:00 76 18 149/86 H 96 05/25/23 15:30 77 18 155/87 H 96 O2 Del Method 05/26/23 14:50 Room Air 05/26/23 13:00 Room Air 05/26/23 11:00 Room Air 05/26/23 08:54 Room Air 05/26/23 08:00 Room Air 05/26/23 07:58 Room Air 05/26/23 07:00 Room Air 05/26/23 05:00 Room Air 05/26/23 04:00 Room Air 05/26/23 03:00 Room Air 05/26/23 01:00 Room Air 05/25/23 20:00 Room Air 05/25/23 23:00 Room Air 05/25/23 21:00 Room Air 05/25/23 20:00 Room Air 05/25/23 18:05 Room Air 05/25/23 17:29 Room Air 05/25/23 17:08 Room Air 05/25/23 16:36 Room Air 05/25/23 16:00 05/25/23 15:30 Intake and Output 05/26/23 05/26/23 05/26/23 03:59 11:59 19:59 Intake Total 80 / 1570 1490 / 1570 0 / 0 Output Total 550 / 850 300 / 850 Balance -470 / 720 1190 / 720 0 / 0 Intake: Intake, Oral Amount 80 / 620 540 / 620 0 / 0 Intake, Total IV Amount 950 / 950 Lactated Ringers 1000ML 1,000 950 / 950 ml @ 100 mls/hr IV .Q10H [facility] Rx #:[id number] Output: Output, Urine Amount 550 / 850 300 / 850 Other: Number of Unmeasured Voids 1 1 Number of Bowel Movements 1 Weight 122 lb 7 oz Laboratory Results - last 24 hr 05/26/23 07:02: WBC 3.9 L, RBC 3.88 L, Hgb 11.2 L, Hct 32.8 L, MCV 84.6, MCH 28.8, MCHC 34.1, RDW 16.9, Plt Count 170, MPV 8.7, Neut % (Auto) 73.8, Lymph % (Auto) 18.0, [place] % (Auto) 5.8, Eos % (Auto) 2.2, Baso % (Auto) 0.3, Neut # (Auto) 2.9, Lymph # (Auto) 0.7, [place] # (Auto) 0.2, Eos # (Auto) 0.1, Baso # (Auto) 0.0, Sodium 132 L, Potassium 3.1 L, Chloride 93 L, Carbon Dioxide 36 H, Anion Gap 6.1, BUN 20 H, Creatinine 2.20 H, Estimated Creat Clear 21, Estimated GFR 22 L, Est GFR ( Amer) 27 L, Glucose 109 H, Calcium 10.6 H 05/26/23 14:10: WBC 3.4 L, RBC 3.82 L, Hgb 11.0 L, Hct 32.4 L, MCV 84.7, MCH 28.8, MCHC 34.0, RDW 16.9, Plt Count 167, MPV 8.6, Neut % (Auto) 75.9, Lymph % (Auto) 17.8, [place] % (Auto) 2.5, Eos % (Auto) 3.6, Baso % (Auto) 0.1, Neut # (Auto) 2.6, Lymph # (Auto) 0.6 L, [place] # (Auto) 0.1, Eos # (Auto) 0.1, Baso # (Auto) 0.0, Sodium 135 L, Potassium 3.2 L, Chloride 95 L, Carbon Dioxide 39 H, Anion Gap 4.2 L, BUN 19 H, Creatinine 2.20 H, Estimated Creat Clear 21, Estimated GFR 22 L, Est GFR ( Amer) 27 L, Glucose 99, Lactate 0.8, Calcium 10.5 H, C-Reactive Protein 24.1 H I & O for Labs for Last 24 Hours: Intake & Output 05/24/23 05/25/23 05/26/23 05/27/23 11:59 11:59 11:59 11:59 Intake Total 1570 / 1570 0 / 0 Output Total 850 / 850 Balance 720 / 720 0 / 0 Weight 120 lb 122 lb 7 oz Comment:: Patient is alert. Oriented x 3. Has a little bit of difficulty with word finding but this has been the case over the pas
--- NOTE | 2023-05-26 16:11 | PC.NURSE ---
Pt alert and oriented x4, pt ambulated to the restroom. Pt ileostomy has been changed one time this shift because of leaking. This morning, pt was upset and crying due to burning in her throat, MD Molina prescribed new meds. Pt abdomen distended, tender, and guarding. Bowel sounds active. Lung sounds clear. Pt receiving IV fluid through port. Pt has complained of pain two times this shift, treated per aug. Pt has been treated for heartburn twice this shift. Pt has rested in the bed throughout shift. Bed in lowest position, call light in reach.
[2023-05-26 20:00] VITALS: BP 140/90; PULSE 78; RESP 16; TEMP 36.6; O2SAT 93
[2023-05-26 21:47] LABS: Lactic Acid 1.1 mmol/L (0.7-2.1)
[2023-05-26 22:28] LABS: Basophils % 0.1 % (0.1-2.0); Eosinophils # 0.1 K/mm3 (0.0-0.4); Eosinophils % 3.1 % (0.1-12.0); Hematocrit 33.8 % (37.0-47.0); Hemoglobin 11.6 g/dL (12.2-16.2); Lymphocytes # 0.6 K/mm3 (0.7-4.5); Lymphocytes % 19.7 % (10-50); Mean Corpuscular HGB Conc 34.3 g/dL (31.8-35.4); Mean Corpuscular Hemoglobin 28.3 pg (27.0-31.2); Mean Corpuscular Volume 82.5 fl (81-99); Mean Platelet Volume 8.6 fl (7.4-10.4); Monocytes # 0.1 K/mm3 (0.1-1.0); Monocytes % 4.3 % (1.7-9.3); Neutrophils # 2.2 K/mm3 (1.8-7.8); Neutrophils % 72.7 % (37.0-80.0); Platelet Count 183 K/mm3 (142-424); Red Blood Count 4.09 M/mm3 (4.20-5.40); Red Cell Distribution Width 16.8 % (11.5-17.5)
--- NOTE | 2023-05-27 02:15 | PC.NURSE ---
ILEOSTOMY BAG LEAKING AND WAS CHANGED.
[2023-05-27 04:00] VITALS: BP 166/89; PULSE 71; RESP 16; TEMP 36.6; O2SAT 96; BMI 22.5
--- NOTE | 2023-05-27 05:47 | PC.NURSE ---
PATIENT IS LETHARGIC BUT ORIENTED, IVFs INFUSING WITHOUT DIFFULTY TO VILMA CATH RIGHT UPPER CHEST WALL. ILEOSTOMY BAG CHANGED TWICE THIS SHIFT DUE TO LEAKING. MEDICATED ONCE WITH MORPHINE 2 MG IVP FOR ABDOMINAL PAIN AT 0156.
--- NOTE | 2023-05-27 07:13 | PC.NURSE ---
Patient refused care, her colostomy had leaked and she refused to let staff change sheets
[2023-05-27 07:57] VITALS: BP 165/90; PULSE 79; RESP 16; TEMP 36.7; O2SAT 91
[2023-05-27 08:12] LABS: Basophils % 0.3 % (0.1-2.0); Eosinophils # 0.1 K/mm3 (0.0-0.4); Eosinophils % 2.6 % (0.1-12.0); Hematocrit 34.2 % (37.0-47.0); Hemoglobin 11.5 g/dL (12.2-16.2); Lymphocytes # 0.7 K/mm3 (0.7-4.5); Lymphocytes % 28.3 % (10-50); Mean Corpuscular HGB Conc 33.6 g/dL (31.8-35.4); Mean Corpuscular Hemoglobin 28.5 pg (27.0-31.2); Mean Corpuscular Volume 84.9 fl (81-99); Mean Platelet Volume 8.8 fl (7.4-10.4); Monocytes # 0.2 K/mm3 (0.1-1.0); Monocytes % 8.4 % (1.7-9.3); Neutrophils # 1.6 K/mm3 (1.8-7.8); Neutrophils % 60.4 % (37.0-80.0); Platelet Count 152 K/mm3 (142-424); Red Blood Count 4.03 M/mm3 (4.20-5.40); Red Cell Distribution Width 16.9 % (11.5-17.5); White Blood Count 2.6 K/mm3 (4.8-10.8)
[2023-05-27 08:21] LABS: Alanine Aminotransferase 12 U/L (12-78); Albumin Level 2.9 g/dl (3.5-5.0); Albumin/Globulin Ratio 1.1 (1.1-1.8); Alkaline Phosphatase 90 U/L (38-126); Aspartate Amino Transferase 21 U/L (14-36); Bilirubin,Total 0.4 mg/dl (0.2-1.3); Blood Urea Nitrogen 18 mg/dl (7-17); Calcium 10.3 mg/dl (8.4-10.2); Carbon Dioxide 39 mmol/L (22.0-30.0); Chloride 94 mmol/L (98-107); Creatinine Clearance Estimated 22 mL/min (50-200); Estimated Glomerular Filt Rate 23 ml/min (>60); GFR (African American) 28 ML/MIN (>60); Globulin 2.6 g/dL (1.3-3.2); Glucose 95 mg/dl (74-100); Sodium 135 mmol/L (136-145); Total Protein,Serum 5.5 g/dl (6.3-8.2)
--- NOTE | 2023-05-27 08:22 | EXP.SURG.PN ---
Subjective Narrative: Surgical consultation was obtained yesterday after CT scan was performed which revealed findings of possible pneumatosis suggestive of bowel ischemia. Patient did not clinically have scenario consistent with mesenteric ischemia as she did not have significant abdominal pain. CT scan without contrast was followed with CT scan with oral contrast which revealed inflammatory changes of small bowel as described. Differential diagnosis includes infectious enterocolitis and inflammatory bowel disease. Pneumatosis of some small bowel loops proximal to the inflamed loops again noted. This is probably secondary to the inflamed intestine rather than ischemic bowel. Moderate amount of nonspecific free fluid in the abdomen and pelvis. Patient does state that she feels somewhat better. She actually denies abdominal pain at this time. However she has had belching. She has had issues with leakage around the ileostomy due to retraction of the ileostomy likely secondary to abdominal distention and ascites. Exam Data for Last 24 hours Vital signs and Labs for Last 24 Hours: Temp Pulse Resp BP Pulse Ox O2 Del Method 98.1 F 79 16 165/90 H 91 L Room Air 05/27/23 07:57 05/27/23 07:57 05/27/23 07:57 05/27/23 07:57 05/27/23 07:57 05/27/23 07:57 Laboratory Results - last 24 hr 05/26/23 14:10: WBC 3.4 L, RBC 3.82 L, Hgb 11.0 L, Hct 32.4 L, MCV 84.7, MCH 28.8, MCHC 34.0, RDW 16.9, Plt Count 167, MPV 8.6, Neut % (Auto) 75.9, Lymph % (Auto) 17.8, [place] % (Auto) 2.5, Eos % (Auto) 3.6, Baso % (Auto) 0.1, Neut # (Auto) 2.6, Lymph # (Auto) 0.6 L, [place] # (Auto) 0.1, Eos # (Auto) 0.1, Baso # (Auto) 0.0, Sodium 135 L, Potassium 3.2 L, Chloride 95 L, Carbon Dioxide 39 H, Anion Gap 4.2 L, BUN 19 H, Creatinine 2.20 H, Estimated Creat Clear 21, Estimated GFR 22 L, Est GFR ( Amer) 27 L, Glucose 99, Lactate 0.8, Calcium 10.5 H, C-Reactive Protein 24.1 H 05/26/23 21:30: WBC 3.0 L, RBC 4.09 L, Hgb 11.6 L, Hct 33.8 L, MCV 82.5, MCH 28.3, MCHC 34.3, RDW 16.8, Plt Count 183, MPV 8.6, Neut % (Auto) 72.7, Lymph % (Auto) 19.7, [place] % (Auto) 4.3, Eos % (Auto) 3.1, Baso % (Auto) 0.1, Neut # (Auto) 2.2, Lymph # (Auto) 0.6 L, [place] # (Auto) 0.1, Eos # (Auto) 0.1, Baso # (Auto) 0.0, Lactate 1.1 05/27/23 07:13: WBC 2.6 L, RBC 4.03 L, Hgb 11.5 L, Hct 34.2 L, MCV 84.9, MCH 28.5, MCHC 33.6, RDW 16.9, Plt Count 152, MPV 8.8, Neut % (Auto) 60.4, Lymph % (Auto) 28.3, [place] % (Auto) 8.4, Eos % (Auto) 2.6, Baso % (Auto) 0.3, Neut # (Auto) 1.6 L, Lymph # (Auto) 0.7, [place] # (Auto) 0.2, Eos # (Auto) 0.1, Baso # (Auto) 0.0 I & O for Last 24 hours: Intake & Output 05/24/23 05/25/23 05/26/23 05/27/23 11:59 11:59 11:59 11:59 Intake Total 1570 / 1570 2139 / 2139 Output Total 850 / 850 251 / 251 Balance 720 / 720 1888 / 1888 Weight 120 lb 122 lb 7 oz 122 lb 7.01 oz *Routine Abdominal Exam Abdominal: Present distended Comments: She has tenderness most focally in the mid abdomen without guarding or rebound. Progress Note: A&P Assessment and plan (1) Abdominal pain: Status: Acute Assessment and Plan Assessment and Plan for All Diagnoses:: Radiographic findings could be inflammatory however the high probability of focal/regional ischemia secondary to mechanical issues (malignancy, ascites) is a real legitimate concern. No indications for immediate surgical intervention. However, intra-abdominal pathology would likely be refractory to non-interventional management and require intervention which would be beyond the capabilities of this facility. Therefore recommend initiate measures for transfer to [facility].
[2023-05-27 08:31] LABS: Anion Gap 5.1 mEq/L (5-15); Potassium 3.1 mmoL/L (3.5-5.1)
[2023-05-27 08:45] LABS: Magnesium 2.1 mg/dl (1.6-2.3)
--- NOTE | 2023-05-27 12:36 | EXP.ACUTE.PN ---
Subjective *Date: 05/27/23 *Time: 12:36 Interval history: She is weak, but able to sleep. She has had ice chips and a small amount of Jell-O. Her ileostomy seems to be functioning. Dr. Patterson's consult is appreciated. I too, do not feel that her bowel is ischemic. The CT findings are likely due to her abdominal metastasic disease. Medical Exam Vital signs and Labs for Last 24 Hours: Vital Signs Temp Pulse Resp BP Pulse Ox O2 Del Method 05/27/23 11:00 Room Air 05/27/23 09:00 Room Air 05/27/23 08:00 Room Air 05/27/23 07:57 98.1 F 79 16 165/90 H 91 L Room Air 05/27/23 06:37 Room Air 05/27/23 05:00 Room Air 05/27/23 04:00 98 F 71 16 166/89 H 96 05/27/23 03:00 Room Air 05/27/23 01:00 Room Air 05/26/23 23:00 Room Air 05/26/23 21:00 Room Air 05/26/23 20:00 93 L Room Air 05/26/23 20:00 97.8 F 78 16 140/90 93 L Room Air 05/26/23 18:53 Room Air 05/26/23 17:00 Room Air 05/26/23 14:50 Room Air 05/26/23 13:00 Room Air Intake and Output 05/27/23 05/27/23 05/27/23 03:59 11:59 19:59 Intake Total 1135 / 2139 0 9 Output Total 150 / 251 1 / 251 Balance 1887 -1887 Intake: Intake, Oral Amount 120 / 120 0 / 120 Intake, Total IV Amount 1014 Ertapenem Sodium 0.5 gm In 0.9 50 / 50 % Sodium Chloride 50 ml @ 100 mls/hr IV Q24H [facility] Rx#:[id number] Lactated Ringers 1000ML 1,000 965 / 1969 ml @ 100 mls/hr IV .Q10H [facility] Rx #:[id number] Output: Output, Urine Amount 150 / 151 1 / 151 Other: Number of Unmeasured Voids 1 1 Weight 122 lb 7.01 oz Laboratory Results - last 24 hr 05/26/23 14:10: WBC 3.4 L, RBC 3.82 L, Hgb 11.0 L, Hct 32.4 L, MCV 84.7, MCH 28.8, MCHC 34.0, RDW 16.9, Plt Count 167, MPV 8.6, Neut % (Auto) 75.9, Lymph % (Auto) 17.8, [place] % (Auto) 2.5, Eos % (Auto) 3.6, Baso % (Auto) 0.1, Neut # (Auto) 2.6, Lymph # (Auto) 0.6 L, [place] # (Auto) 0.1, Eos # (Auto) 0.1, Baso # (Auto) 0.0, Sodium 135 L, Potassium 3.2 L, Chloride 95 L, Carbon Dioxide 39 H, Anion Gap 4.2 L, BUN 19 H, Creatinine 2.20 H, Estimated Creat Clear 21, Estimated GFR 22 L, Est GFR ( Amer) 27 L, Glucose 99, Lactate 0.8, Calcium 10.5 H, C-Reactive Protein 24.1 H 05/26/23 21:30: WBC 3.0 L, RBC 4.09 L, Hgb 11.6 L, Hct 33.8 L, MCV 82.5, MCH 28.3, MCHC 34.3, RDW 16.8, Plt Count 183, MPV 8.6, Neut % (Auto) 72.7, Lymph % (Auto) 19.7, [place] % (Auto) 4.3, Eos % (Auto) 3.1, Baso % (Auto) 0.1, Neut # (Auto) 2.2, Lymph # (Auto) 0.6 L, [place] # (Auto) 0.1, Eos # (Auto) 0.1, Baso # (Auto) 0.0, Lactate 1.1 05/27/23 07:13: WBC 2.6 L, RBC 4.03 L, Hgb 11.5 L, Hct 34.2 L, MCV 84.9, MCH 28.5, MCHC 33.6, RDW 16.9, Plt Count 152, MPV 8.8, Neut % (Auto) 60.4, Lymph % (Auto) 28.3, [place] % (Auto) 8.4, Eos % (Auto) 2.6, Baso % (Auto) 0.3, Neut # (Auto) 1.6 L, Lymph # (Auto) 0.7, [place] # (Auto) 0.2, Eos # (Auto) 0.1, Baso # (Auto) 0.0, Sodium 135 L, Potassium 3.1 L, Chloride 94 L, Carbon Dioxide 39 H, Anion Gap 5.1, BUN 18 H, Creatinine 2.10 H, Estimated Creat Clear 22, Estimated GFR 23 L, Est GFR ( Amer) 28 L, Glucose 95, Calcium 10.3 H, Magnesium 2.1 D, Total Bilirubin 0.4, AST 21, ALT 12, Alkaline Phosphatase 90, Total Protein 5.5 L, Albumin 2.9 L, Globulin 2.6, Albumin/Globulin Ratio 1.1 I & O for Labs for Last 24 Hours: Intake & Output 05/25/23 05/26/23 05/27/23 05/28/23 11:59 11:59 11:59 11:59 Intake Total 1570 / 1570 2139 / 2139 Output Total 850 / 850 251 / 251 Balance 720 / 720 1888 / 1888 Weight 120 lb 122 lb 7 oz 122 lb 7.01 oz Head: Present normocephalic Neck: Present normal inspection Respiratory: Present CTA bilaterally; Absent respiratory distress Cardiac: Present Reg Rate and Rhythm GI: Present soft, distention, hyperactive bowel sounds and other (ileostomy) Rectal (female): Present deferred (female): Present deferred Extremities: Absent edema Skin: Present intact and pallor Neuro: P
[2023-05-27 15:35] VITALS: BP 142/79; PULSE 77; RESP 17; TEMP 36.6; O2SAT 93
--- NOTE | 2023-05-27 16:46 | PC.NURSE ---
Pt is alert and oriented x4. Pt did take a shower this AM. Ileostomy bag changed once this shift, no issues out of the bag since changing, good output measured. Ambulating to the bathroom with one assist. Pt has complained of pain one time, treated per mar. Pt has complained of heartburn one time, treated per aug. Pt remains on IV fluids through portacath. Pt has been tolerating clears. Pt has voiced no other complaints this shift. Bowel sounds active. Lung sounds clear. Bed in low position, call light in reach.
[2023-05-27 20:00] VITALS: BP 147/80; PULSE 91; RESP 18; TEMP 36.8; O2SAT 90
[2023-05-28 04:00] VITALS: BP 136/75; PULSE 71; RESP 18; TEMP 36.6; O2SAT 92; BMI 23.6
--- NOTE | 2023-05-28 05:00 | PC.NURSE ---
AMBULATORY TO THE REST ROOM WITH 1 ASSIST. . VOIDED. APPROX 300 ML THIN DARK GREEN SECRETIONS EMPTIED FROM COLOSTOMY BAG. PATIENT C/O BELCHING. HAS NOT REQUIRED PAIN MEDS THIS SHIFT.
[2023-05-28 07:26] LABS: Alanine Aminotransferase 12 U/L (12-78); Albumin Level 3.1 g/dl (3.5-5.0); Albumin/Globulin Ratio 1.1 (1.1-1.8); Alkaline Phosphatase 77 U/L (38-126); Anion Gap 5.1 mEq/L (5-15); Aspartate Amino Transferase 21 U/L (14-36); Bilirubin,Total 0.6 mg/dl (0.2-1.3); Blood Urea Nitrogen 15 mg/dl (7-17); Calcium 9.6 mg/dl (8.4-10.2); Carbon Dioxide 36 mmol/L (22.0-30.0); Chloride 95 mmol/L (98-107); Creatinine Clearance Estimated 23 mL/min (50-200); Estimated Glomerular Filt Rate 23 ml/min (>60); GFR (African American) 28 ML/MIN (>60); Globulin 2.7 g/dL (1.3-3.2); Glucose 97 mg/dl (74-100); Potassium 3.1 mmoL/L (3.5-5.1); Sodium 133 mmol/L (136-145); Total Protein,Serum 5.8 g/dl (6.3-8.2)
--- NOTE | 2023-05-28 07:34 | P.PN_ITS ---
Subjective Narrative: Reportedly uneventful night. Still belching. States she is not having significant pain. Some green liquid output from the ileostomy. Exam Data for Last 24 hours Vital signs and Labs for Last 24 Hours: Temp Pulse Resp BP Pulse Ox O2 Del Method 97.9 F 71 18 136/75 92 L Room Air 05/28/23 04:00 05/28/23 04:00 05/28/23 04:00 05/28/23 04:00 05/28/23 04:00 05/28/23 06:40 Laboratory Results - last 24 hr 05/27/23 07:13: WBC 2.6 L, RBC 4.03 L, Hgb 11.5 L, Hct 34.2 L, MCV 84.9, MCH 28.5, MCHC 33.6, RDW 16.9, Plt Count 152, MPV 8.8, Neut % (Auto) 60.4, Lymph % (Auto) 28.3, [place] % (Auto) 8.4, Eos % (Auto) 2.6, Baso % (Auto) 0.3, Neut # (A uto) 1.6 L, Lymph # (Auto) 0.7, [place] # (Auto) 0.2, Eos # (Auto) 0.1, Baso # (Auto) 0.0, Sodium 135 L, Potassium 3.1 L, Chloride 94 L, Carbon Dioxide 39 H, Anion Gap 5.1, BUN 18 H, Creatinine 2.10 H, Estimated Creat Clear 22, Estimated GFR 23 L, Est GFR ( Amer) 28 L, Glucose 95, Calcium 10.3 H, Magnesium 2.1 D, Total Bilirubin 0.4, AST 21, ALT 12, Alkaline Phosphatase 90, Total Protein 5.5 L, Albumin 2.9 L, Globulin 2.6, Albumin/Globulin Ratio 1.1 I & O for Last 24 hours: Intake & Output 05/25/23 05/26/23 05/27/23 05/28/23 11:59 11:59 11:59 11:59 Intake Total 1570 / 1570 2139 / 2139 3740 / 3740 Output Total 850 / 850 251 / 251 401 / 401 Balance 720 / 720 1888 / 1888 3339 / 3339 Weight 120 lb 122 lb 7 oz 122 lb 7.01 oz 128 lb *Routine Abdominal Exam Abdominal: Present tenderness, distended and guarding Progress Note: A&P Assessment and plan (1) 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 Potentially has some focal ischemia of bowel secondary to condition (ascites, metstatic disease, peritoneal carcinomatosis) with concern for developing necrosis and impending perforation. Unlikely her condition will improve without surgical intervention. However, surgical intervention would carry profound mortality risk and may not even be feasible. I would advocate discussion being held with surgical oncology at [facility] along with [employer] of images to determine if operative intervention is a reasonable consideration.
--- NOTE | 2023-05-28 07:49 | XR_ITS ---
FINAL REPORT CLINICAL HISTORY: abdominal pain COMPARISON: 04/06/2023 FINDINGS: There is new airspace disease in the right lung base most suspicious for pneumonia. The left lung is clear. There is a right chest port in the SVC. There is no evidence of effusion, pneumothorax or other significant pleural disease. The mediastinum is unremarkable. The heart size is normal. The abdomen exam demonstrates the visualized intestinal gas pattern to be unremarkable without evidence to suggest obstruction. There is no free intraperitoneal air. no abdominal radiopacities are seen in the abdomen. IMPRESSION: Extensive right lung pneumonia. Unremarkable abdomen. Reviewed, Interpreted and Dictated by Fanta Porter MD Transcribed by Carole Larios Authenticated and [facility]
[2023-05-28 08:00] VITALS: BP 145/72; PULSE 79; TEMP 36.6
--- NOTE | 2023-05-28 08:30 | EXP.ACUTE.PN ---
Subjective *Date: 05/28/23 *Time: 08:30 Interval history: Patient has experienced some nausea and questionable vomiting. Her ileostomy has been working. She is afraid to eat and drink. She does have some abdominal pain but mostly complains of heartburn this morning. Patient states she has voided. She denies chest pain and shortness of breath. Per nursing notes: She has been up to the bathroom to void. Potassium remains low at 3.1. BUN is 15 and creatinine is 2.1. Medical Exam Vital signs and Labs for Last 24 Hours: Vital Signs Temp Pulse Resp BP Pulse Ox O2 Del Method 05/28/23 08:00 97.8 F 79 145/72 H 05/28/23 07:49 Room Air 05/28/23 06:40 Room Air 05/28/23 04:00 97.9 F 71 18 136/75 92 L Room Air 05/28/23 05:00 Room Air 05/28/23 03:00 Room Air 05/28/23 00:53 Room Air 05/27/23 22:53 Room Air 05/27/23 21:00 Room Air 05/27/23 20:00 90 L Room Air 05/27/23 20:00 98.2 F 91 H 18 147/80 H 90 L Room Air 05/27/23 18:49 Room Air 05/27/23 16:52 Room Air 05/27/23 15:00 Room Air 05/27/23 15:35 97.8 F 77 17 142/79 H 93 L Room Air 05/27/23 13:00 Room Air 05/27/23 11:00 Room Air 05/27/23 09:00 Room Air Intake and Output 05/27/23 05/28/23 05/28/23 19:59 03:59 11:59 Intake Total 1471 / 1471 1228 / 2699 1041 / 3740 Output Total 400 / 400 0 / 400 1 / 401 Balance 1071 / 1071 1228 / 2299 1040 / 3339 Intake: Intake, Oral Amount 240 / 240 480 / 720 200 / 920 Intake, Total IV Amount 1231 / 1231 748 / 1979 841 / 2820 Ertapenem Sodium 0.5 gm In 0.9 50 / 50 % Sodium Chloride 50 ml @ 100 mls/hr IV Q24H [facility] Rx#:[id number] Lactated Ringers 1000ML 1,000 1231 / 1231 698 / 1929 841 / 2770 ml @ 100 mls/hr IV .Q10H [facility] Rx #:[id number] Output: Output, Urine Amount 150 / 150 0 / 150 1 / 151 Output, Stool Amount 250 / 250 Other: Number of Unmeasured Voids 2 1 1 Number of Bowel Movements 1 1 Weight 128 lb Patient Weight 05/28/23 11:59 Weight 128 lb Laboratory Results - last 24 hr 05/27/23 07:13: Sodium 135 L, Potassium 3.1 L, Chloride 94 L, Carbon Dioxide 39 H, Anion Gap 5.1, BUN 18 H, Creatinine 2.10 H, Estimated Creat Clear 22, Estimated GFR 23 L, Est GFR ( Amer) 28 L, Glucose 95, Calcium 10.3 H, Magnesium 2.1 D, Total Bilirubin 0.4, AST 21, ALT 12, Alkaline Phosphatase 90, Total Protein 5.5 L, Albumin 2.9 L, Globulin 2.6, Albumin/Globulin Ratio 1.1 05/28/23 06:52: Sodium 133 L, Potassium 3.1 L, Chloride 95 L, Carbon Dioxide 36 H, Anion Gap 5.1, BUN 15, Creatinine 2.10 H, Estimated Creat Clear 23, Estimated GFR 23 L, Est GFR ( Amer) 28 L, Glucose 97, Calcium 9.6, Total Bilirubin 0.6, AST 21, ALT 12, Alkaline Phosphatase 77, Total Protein 5.8 L, Albumin 3.1 L, Globulin 2.7, Albumin/Globulin Ratio 1.1 I & O for Labs for Last 24 Hours: Intake & Output 05/25/23 05/26/23 05/27/23 05/28/23 11:59 11:59 11:59 11:59 Intake Total 1570 / 1570 2139 / 2139 3740 / 3740 Output Total 850 / 850 251 / 251 401 / 401 Balance 720 / 720 1888 / 1888 3339 / 3339 Weight 120 lb 122 lb 7 oz 122 lb 7.01 oz 128 lb Constitutional: Present no acute distress and somnolent Respiratory: Present CTA bilaterally Cardiac: Present Reg Rate and Rhythm GI: Present soft, distention, tenderness (Diffuse abdominal tenderness) and hyperactive bowel sounds Comments:: Green stool in ileostomy bag Extremities: Absent edema or calf tenderness Neuro: Present alert (Awakened during assessment. 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
[2023-05-28 08:46] LABS: Alanine Aminotransferase 11 U/L (12-78); Alkaline Phosphatase 77 U/L (38-126); Aspartate Amino Transferase 20 U/L (14-36); Bilirubin,Total 0.7 mg/dl (0.2-1.3); Blood Urea Nitrogen 16 mg/dl (7-17); Calcium 9.8 mg/dl (8.4-10.2); Carbon Dioxide 38 mmol/L (22.0-30.0); Chloride 94 mmol/L (98-107); Creatinine Clearance Estimated 23 mL/min (50-200); Estimated Glomerular Filt Rate 23 ml/min (>60); GFR (African American) 28 ML/MIN (>60); Glucose 98 mg/dl (74-100)
[2023-05-28 08:47] LABS: INR 0.97 (0.9-1.1); Prothrombin Time 10.5 seconds (10.1-12.5); Total Protein,Serum 6.1 g/dl (6.3-8.2)
[2023-05-28 08:54] LABS: Albumin Level 3.3 g/dl (3.5-5.0); Albumin/Globulin Ratio 1.2 (1.1-1.8); Anion Gap 4.2 mEq/L (5-15); Globulin 2.8 g/dL (1.3-3.2); Potassium 3.2 mmoL/L (3.5-5.1); Sodium 133 mmol/L (136-145)
[2023-05-28 10:47] VITALS: BMI 23.5
--- NOTE | 2023-05-28 11:10 | PC.NURSE ---
(POA) Radha [phone] active contact for contact.
[2023-05-28 15:47] VITALS: BP 190/67; PULSE 93; RESP 16; TEMP 36.8; O2SAT 84
[2023-05-28 16:04] VITALS: BP 130/67; PULSE 93; RESP 16; TEMP 36.8; O2SAT 91
[2023-05-28 20:00] VITALS: BP 106/57; PULSE 79; RESP 16; TEMP 36.8; O2SAT 92
[2023-05-29 04:00] VITALS: BP 110/66; PULSE 60; RESP 18; TEMP 36.4; O2SAT 92; BMI 23.8
--- NOTE | 2023-05-29 05:33 | PC.NURSE ---
Patient has slept well this shift. Patient voiced no c/o of pain this shift. x1 assist to ambulate to bathroom to void. Patient has tolerated full liquid diet this shift. bed alarm remains on for safety. Call light within reach.
[2023-05-29 08:00] VITALS: BP 115/55; PULSE 70; RESP 16; TEMP 36.4; O2SAT 91
--- NOTE | 2023-05-29 08:10 | EXP.ACUTE.PN ---
Subjective *Date: 05/29/23 *Time: 10:11 Interval history: Patient states she slept more than usual. She states she does feel better today but does not know why. She was able to eat some full liquids without problems. She has been up to the bathroom with assistance without difficulties. Medical Exam Vital signs and Labs for Last 24 Hours: Vital Signs Temp Pulse Resp BP Pulse Ox O2 Del Method 05/29/23 07:00 Room Air 05/29/23 05:00 Room Air 05/29/23 04:00 97.6 F 60 18 110/66 92 L Room Air 05/29/23 03:00 Room Air 05/29/23 01:00 Room Air 05/28/23 23:00 Room Air 05/28/23 21:00 Room Air 05/28/23 20:00 Room Air 05/28/23 20:00 98.2 F 79 16 106/57 L 92 L Room Air 05/28/23 18:56 Room Air 05/28/23 17:00 Room Air 05/28/23 16:04 98.2 F 93 H 16 130/67 91 L Room Air 05/28/23 15:55 Room Air 05/28/23 15:47 98.2 F 93 H 16 190/67 H 84 L Room Air 05/28/23 11:00 Room Air 05/28/23 09:00 Room Air Intake and Output 05/28/23 05/29/23 05/29/23 19:59 03:59 11:59 Intake Total 1097 / 1097 700 / 1797 580 / 2377 Output Total 200 / 200 0 / 200 Balance 897 / 897 700 / 1597 580 / 2177 Intake: Intake, Oral Amount 240 / 240 580 / 820 Intake, Total IV Amount 857 / 857 700 / 1557 KCl 10mEq/100ml 100 ml @ 100 300 / 300 mls/hr IV Q1H [facility] Rx#:[id number] Lactated Ringers 1000ML 1,000 557 / 557 700 / 1257 ml @ 100 mls/hr IV .Q10H [facility] Rx #:[id number] Output: Output, Urine Amount 200 / 200 0 / 200 Other: Number of Unmeasured Voids 1 Weight 129 lb 3.2 oz Patient Weight 05/29/23 11:59 Weight 129 lb 3.2 oz Laboratory Results - last 24 hr 05/28/23 08:28: PT 10.5, INR 0.97, Sodium 133 L, Potassium 3.2 L, Chloride 94 L, Carbon Dioxide 38 H, Anion Gap 4.2 L, BUN 16, Creatinine 2.10 H, Estimated Creat Clear 23, Estimated GFR 23 L, Est GFR ( Amer) 28 L, Glucose 98, Calcium 9.8, Total Bilirubin 0.7, AST 20, ALT 11 L, Alkaline Phosphatase 77, Total Protein 6.1 L, Albumin 3.3 L, Globulin 2.8, Albumin/Globulin Ratio 1.2 I & O for Labs for Last 24 Hours: Intake & Output 05/26/23 05/27/23 05/28/23 05/29/23 11:59 11:59 11:59 11:59 Intake Total 1570 / 1570 2139 / 2139 3740 / 3740 2377 / 2377 Output Total 850 / 850 251 / 251 651 / 651 200 / 200 Balance 720 / 720 1888 / 1888 3089 / 3089 2177 / 2177 Weight 122 lb 7 oz 122 lb 7.01 oz 127 lb 13.89 oz 129 lb 3.2 oz Constitutional: Present no acute distress Comment:: Assisted to and from the bathroom without problems. Very steady gait. Respiratory: Present CTA bilaterally (Anteriorly and posteriorly) Cardiac: Present Reg Rate and Rhythm GI: Present soft, distention and normal bowel sounds Comments:: Ileostomy bag in place with green stool Extremities: Present edema (Trace of hand and leg edema) Skin: Present pallor Neuro: Present alert and oriented x 3 Comment:: Speech is more clear today. 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: Status: Chronic Category: Medical Code(s): C18.9 - Malignant neoplasm of colon, unspecified; C77.2 - Secondary and unspecified malignant neoplasm of intra-abdominal lymph nodes (2) Peritoneal carcinomatosis: Status: Acute Category: Medical Code(s): C78.6 - Secondary malignant neoplasm of retroperitoneum and peritoneum (3) Abdominal ascites: Status: Chronic Qualifiers: Ascites type: malignant Qualified Code(s): R18.0 - Malignant ascites Category: Medical Code(s): R18.8 - Other ascites (4) Abdominal pain: Status: Acute Category: Medical Code(s): R10.9 - Unspecified abdominal pain (5) Acute hypokalemia: Status: Acute Category: Medical Code(s): E87.6 - Hypokalemia (6) Acute dehydration: Status: Acute Category: Medical Code(s): E86.0 - Dehyd
[2023-05-29 08:41] LABS: Chloride 96 mmol/L (98-107)
[2023-05-29 08:42] LABS: Potassium 3.3 mmoL/L (3.5-5.1); Sodium 132 mmol/L (136-145)
[2023-05-29 08:45] LABS: Anion Gap 3.3 mEq/L (5-15); Blood Urea Nitrogen 15 mg/dl (7-17); Calcium 8.8 mg/dl (8.4-10.2); Carbon Dioxide 36 mmol/L (22.0-30.0); Creatinine Clearance Estimated 23 mL/min (50-200); Estimated Glomerular Filt Rate 23 ml/min (>60); GFR (African American) 28 ML/MIN (>60); Glucose 105 mg/dl (74-100)
--- NOTE | 2023-05-29 09:06 | SW/DCPLANNER ---
Addendum entered by Karolina Hardy 05/29/23 14:41: Shyla khan/ [facility] evaluated this patient: she is agreeable to return home to her apartment w/ POA and admit under Hospice services. After speaking w/ Dr Molina the plan is to discharge this patient home this evening w/ Hospice to admit once she returns home. I have updated Shyla regarding this plan. Patient is agreeable. Original Note: I received a Hospice consult for this patient. Dr Molina rounded on patient this AM and she is agreeable to Hospice services. Patient information has been faxed to Shyla khan/ [facility]. I will follow up w/ Shyla and patient once information is reviewed.
[2023-05-29 12:57] LABS: Basophils % 0.3 % (0.1-2.0); Eosinophils # 0.1 K/mm3 (0.0-0.4); Eosinophils % 3.7 % (0.1-12.0); Hematocrit 33.6 % (37.0-47.0); Hemoglobin 11.3 g/dL (12.2-16.2); Lymphocytes # 0.6 K/mm3 (0.7-4.5); Lymphocytes % 24.4 % (10-50); Mean Corpuscular HGB Conc 33.5 g/dL (31.8-35.4); Mean Corpuscular Hemoglobin 28.4 pg (27.0-31.2); Mean Corpuscular Volume 84.7 fl (81-99); Mean Platelet Volume 10.2 fl (7.4-10.4); Monocytes # 0.1 K/mm3 (0.1-1.0); Monocytes % 5.3 % (1.7-9.3); Neutrophils # 1.6 K/mm3 (1.8-7.8); Neutrophils % 66.2 % (37.0-80.0); Platelet Count 204 K/mm3 (142-424); Red Blood Count 3.97 M/mm3 (4.20-5.40); Red Cell Distribution Width 17.2 % (11.5-17.5); White Blood Count 2.5 K/mm3 (4.8-10.8)
[2023-05-29 15:57] VITALS: BP 123/71; PULSE 73; RESP 17; TEMP 36.4; O2SAT 95
--- NOTE | 2023-05-29 18:39 | PC.NURSE ---
Per sumaya Quiros to dc diarrhea panel
--- NOTE | 2023-05-31 14:50 | EXP.DC.SUM ---
General Admission date:: 05/25/23 Discharge date: 05/29/23 HPI HPI HPI: 67-year-old female with history of metastatic colon cancer presented to [facility] ER with nausea, vomiting, dehydration. She has an ileostomy and a port in place. She is currently following with hematology/oncology as well as surgical oncology at [facility]. Patient states she had a GI bug this week on Sunday, throughout Sunday and Sunday and was unable to get her fluid infusion on Sunday at [facility]. She did receive double amount of fluids on Sunday as well as potassium. Has been throwing up intermittently since Sunday. Because of the holiday on 05/24, patient was unable to get fluids infused. She contacted her oncologist. Oncologist suggested she come to the emergency department for further evaluation. ER NOTE: On arrival, patient hemodynamically stable, alert, oriented x4, appropriate, GCS 15, moving all extremities spontaneously, pupils equal and reactive to light. Full physical exam performed and significant for tachycardic woman who is in no acute distress. Intermittently retching, but abdomen is soft, nontender. Lungs are clear to auscultation. Pulses equal and symmetric Differential includes CHRISTIANO, metabolic, PUD, gastritis, enteritis, gastroenteritis, pancreatitis, SBO, colitis, diverticulitis, nephrolithiasis, UTI, aortic pathology, mesenteric ischemia, , cholecystitis, appendicitis, hepatitis, among others. Patient was given 2 L of fluid, 40 mEq IV potassium, 40 mEq p.o. potassium for symptomatic management and correction of underlying abnormalities. Workup independently interpreted and significant for CHRISTIANO and hypokalemia. Repeat labs showed improved kidney function and improved potassium up to 3.2. See radiology read for full review of final results. On reevaluation, patient resting comfortably, but remains with CHRISTIANO. Given patient presentation, workup, history, this most likely represents CHRISTIANO in the setting of chronic vomiting and dehydration with associated hypokalemia. Because patient high risk for clinical decompensation, deemed appropriate for inpatient admission. Results were relayed to patient who voiced understanding and patient was agreeable to inpatient admission and management. Patient was admitted to the hospital for further definitive management, and remained hemodynamically stable during entire stay in the emergency department. THIS AM: The patient is crying out, complaining of severe heartburn and states she is having difficulty finding words. She is in uncharacteristic distress. Hospital Course Hospital Course Hospital Course: The patient was started on fluids and pain medication. Pantoprazole IV was ordered as well as Mylanta. She was started on potassium for hypokalemia. General surgery was consulted due to the patient's CT scan which showed multiple linear collections of air and loops of bowel which could represent pneumatosis. There was also a large amount of ascites throughout the abdomen and pelvis and soft tissue densities extending to the surface of the skin from the intraperitoneal cavity. Dr Patterson saw the patient and doubted she had mesenteric ischemia given her clinical presentation. He felt she would need a CT with oral contrast. The patient was able to tolerate some ice chips and Jell-O and her ileostomy seem to be functioning. Dr. Molina greeted with Dr. Patterson.. He did not feel her bowel was ischemic and that the CT likely represented metastatic disease. He started the patient on metoclopramide. Her pain did begin improving. She did begin having some green liquid output from the ileostomy. Dr. Patterson felt her condition was worsening and wanted discussion with to see if surgery would even be feasible. Dr. Molina spoke with Dr. Crowley and Dr. Mackey that [facility] and they did not feel the patient was a surgical case and hospice would be the best option. Hospice was consulted and accepted the patient and she w
== END 2023-05-29 19:10 | disposition hospice, home (50) | DRG 683 ==
LOC: ER 15:28 → 2ND 16:14
PROVIDERS: Nurse Practitioner Family; Surgery; Admitting Provider Internal Medicine Adolescent Medicine; Emergency Provider Emergency Medicine; PCP Family Medicine; Visit Provider Family Medicine
DX: N17.9 Acute kidney failure, unspecified; C18.9 Malignant neoplasm of colon, unspecified; C77.2 Secondary and unspecified malignant neoplasm of intra-abdominal lymph nodes; C78.6 Secondary malignant neoplasm of retroperitoneum and peritoneum; R18.0 Malignant ascites; C79.89 Secondary malignant neoplasm of other specified sites; Z51.5 Encounter for palliative care; E86.0 Dehydration; E87.6 Hypokalemia; Z85.3 Personal history of malignant neoplasm of breast; F41.9 Anxiety disorder, unspecified; E11.9 Type 2 diabetes mellitus without complications; Z85.850 Personal history of malignant neoplasm of thyroid; M19.90 Unspecified osteoarthritis, unspecified site; Z96.653 Presence of artificial knee joint, bilateral; F17.210 Nicotine dependence, cigarettes, uncomplicated; Z93.2 Ileostomy status
CPT/HCPCS: 36415; 70450; 74021; 74176; 80048; 80053; 82310; 82378; 83605; 83735; 84443; 85025; 85610; 86140; 96360; 96361; 99285; J1335; J1642; J2405

== ENCOUNTER 2023-06-08 22:00 | Emergency (ER) | payer OTHER, SELFPAY ==
--- NOTE | 2023-06-08 22:06 | HMH.EDGENADL ---
Discharge Plan Disposition Patient Disposition: Home, Self-Care Condition: Fair Prescriptions Prescriptions: No Action olanzapine 2.5 mg tablet 2.5 mg PO DAILY Qty: 30 2RF levothyroxine 200 mcg capsule 200 mcg PO DAILY Qty: 30 5RF oxycodone-acetaminophen 5-325 mg Tablet 1 tab PO QID Qty: 120 0RF alprazolam 0.25 mg tablet 0.25 mg PO TID Qty: 90 0RF Patient Comments: TAKE 1 TABLET BY MOUTH THREE TIMES DAILY potassium chloride 20 mEq tablet,ER particles/crystals 20 meq PO DAILY Qty: 30 4RF metoclopramide HCl 5 mg tablet 2.5 mg PO TID Qty: 30 2RF Patient Comments: TAKE 1/2 (ONE-HALF) TABLET BY MOUTH THREE TIMES DAILY ketoconazole 2 % cream 1 applic topical DAILY Qty: 30 2RF Referrals Follow up/Referrals: Mikie Molina MD [Primary Care Provider] - See instructions Activity Restrictions/Add. Instructions Additional Instructions/Restrictions: Please follow-up with your primary care provider. Please return to the emergency department if you develop any new or worsening symptoms or become concerned for your health. Clinical Impressions Clinical Impression: Acute dehydration, Colon carcinoma metastatic to multiple sites Instructions Patient Instructions: DI for Dehydration -- Adult Discharge ED Provider: Melissa Mackey General Adult HPI <Santiago Ly MD - Last Filed: 06/09/23 00:24> General Chief complaint: Recheck/Abnormal Lab/Rx Stated complaint: weak Time Seen by Provider: 06/08/23 22:05 History of Present Illness HPI narrative: 67-year-old female, history of metastatic colon cancer, recently placed on hospice presents with concern for dehydration. She reports that she was discharged a couple weeks ago and was supposed be placed on IV fluid infusions at home but they have not been set up. She reports that she does not eat or drink a whole lot and feels dehydrated. She reports cough since yesterday but does not feel significantly short of breath. She does feel generally weak. She does not want any blood work or radiographic imaging to assess, she just wants fluids and to be discharged. Related Data Previous Rx's Medication Instructions Recorded alprazolam 0.25 mg tablet 0.25 mg PO TID Anxiety #90 tabs 05/29/23 ketoconazole 2 % topical cream 1 applic topical DAILY Skin 05/29/23 Condition #30 grams levothyroxine 200 mcg capsule 200 mcg PO DAILY hypothyroidism 05/29/23 #30 caps metoclopramide HCl 5 mg tablet 2.5 mg PO TID GI ISSUES #30 tabs 05/29/23 olanzapine 2.5 mg tablet 2.5 mg PO DAILY anxiety #30 tabs 05/29/23 oxycodone-acetaminophen 5 mg-325 1 tab PO QID Pain #120 tabs 05/29/23 mg tablet potassium chloride 20 mEq 20 meq PO DAILY Supplement #30 tabs 05/29/23 tablet,extended release(part/cryst) Allergies Allergy/AdvReac Type Severity Reaction Status Date / Time No Known Allergies Allergy Verified 05/25/23 10:55 [facility] <Santiago Ly MD - Last Filed: 06/09/23 00:24> [facility] Disclaimer: The information contained in this section may have been updated after the patient was seen, as this information can be updated by other users. Medical History Age-related osteoporosis without current pathological fracture Anxiety BMI 32.0-32.9,adult Cancer Colon cancer Diabetes mellitus Dizziness History of breast cancer History of hypertension Lung nodule Osteoarthritis Thyroid cancer Surgical History H/O bilateral mastectomy H/O thyroidectomy History of appendectomy History of bunionectomy of left great toe History of ileostomy Total knee replacement status left and right Family History Other Coronary artery disease Hypertension Stroke Social History (Updated 05/25/23 @ 17:20 by Shanel Ceron RN) Smoking Status: Current every day smoker tobacco type: cigarettes pac
[2023-06-08 22:14] VITALS: BP 115/78; PULSE 76; RESP 18; O2SAT 100; BMI 22.6
[2023-06-08 22:30] VITALS: BP 126/72; PULSE 81; O2SAT 91
--- NOTE | 2023-06-08 22:48 | PC.NURSE ---
Rounded on patient; call light within reach
[2023-06-08 23:00] VITALS: BP 123/68; PULSE 72; O2SAT 98
[2023-06-08 23:30] VITALS: BP 126/66; PULSE 72; RESP 16; O2SAT 99
--- NOTE | 2023-06-08 23:47 | PC.NURSE ---
2nd liter of LR started. Patient states that she is feeling much better.
[2023-06-09] VITALS: BP 141/77; PULSE 72; O2SAT 99
[2023-06-09 00:46] VITALS: BP 141/77; PULSE 65; RESP 16; TEMP 36.6; O2SAT 98
== END 2023-06-09 00:48 | disposition home or self-care (01) ==
PROVIDERS: Emergency Provider Emergency Medicine; PCP Psychiatry & Neurology Sleep Medicine
DX: E86.0 Dehydration (principal); C18.9 Malignant neoplasm of colon, unspecified; C79.9 Secondary malignant neoplasm of unspecified site; E11.9 Type 2 diabetes mellitus without complications; F17.210 Nicotine dependence, cigarettes, uncomplicated
CPT/HCPCS: 96360; 96361; 99284

== ENCOUNTER 2023-06-23 05:12 | Emergency (ER) | payer OTHER, SELFPAY ==
[2023-06-23 05:12] VITALS: BP 102/60; PULSE 81; RESP 20; TEMP 36.5; O2SAT 99; BMI 22.3
--- NOTE | 2023-06-23 05:17 | XR_ITS ---
PROCEDURE INFORMATION: Exam: XR Chest Exam date and time: 06/23/2023 5:19 AM Age: 67 years old Clinical indication: Shortness of breath; Additional info: SOA, hospice, metastatic cancer TECHNIQUE: Imaging protocol: Radiologic exam of the chest. Views: 1 view. COMPARISON: 1. CT ANGIO CHEST PE PROTOCOL 04/27/2023 7:58 AM 2. CR XR ACUTE ABDOMEN SERIES 05/28/2023 9:03 AM FINDINGS: Tubes, catheters and devices: Right-sided single-lumen chest port with tip at SVC right atrial junction. Lungs: Right lower lung field hazy opacities are similar to slightly improved from the prior acute abdominal series chest radiograph. 1 cm left lower lung field nodule probably stable in size versus prior CT image. Pleural spaces: No pleural thickening. Heart/Mediastinum: Cardiac silhouette not enlarged. Vasculature: Aortic arch calcification. Bones/joints: Spine degenerative changes. IMPRESSION: 1. Right lower lung field pneumonia. Recommend follow to resolution. 2. Probably stable sized left lower lung field pulmonary nodule.
[2023-06-23 05:30] VITALS: BP 105/55; PULSE 78; O2SAT 99
--- NOTE | 2023-06-23 05:57 | PC.NURSE ---
hospice called and notified of Patient being here.
--- NOTE | 2023-06-23 06:22 | [facility].EDGENADL ---
Discharge Plan Disposition Patient Disposition: Home, Self-Care Prescriptions Prescriptions: New amoxicillin-pot clavulanate 875-125 mg tablet 1 tab PO BID 7 Days Qty: 14 0RF No Action olanzapine 2.5 mg tablet 2.5 mg PO DAILY Qty: 30 2RF levothyroxine 200 mcg capsule 200 mcg PO DAILY Qty: 30 5RF oxycodone-acetaminophen 5-325 mg Tablet 1 tab PO QID Qty: 120 0RF alprazolam 0.25 mg tablet 0.25 mg PO TID Qty: 90 0RF Patient Comments: TAKE 1 TABLET BY MOUTH THREE TIMES DAILY potassium chloride 20 mEq tablet,ER particles/crystals 20 meq PO DAILY Qty: 30 4RF metoclopramide HCl 5 mg tablet 2.5 mg PO TID Qty: 30 2RF Patient Comments: TAKE 1/2 (ONE-HALF) TABLET BY MOUTH THREE TIMES DAILY ketoconazole 2 % cream 1 applic topical DAILY Qty: 30 2RF Referrals Follow up/Referrals: Fanta Molina MD [Primary Care Provider] - See instructions Activity Restrictions/Add. Instructions Additional Instructions/Restrictions: Please take Augmentin as prescribed for possible pneumonia. Please follow-up with your hospice team. Clinical Impressions Clinical Impression: Hospice care patient, Colon carcinoma metastatic to multiple sites, Productive cough Discharge ED Provider: Santiago Ly General Adult HPI General Chief complaint: Shortness of Breath/Dyspnea Stated complaint: cp Time Seen by Provider: 06/23/23 05:17 Mode of Arrival: Ambulatory Source of Information: Patient Limitations: No Limitations Description of Symptoms (Recalled from ER Triage Doc. by RN): Patient had a dry cough for a week then vomited and now has a wet cough. History of Present Illness HPI narrative: 67-year-old female on home hospice secondary to metastatic colon cancer with peritoneal carcinomatosis presents with worsening cough and shortness of breath. She reports that she intermittently feels like she cannot catch her breath. Reports her cough was previously dry and is now productive of nasty material. Denies fever at home. Patient denies any acute abdominal pain nausea vomiting or chest pain. Daughter reports that she earlier this morning she was having chest pain and shortness of breath and abdominal pain and vomiting. The patient reports that she just wants it all to end . Related Data Previous Rx's Medication Instructions Recorded alprazolam 0.25 mg tablet 0.25 mg PO TID Anxiety #90 tabs 05/29/23 ketoconazole 2 % topical cream 1 applic topical DAILY Skin 05/29/23 Condition #30 grams levothyroxine 200 mcg capsule 200 mcg PO DAILY hypothyroidism 05/29/23 #30 caps metoclopramide HCl 5 mg tablet 2.5 mg PO TID GI ISSUES #30 tabs 05/29/23 olanzapine 2.5 mg tablet 2.5 mg PO DAILY anxiety #30 tabs 05/29/23 oxycodone-acetaminophen 5 mg-325 1 tab PO QID Pain #120 tabs 05/29/23 mg tablet potassium chloride 20 mEq 20 meq PO DAILY Supplement #30 tabs 05/29/23 tablet,extended release(part/cryst) amoxicillin 875 mg-potassium 1 tab PO BID 7 days #14 tabs 06/23/23 clavulanate 125 mg tablet Allergies Allergy/AdvReac Type Severity Reaction Status Date / Time No Known Allergies Allergy Verified 05/25/23 10:55 [facility] Disclaimer: The information contained in this section may have been updated after the patient was seen, as this information can be updated by other users. Medical History Age-related osteoporosis without current pathological fracture Anxiety BMI 32.0-32.9,adult Cancer Colon cancer Diabetes mellitus Dizziness History of breast cancer History of hypertension Lung nodule Osteoarthritis Thyroid cancer Surgical History H/O bilateral mastectomy H/O thyroidectomy History of appendectomy History of bunionectomy of left great toe History of ileostomy Total knee replacement status left and right Family History (Reviewed 05/23/23 @ 09:19 by Cathy Jeffries
[2023-06-23 06:44] VITALS: BP 94/56; PULSE 81; RESP 18; TEMP 36.5; O2SAT 100
== END 2023-06-23 06:48 | disposition home or self-care (01) ==
PROVIDERS: Emergency Provider Emergency Medicine; PCP Family Medicine
DX: R05.8 Other specified cough (principal); R06.02 Shortness of breath; C18.9 Malignant neoplasm of colon, unspecified; Z51.5 Encounter for palliative care
CPT/HCPCS: 71045; 99283